=== PATIENT | male | born 1945 | race Caucasian/White ===

== ENCOUNTER 2018-02-14 14:52 | Inpatient (IN) | payer MEDICARE ==
[2018-02-14] MEDS ORDERED: ASPIRIN 81 MG PO STA (15:27)
--- NOTE | 2018-02-14 15:37 | ED ---
Chest Pain HPI - General Chief Complaint: Chest Pain Stated Complaint: Chest pain Time Seen by Provider: 02/14/18 14:57 Source: patient, family, RN notes reviewed Mode of arrival: wheelchair Limitations: no limitations - History of Present Illness Initial Comments: This is a 73-year-old male with no prior history of heart disease states he been having intermittent episodes over last week of pain going down both arms and elbows. He states it's somewhat dull in nature gets as severe as 8/10 currently is pain-free no fevers chills nausea vomiting sweats associated with it this time he states she's had more frequent and longer episodes however. He did take 81 mg aspirin today. No other complaints or modifying factors at this time MD Complaint: chest pain - Related Data Home Medications Medication Instructions Recorded Confirmed Aspirin [[place] Aspirin EC] 81 mg PO DAILY 02/14/18 02/14/18 Ferrous Sulfate [Iron] 325 mg PO DAILY 02/14/18 02/14/18 Lisinopril [Prinivil] 10 mg PO DAILY 02/14/18 02/14/18 Multivitamins, Thera [Multivitamin 1 tab PO DAILY 02/14/18 02/14/18 (formulary)] Allergies Allergy/AdvReac Type Severity Reaction Status Date / Time No Known Allergies Allergy Verified 02/14/18 15:20 Review of Systems ROS Statement: Those systems with pertinent positive or pertinent negative responses have been documented in the HPI. ROS Other: All systems not noted in ROS Statement are negative. EKG Findings - EKG Results: EKG: interpreted by ERMD, sinus rhythm (Sinus tachycardia with first-degree AV block NH interval to 12 QRS duration 80 daily since QTC 322/[address] configuration) Past Medical History Past Medical History: Hypertension History of Any Multi-Drug Resistant Organisms: None Reported Past Surgical History: No Surgical Hx Reported Additional Past Surgical History / Comment(s): ulcer Past Psychological History: No Psychological Hx Reported Smoking Status: Never smoker Past Alcohol Use History: None Reported Past Drug Use History: None Reported General Exam - General Exam Comments Initial Comments: Is a well-developed well-nourished awake alert oriented timess 3 male Limitations: no limitations General appearance: alert, in no apparent distress Head exam: Present: atraumatic, normocephalic, normal inspection Eye exam: Present: normal appearance, PERRL, EOMI. Absent: scleral icterus, conjunctival injection, periorbital swelling ENT exam: Present: normal exam, mucous membranes moist Neck exam: Present: normal inspection. Absent: tenderness, meningismus, lymphadenopathy Respiratory exam: Present: normal lung sounds bilaterally. Absent: respiratory distress, wheezes, rales, rhonchi, stridor Cardiovascular Exam: Present: normal rhythm, tachycardia, normal heart sounds. Absent: systolic murmur, diastolic murmur, rubs, gallop, clicks GI/Abdominal exam: Present: soft, normal bowel sounds. Absent: distended, tenderness, guarding, rebound, rigid Extremities exam: Present: normal inspection, full ROM, normal capillary refill. Absent: tenderness, pedal edema, joint swelling, calf tenderness Back exam: Present: normal inspection Neurological exam: Present: alert, oriented X3, CN II-XII intact Psychiatric exam: Present: normal affect, normal mood Skin exam: Present: warm, dry, intact, normal color. Absent: rash Course Vital Signs 02/14/18 02/14/18 02/14/18 14:56 15:12 15:30 Temperature 97.5 F L Pulse Rate 115 H 112 H 102 H Respiratory 18 27 H 14 Rate Blood Pressure 200/126 168/99 O2 Sat by Pulse 98 97 Oximetry Chest Pain MDM - MDM Review the imaging shows no acute findings. The lab work results are within normal limits I did discuss case the patient and his and with Dr. Pierce. Patient be admitted for evaluation by cardiology for chest pain. Disposition Clinical Impression: Chest pain Disposition: ADMITTED IP TO THIS HOSP Condition: Stable Referrals: Niall Rojo MD [Primary Care Provider] - 1-2 days
[2018-02-14 15:58] LABS: HCT 44.4 % (39.0-53.0); HGB 14.4 gm/dL (13.0-17.5); MCH 30.8 pg (25.0-35.0); MCHC 32.5 g/dL (31.0-37.0); MCV 94.7 fL (80.0-100.0); RBC 4.69 m/uL (4.30-5.90); RDW 13.1 % (11.5-15.5); WBC 4.7 k/uL (3.8-10.6)
--- NOTE | 2018-02-14 15:58 | XR ---
EXAMINATION TYPE: XR chest 2V DATE OF EXAM: 02/14/2018 COMPARISON: NONE HISTORY: Chest pain into shoulder and arm for one week. TECHNIQUE: Frontal and lateral views of the chest are obtained. FINDINGS: There is chronic parenchymal change without suspicious focal air space opacity, pleural ef fusion, or pneumothorax seen. The cardiac silhouette size is within normal limits. The osseous str uctures are intact. IMPRESSION: Chronic changes without acute pulmonary process.
[2018-02-14 16:07] LABS: Albumin 3.9 g/dL (3.5-5.0); Calcium 9.9 mg/dL (8.4-10.2); Magnesium 1.8 mg/dL (1.6-2.3); Potassium 4.4 mmol/L (3.5-5.1); Total Bilirubin 0.6 mg/dL (0.2-1.3); Total Protein 6.8 g/dL (6.3-8.2)
[2018-02-14 16:13] LABS: D-Dimer 0.43 mg/L FEU (<0.60); INR 0.9 (<1.2); Partial Thromboplastin Time 25.2 sec (22.0-30.0); Prothrombin Time 9.7 sec (9.0-12.0)
[2018-02-14 16:30] LABS: Creatine Kinase MB 5.9 ng/mL (0.0-2.4); Troponin I 0.02 ng/mL (0.000-0.034)
[2018-02-14 16:43] LABS: Band Neutrophils % 1 %; Eosinophils # (M) 0.14 k/uL (0-0.7); Lymphocytes # (M) 1.79 k/uL (1.0-4.8); Monocytes # (M) 0.05 k/uL (0-1.0); Neutrophils % (M) 57 %; Nucleated Red Blood Cells 0 /100 WBC (0-0); Total Cells Counted 100
[2018-02-14] MEDS ORDERED: NITROGLYCERIN SL TABS 0.4 MG TAB SUBLINGUAL PRN (17:16)
[2018-02-14] MEDS ORDERED: HEPARIN SODIUM,PORCINE 5,000 UNIT/ML 1 ML VIAL IV ONE (17:16)
[2018-02-14] MEDS ORDERED: HEPARIN SOD,PORK IN 0.45% NACL 25,000 UNIT in 0.45% NACL 1 250ML.BAG IV SCH (17:30)
[2018-02-14 21:21] LABS: Creatine Kinase MB 5.2 ng/mL (0.0-2.4)
[2018-02-14 21:31] LABS: Troponin I 0.076 ng/mL (0.000-0.034)
[2018-02-15 04:14] LABS: Cholesterol 194 mg/dL (<200); HDL Cholesterol 69 mg/dL (40-60); LDL Cholesterol,Calculated 112 mg/dL (0-99); Triglycerides 64 mg/dL (<150)
[2018-02-15 04:29] LABS: Creatine Kinase MB 4.4 ng/mL (0.0-2.4)
[2018-02-15 04:49] LABS: Troponin I 0.081 ng/mL (0.000-0.034)
[2018-02-15] MEDS: LISINOPRIL 10 MG TAB PO SCH ×2 (07:44→07:59)
[2018-02-15] MEDS ORDERED: ALPRAZolam 0.5 MG TAB PO PRN (08:38)
[2018-02-15] MEDS ORDERED: NITROGLYCERIN SL TABS 0.4 MG TAB SUBLINGUAL PRN ×2 (08:38→13:15)
[2018-02-15] MEDS ORDERED: ATORVASTATIN 80 MG TAB PO STA (08:38)
[2018-02-15] MEDS ORDERED: ALPRAZolam 0.25 MG TAB PO PRN (08:38)
[2018-02-15] MEDS ORDERED: SODIUM CHLORIDE 0.9% 1,000 ML in EMPTY BAG 1 BAG IV ONE (08:38)
[2018-02-15] MEDS ORDERED: ASPIRIN 325 MG TAB PO SCH (09:00)
[2018-02-15] MEDS: MULTIVITAMINS, THERA 1 EACH TAB PO SCH (09:22)
[2018-02-15] MEDS: NITROGLYCERIN OINT 1 INCH/GM PACKET TOPICAL SCH ×2 (09:23→12:54)
[2018-02-15] MEDS: METOPROLOL TARTRATE 25 MG TAB PO SCH ×2 (09:23→19:51)
[2018-02-15] MEDS: FERROUS SULFATE 325 MG TAB PO SCH (09:23)
[2018-02-15 09:39] LABS: Glucose,Whole Blood 108 mg/dL (75-99)
--- NOTE | 2018-02-15 10:40 | P.CRDCN ---
History of Present Illness History of present illness: This is a pleasant 73-year-old male past medical history significant only for hypertension. He denies history of coronary artery disease, dyslipidemia or diabetes mellitus. 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 We have been asked to see him in consultation for symptoms of chest pain. He states he has been feeling a burning sensation in the mid- sternal region with radiation down into both arms. He states he is a fairly active man on a regular basis. His symptoms are intermittent in nature and not always associated with exertion. Particularly yesterday he was up early in the morning and was at [employer] doing [place] activities all morning. Once he arrived home he again started feeling this burning sensation in his chest with radiation down his arms. The discomfort lasted approximately 1 minute and then went away on its own. He felt mildly short of breath as well. When he presented to the ED he was chest pain free. Initial EKG was unremarkable. This morning after getting up walking to the bathroom he again felt his discomfort in his chest. EKG was obtained during chest pain and it revealed ST depression in lateral leads. Nitro SL was given. EKG on arrival reveals sinus mechanism with first-degree AV block. Repeat EKG this morning shows evidence of ST depression noted in the lateral leads. Chest x-ray is negative for an acute cardiopulmonary process with chronic changes. Laboratory data reviewed, WBC 4.7, hemoglobin 14.4, d-dimer 0.43, sodium 141, potassium 4.4, magnesium 1.8, creatinine 1.33 with a GFR of 54, cardiac enzymes 0.020 CK 253, 0.076 CK 228 and 0.081 CK 186. LDL 112, HDL 69, total cholesterol 194. Current cardiac medications include aspirin 81 mg daily and lisinopril 10 mg daily. There is no old echo to review. At the time of my exam: CONSTITUTIONAL: Denies fever. Denies chills. EYES: Denies blurred vision. Denies vision changes. Denies eye pain. EARS, NOSE, MOUTH & THROAT: Denies headache. Denies sore throat. Denies ear pain. CARDIOVASCULAR: Complains of chest pain. Denies shortness of breath. Denies orthopnea. Denies PND. Denies palpitations. RESPIRATORY: Denies cough. GASTROINTESTINAL: Denies abdominal pain. Denies diarrhea. Denies constipation. Denies nausea. Denies vomiting. MUSCULOSKELETAL: Denies myalgias. INTEGUMENTARY: Denies pruitis. Denies rash. NEUROLOGIC: Denies numbness. Denies tingling. Denies weakness. PSYCHIATRIC: Denies anxiety. Denies depression. ENDOCRINE: Denies fatigue. Denies weight change. Denies polydipsia. Denies polyurina. GENITOURINARY: Denies burning, hematuria or urgency with micturation. HEMATOLOGIC: Denies history of anemia. Denies bleeding. Blood pressure 157/84 heart rate 86 afebrile maintaining oxygen saturation on nasal cannula. GENERAL: This is a 73-year-old male in no apparent distress at the time of my examination. HEENT: Head is atraumatic, normocephalic. Pupils are equal, round. Sclerae anicteric. Conjunctivae are clear. Mucous membranes of the mouth are moist. Neck is supple. There is no jugular venous distention. No carotid bruit is heard. LUNGS: Clear to auscultation no wheezes, rales or rhonchi. No chest wall tenderness is noted on palpation or with deep breathing. HEART: Regular rate and rhythm without murmurs, rubs or gallops. S1 and S2 heard. ABDOMEN: Soft, nontender. Bowel sounds are heard. No organomegaly noted. EXTREMITIES: No evidence of peripheral edema and no calf tenderness noted. VASCULAR: Radial and dorsalis pedis pulses palpated, no evidence of clubbing. NEUROLOGIC: Patient is awake, alert and oriented x3. ASSESSMENT Unstable angina with EKG changes [id number] myocardial infarction Hypertension Dyslipidemia PLAN Apply nitropaste 1 inch now. Obtain 2D echocardiogram and doppler study to assess cardiac structure and function. Initiate on lopressor 25 mg BID. We recommend he proceed with cardiac catheterization to further assess the coronary arteries. I have discussed the risks, benefits and alternative therapies for the above-mentioned procedure and for both sedation/analgesia as well as necessary blood product administration, if indicated, as they pertain to this patient. The patient has indicated understanding and acceptance of the risks and procedures discussed. Questions have been answered appropriately and he is agreeable to move forward with above stated procedure. This has been boarded with Dr. Del Angel for today. Further recommendations to follow based on clinical course. Thank you kindly for this consultation. Nurse Practitioner note has been reviewed, I agree with a documented findings and plan of care. Patient was seen and examined. Past Medical History Past Medical History: Hypertension History of Any Multi-Drug Resistant Organisms: None Reported Past Surgical History: No Surgical Hx Reported Additional Past Surgical History / Comment(s): ulcer, right hand surgery Past Anesthesia/Blood Transfusion Reactions: No Reported Reaction Past Psychological History: No Psychological Hx Reported Smoking Status: Never smoker Past Alcohol Use History: None Reported Past Drug Use History: None Reported Medications and Allergies Home Medications Medication Instructions Recorded Confirmed Type Aspirin [[place] Aspirin EC] 81 mg PO DAILY 02/14/18 02/14/18 History Ferrous Sulfate [Iron] 325 mg PO DAILY 02/14/18 02/14/18 History Lisinopril [Prinivil] 10 mg PO DAILY 02/14/18 02/14/18 History Multivitamins, Thera [Multivitamin 1 tab PO DAILY 02/14/18 02/14/18 History (formulary)] Allergies Allergy/AdvReac Type Severity Reaction Status Date / Time No Known Allergies Allergy Verified 02/14/18 15:20 Physical Exam Vitals: Vital Signs Temp Pulse Pulse Resp BP BP BP 02/15/18 08:06 162/102 02/15/18 08:00 200/112 02/15/18 07:35 192/110 02/15/18 07:30 211/123 02/15/18 07:21 97.4 F L 87 18 173/105 02/15/18 04:00 97.7 F 72 14 126/76 02/15/18 03:06 15 02/15/18 00:00 84 15 02/14/18 23:43 97.7 F 84 15 138/85 02/14/18 21:01 97.5 F L 81 20 145/87 02/14/18 20:15 141/86 02/14/18 20:00 97.7 F 81 15 164/104 02/14/18 19:00 79 18 154/95 02/14/18 18:00 80 18 137/89 02/14/18 17:30 79 19 131/93 02/14/18 17:00 89 20 128/81 02/14/18 16:30 89 21 133/91 02/14/18 15:30 102 H 14 168/99 02/14/18 15:12 112 H 27 H 02/14/18 14:56 97.5 F L 115 H 18 200/126 Pulse Ox 12/17/18 08:06 02/15/18 08:00 02/15/18 07:35 02/15/18 07:30 02/15/18 07:21 96 02/15/18 04:00 98 02/15/18 03:06 02/15/18 00:00 02/14/18 23:43 98 02/14/18 21:01 02/14/18 20:15 02/14/18 20:00 90 L 02/14/18 19:00 97 02/14/18 18:00 96 02/14/18 17:30 98 02/14/18 17:00 98 02/14/18 16:30 96 02/14/18 15:30 97 02/14/18 15:12 02/14/18 14:56 98 Intake and Output 02/14/18 02/15/18 02/15/18 22:59 06:59 14:59 Intake Total 150 64.667 Balance 150 64.667 Intake: Intake, IV Titration 64.667 Amount Heparin Sod,Pork in 0.45% 64.667 NaCl 25,000 unit In 0.45 % NaCl 1 250ml.bag @ 11. 48 UNITS/KG/HR 9.99 mls/ hr IV .Q24H [facility] Rx#: [id number] Oral 150 Other: # Voids 1 Weight 89 kg Results 02/14/18 15:13 02/14/18 15:13 Cardiac Enzymes 02/14/18 02/14/18 02/14/18 Range/Units 15:13 15:13 20:23 AST 44 (17-59) U/L CK-MB (CK-2) 5.9 H 5.2 H (0.0-2.4) ng/mL Troponin I 0.020 0.076 H* (0.000-0.034) ng/mL 02/15/18 Range/Units 03:20 AST (17-59) U/L CK-MB (CK-2) 4.4 H (0.0-2.4) ng/mL Troponin I 0.081 H* (0.000-0.034) ng/mL Coagulation 02/14/18 02/14/18 Range/Units 15:13 23:52 PT 9.7 (9.0-12.0) sec APTT 25.2 49.4 H (22.0-30.0) sec Lipids 02/15/18 Range/Units 03:20 Triglycerides 64 (<150) mg/dL Cholesterol 194 (<200) mg/dL HDL Cholesterol 69 H (40-60) mg/dL CBC 02/14/18 Range/Units 15:13 WBC 4.7 (3.8-10.6) k/uL RBC 4.69 (4.30-5.90) m/uL Hgb 14.4 (13.0-17.5) gm/dL Hct 44.4 (39.0-53.0) % Plt Count (150-450) k/uL Comprehensive Metabolic Panel 02/14/18 Range/Units 15:13 Sodium 141 (137-145) mmol/L Potassium 4.4 (3.5-5.1) mmol/L Chloride 109 H (98-107) mmol/L Carbon Dioxide 23 (22-30) mmol/L BUN 17 (9-20) mg/dL Creatinine 1.33 H (0.66-1.25) mg/dL Glucose 167 H (74-99) mg/dL Calcium 9.9 (8.4-10.2) mg/dL AST 44 (17-59) U/L ALT 38 (21-72) U/L Alkaline Phosphatase 68 (38-126) U/L Total Protein 6.8 (6.3-8.2) g/dL Albumin 3.9 (3.5-5.0) g/dL Current Medications Generic Name Dose Route Start Last Admin Trade Name Freq PRN Reason Stop Dose Admin Aspirin 325 mg 02/15/18 09:00 02/15/18 07:44 Aspirin PO Not Given DAILY [facility] Ferrous Sulfate 325 mg 02/15/18 12:00 Feosol PO 1200 [facility] Heparin Sodium/Sodium Chloride 250 mls @ 9.99 mls/hr 02/14/18 17:30 02/15/18 00:46 25,000 unit/ Sodium Chloride IV 11.48 units/kg/hr .Q24H [facility] 10 mls/hr Titration Protocol 11.48 UNITS/KG/HR Lisinopril 10 mg 02/15/18 09:00 02/15/18 07:59 Zestril PO 10 mg DAILY [facility] Administration Metoprolol Tartrate 25 mg 02/15/18 09:00 Lopressor PO BID [facility] Multivitamins 1 each 02/15/18 12:00 Theragran PO 1200 [facility]Y Nitroglycerin 1 inch 02/15/18 08:30 Nitro-Bid Oint TOPICAL Q6HR [facility] Intake and Output 02/14/18 02/15/18 02/15/18 22:59 06:59 14:59 Intake Total 150 64.667 Balance 150 64.667 Intake: Intake, IV Titration 64.667 Amount Heparin Sod,Pork in 0.45% 64.667 NaCl 25,000 unit In 0.45 % NaCl 1 250ml.bag @ 11. 48 UNITS/KG/HR 9.99 mls/ hr IV .Q24H [facility] Rx#: [id number] Oral 150 Other: # Voids 1 Weight 89 kg 02/14/18 15:13 02/14/18 15:13
[2018-02-15] MEDS ORDERED: fentaNYL (PF) 50 MCG/ML 2 ML AMP ONE (11:21)
[2018-02-15] MEDS ORDERED: LIDOCAINE 1% INJ 10MG/ML (20 ML MDV) ONE (11:21)
[2018-02-15] MEDS ORDERED: VERAPAMIL 2.5 MG/ML 2 ML AMP ONE (11:34)
[2018-02-15] MEDS ORDERED: IV FLUID CONTINUATION 1,000 ML IV ONE (11:42)
[2018-02-15] MEDS ORDERED: fentaNYL (PF) 50 MCG/ML 2 ML AMP IV ONE (11:45)
[2018-02-15] MEDS ORDERED: LIDOCAINE 1% INJ 10MG/ML (20 ML MDV) SQ ONE (11:50)
[2018-02-15] MEDS ORDERED: VERAPAMIL SYRINGE (5 MG/10 ML) INTRAARTER ONE (11:52)
[2018-02-15] MEDS ORDERED: BIVALIRUDIN BOLUS 250 MG/50 ML IV ONE (11:58)
[2018-02-15] MEDS ORDERED: BIVALIRUDIN 250 MG in SODIUM CHLORIDE 0.9% 50 ML IV ONE ×2 (11:59→12:57)
[2018-02-15] MEDS ORDERED: TICAGRELOR 90 MG TAB ONE (12:05)
[2018-02-15] MEDS ORDERED: TICAGRELOR 90 MG TAB PO ONE (12:08)
[2018-02-15] MEDS ORDERED: IOPAMIDOL-370 125ML BTL INJ ONE (12:20)
--- NOTE | 2018-02-15 12:29 | ECHOF ---
Referral Reason:cp MEASUREMENTS -------- HEIGHT: 185.4 cm WEIGHT: 88.9 kg BP: RVIDd: 2.7 cm (< 3.3) IVSd: 1.3 cm (0.6 - 1.1) LVIDd: 4.4 cm (3.9 - 5.3) LVPWd: 1.2 cm (0.6 - 1.1) IVSs: 1.7 cm LVIDs: 1.5 cm LVPWs: 1.7 cm Ao Diam: 3.4 cm (2.0 - 3.7) AV Cusp: 2.4 cm (1.5 - 2.6) LA Diam: 3.1 cm (2.7 - 3.8) MV EXCURSION: 14.230 mm (> 18.000) MV EF SLOPE: 18 mm/s (70 - 150) EPSS: 0.1 cm MV E Tulio: 0.54 m/s MV DecT: 163 ms MV A Tulio: 1.16 m/s MV E/A Ratio: 0.46 AR PHT: 412 ms RAP: 5.00 mmHg RVSP: 29.82 mmHg FINDINGS -------- Sinus rhythm. This was a technically good study. The left ventricular size is normal. There is mild concentric left ventricular hypertrophy. Overa ll left ventricular systolic function is mildly impaired with, an EF between 45 - 50 %. Basal infer ior LV wall motion is hypokinetic. Apical inferior LV wall motion is hypokinetic. The right ventricle is normal in size and function. The left atrium is normal in size. The right atrium is normal in size. Aortic valve is trileaflet and is mildly thickened. The mitral valve leaflets are mildly thickened. Mild mitral regurgitation is present. Mild tricuspid regurgitation present. The right ventricular systolic pressure, as measured by Doppl er, is 29.82mmHg. Pulmonic valve appears structurally normal. The aortic root size is normal. Normal inferior vena cava with normal inspiratory collapse consistent with estimated right atrial pre ssure of 5 mmHg. The pericardium is normal. CONCLUSIONS -------- 1. Sinus rhythm. 2. This was a technically good study. 3. The left ventricular size is normal. 4. There is mild concentric left ventricular hypertrophy. 5. Overall left ventricular systolic function is mildly impaired with, an EF between 45 - 50 %. 6. Basal inferior LV wall motion is hypokinetic. 7. Apical inferior LV wall motion is hypokinetic. 8. The right ventricle is normal in size and function. 9. The left atrium is normal in size. 10. The right atrium is normal in size. 11. Aortic valve is trileaflet and is mildly thickened. 12. The mitral valve leaflets are mildly thickened. 13. Mild mitral regurgitation is present. 14. Mild tricuspid regurgitation present. 15. The right ventricular systolic pressure, as measured by Doppler, is 29.82mmHg. 16. Pulmonic valve appears structurally normal. 17. The aortic root size is normal. 18. Normal inferior vena cava with normal inspiratory collapse consistent with estimated right atrial pressure of 5 mmHg. 19. The pericardium is normal. RADIOLOGY ORDERLY: Ellen Ochoa RDCS
[2018-02-15] MEDS ORDERED: IOPAMIDOL-370 100ML BTL INJ ONE (13:08)
[2018-02-15] MEDS ORDERED: ZOLPIDEM 5 MG TAB PO PRN (13:15)
[2018-02-15] MEDS ORDERED: RX INFO: IV CONTRAST WAS GIVEN 1 EACH MISC MISCELLANE PRN (13:15)
[2018-02-15] MEDS ORDERED: ATROPINE SULFATE 0.1 MG/ML 10ML SYRINGE IV PRN (13:15)
[2018-02-15] MEDS ORDERED: SODIUM CHLORIDE 0.9% 1,000 ML IV SCH (13:15)
[2018-02-15] MEDS ORDERED: MAG HYDROX/AL HYDROX/SIMETH 30 ML CUP PO PRN (13:15)
--- NOTE | 2018-02-15 17:48 | P.HPIM ---
History of Present Illness H&P Date: 02/15/18 Chief Complaint: Chest pain This is a 73-year-old gentleman patient of Dr. Spencer. He has underlying history of hypertension, hyperlipidemia,, CK D, BPH, with no known history of diabetes mellitus or CAD. Patient was seen in emergency room secondary to chest discomfort that was progressive in nature starting 1 week prior to admission substernal lasting 1 minute radiating to the right shoulder. This usually with exertion, patient has more significant pain that comes on a daily basis now, and lasting 5 minutes during his last episode at [facility] on the day of admission. Patient was subsequently seen in the emergency room with consultation to cardiology secondary to unstable angina. Ex Imaging studies in the ER include sinus rhythm with first-degree AV block, subsequent EKG shows severe depression lateral leads, d-dimer 0.43, troponin was 0.02 0.076 .081 .057 patient was subsequently seen by cardiology, Nitropaste was applied, Lopressor 25 mg twice a day aspirin, cardiac cath was performed today 02/15/2018 requiring 2 stents in the LAD. echocardiogram requested currently pending, other laboratories include creatinine 1.33, random blood sugar of 167 normal liver function test d-dimer normal 0.43 Review of Systems Constitutional: Reports as per HPI, Denies anorexia, Denies chills, Denies chronic headaches, Denies chronic pain, Denies daytime sleepiness, Denies fatigue, Denies fever, Denies lethargy, Denies malaise, Denies night sweats, Denies poor appetite, Denies sweats, Denies weakness, Denies weight gain, Denies weight loss Ears, nose, mouth and throat: Reports as per HPI, Denies ant. neck pain, Denies bleeding gums, Denies dental pain, Denies dysphagia, Denies epistaxis, Denies headache, Denies hoarseness, Denies mouth pain, Denies nasal congestion, Denies nasal discharge, Denies neck fullness/pressure, Denies neck lump, Denies nose pain, Denies odynophagia, Denies post-nasal drip, Denies sinus pain, Denies sinus pressure, Denies swelling in mouth, Denies swelling in throat, Denies sore throat, Denies vertigo, Denies voice changes Cardiovascular: Reports as per HPI, Reports chest pain, Denies claudication, Denies decreased exercise tolerance, Denies dyspnea on exertion, Denies edema, Denies high blood pressure, Denies irregular heart beat, Denies leg edema, Denies lightheadedness, Denies orthopnea, Denies palpitations, Denies paroxysmal nocturnal dyspnea, Denies phlebitis, Denies rapid heart beat, Denies shortness of breath, Denies syncope Respiratory: Reports as per HPI, Denies congestion, Denies cough, Denies cough with sputum, Denies dyspnea, Denies excessive sputum, Denies hemoptysis, Denies home oxygen, Denies pain, Denies pain on inspiration, Denies pleurisy, Denies respiratory infections, Denies sleep apnea, Denies snoring, Denies wheezing Gastrointestinal: Reports as per HPI, Denies abdominal pain, Denies belching, Denies bloating, Denies BRBPR, Denies change in bowel habits, Denies coffee ground emesis, Denies constipation, Denies diarrhea, Denies dyspepsia, Denies early satiety, Denies excessive gas, Denies heartburn, Denies hematemesis, Denies hematochezia, Denies indigestion, Denies jaundice, Denies lactose intolerance, Denies loss of appetite, Denies melena, Denies nausea, Denies vomiting Genitourinary: Reports as per HPI Musculoskeletal: Reports as per HPI, Denies arm numbness/tingling, Denies atrophy, Denies fractures, Denies frequent falls, Denies gait dysfunction, Denies hot joints, Denies leg numbness/tingling, Denies limitation of motion, Denies loss of height, Denies low back pain, Denies morning stiffness, Denies muscle cramps, Denies muscle weakness, Denies myalgias, Denies neck pain, Denies neck stiffness, Denies prior amputations, Denies redness of joints, Denies shooting arm pain, Denies shooting leg pain Integumentary: Reports as per HPI Neurological: Reports as per HPI, Denies aphasia, Denies ataxia, Denies balance difficulties, Denies burning pain, Denies change in mentation, Denies change in smell/taste, Denies change in speech, Denies confusion, Denies convulsions, Denies double vision, Denies gait dysfunction, Denies head injury, Denies headaches, Denies hearing difficulties, Denies lack of coordination, Denies loss of vision, Denies memory loss, Denies migraines, Denies motor disturbance, Denies numbness, Denies paralysis, Denies paresthesias, Denies seizures, Denies sensory deficit, Denies spasticity, Denies syncope, Denies tic, Denies tingling , Denies transient paralysis, Denies tremors, Denies vertigo, Denies weakness, Denies visual changes Psychiatric: Reports as per HPI Endocrine: Reports as per HPI Hematologic/Lymphatic: Reports as per HPI Allergic/Immunologic: Reports as per HPI Past Medical History Past Medical History: Hypertension History of Any Multi-Drug Resistant Organisms: None Reported Past Surgical History: No Surgical Hx Reported Additional Past Surgical History / Comment(s): ulcer, right hand surgery Past Anesthesia/Blood Transfusion Reactions: No Reported Reaction Past Psychological History: No Psychological Hx Reported Smoking Status: Never smoker Past Alcohol Use History: None Reported Past Drug Use History: None Reported - Past Family History Father History Unknown: Yes (Pancreatitis secondary to alcoholism) Mother History Unknown: Yes (COPD angina diabetes mellitus gallbladder disease carotid stenosis) Brother(s) Family Medical History: Unable to Obtain Sister(s) History Unknown: Yes (Aplastic anemia and diabetes mellitus COPD hypertension CAD hypothyroidism) Daughter(s) History Unknown: Yes (Hypertension breast cancer gallbladder disease) Son(s) History Unknown: Yes (Hypertension) Medications and Allergies Home Medications Medication Instructions Recorded Confirmed Type Aspirin [[place] Aspirin EC] 81 mg PO DAILY 02/14/18 02/14/18 History Ferrous Sulfate [Iron] 325 mg PO DAILY 02/14/18 02/14/18 History Lisinopril [Prinivil] 10 mg PO DAILY 02/14/18 02/14/18 History Multivitamins, Thera [Multivitamin 1 tab PO DAILY 02/14/18 02/14/18 History (formulary)] Allergies Allergy/AdvReac Type Severity Reaction Status Date / Time No Known Allergies Allergy Verified 02/14/18 15:20 Physical Exam Vitals: Vital Signs Temp Pulse Pulse Resp BP BP BP 02/15/18 17:00 69 18 130/92 02/15/18 16:00 73 18 138/83 02/15/18 15:17 74 18 02/15/18 15:00 97.3 F L 74 18 124/72 02/15/18 14:30 74 18 126/82 02/15/18 14:00 75 18 149/89 02/15/18 13:45 62 18 144/79 02/15/18 13:30 97.1 F L 61 18 146/87 18 08:39 97.3 F L 86 18 157/84 18 08:06 162/102 02/15/18 08:00 200/112 02/15/18 07:35 192/110 02/15/18 07:30 211/123 02/15/18 07:21 97.4 F L 87 18 173/105 02/15/18 04:00 97.7 F 72 14 126/76 02/15/18 03:06 15 02/15/18 00:00 84 15 02/14/18 23:43 97.7 F 84 15 138/85 02/14/18 21:01 97.5 F L 81 20 145/87 02/14/18 20:15 141/86 02/14/18 20:00 97.7 F 81 15 164/104 02/14/18 19:00 79 18 154/95 02/14/18 18:00 80 18 137/89 Pulse Ox 02/15/18 17:00 97 18 16:00 98 02/15/18 15:17 02/15/18 15:00 96 02/15/18 14:30 97 18 14:00 100 02/15/18 13:45 98 02/15/18 13:30 96 18 08:39 95 18 08:06 02/15/18 08:00 02/15/18 07:35 02/15/18 07:30 02/15/18 07:21 96 02/15/18 04:00 98 02/15/18 03:06 02/15/18 00:00 02/14/18 23:43 98 18 21:01 02/14/18 20:15 02/14/18 20:00 90 L 02/14/18 19:00 97 02/14/18 18:00 96 Intake and Output 02/15/18 02/15/18 02/15/18 06:59 14:59 22:59 Intake Total 64.667 570.14 Output Total 300 500 Balance 64.667 270.14 -500 Intake: IV 570.14 Intake, IV Titration 64.667 Amount Heparin Sod,Pork in 0.45% 64.667 NaCl 25,000 unit In 0.45 % NaCl 1 250ml.bag @ 11. 48 UNITS/KG/HR 9.99 mls/ hr IV .Q24H RAMY Rx#: [id number] Output: Urine 300 500 Other: # Voids 1 - Constitutional General appearance: cooperative, no acute distress - EENT Eyes: anicteric sclerae, EOMI, PERRLA, dentition normal, poor dentition, normal appearance ENT: NA/AT - Neck Neck: no lymphadenopathy, normal ROM, no other, no rigidity, no stridor, no thyromegaly - Respiratory Respiratory: bilateral: CTA, negative: diminished, dullness, rales, rhonchi - Cardiovascular Rhythm: regular Heart sounds: normal: S1, S2 - Gastrointestinal General gastrointestinal: normal bowel sounds, soft - Integumentary Integumentary: normal, normal turgor - Neurologic Neurologic: CNII-XII intact - Musculoskeletal Musculoskeletal: gait normal, generalized weakness - Psychiatric Psychiatric: A&O x's 3, appropriate affect, intact judgment & insight Results CBC & Chem 7: 02/14/18 15:13 02/14/18 15:13 Labs: Abnormal Lab Results - Last 24 Hours (Table) 02/14/18 02/14/18 02/15/18 Range/Units 20:23 23:52 03:20 APTT 49.4 H (22.0-30.0) sec POC Glucose (mg/dL) (75-99) mg/dL Total Creatine Kinase 228 H 186 H (55-170) U/L CK-MB (CK-2) 5.2 H 4.4 H (0.0-2.4) ng/mL Troponin I 0.076 H* 0.081 H* (0.000-0.034) ng/mL LDL Cholesterol, Calc (0-99) mg/dL HDL Cholesterol (40-60) mg/dL 02/15/18 02/15/18 02/15/18 Range/Units 03:20 09:37 09:57 APTT (22.0-30.0) sec POC Glucose (mg/dL) 108 H (75-99) mg/dL Total Creatine Kinase (55-170) U/L CK-MB (CK-2) (0.0-2.4) ng/mL Troponin I 0.057 H* (0.000-0.034) ng/mL LDL Cholesterol, Calc 112 H (0-99) mg/dL HDL Cholesterol 69 H (40-60) mg/dL Laboratory Results WBC 4.7 k/uL (3.8-10.6) 02/14/18 15:13 RBC 4.69 m/uL (4.30-5.90) 02/14/18 15:13 Hgb 14.4 gm/dL (13.0-17.5) 02/14/18 15:13 Hct 44.4 % (39.0-53.0) 02/14/18 15:13 MCV 94.7 fL (80.0-100.0) 02/14/18 15:13 MCH 30.8 pg (25.0-35.0) 02/14/18 15:13 MCHC 32.5 g/dL (31.0-37.0) 02/14/18 15:13 RDW 13.1 % (11.5-15.5) 02/14/18 15:13 Plt Count k/uL (150-450) 02/14/18 15:13 Neutrophils % (Manual) 57 % 02/14/18 15:13 Band Neutrophils % 1 % 02/14/18 15:13 Lymphocytes % (Manual) 38 % 02/14/18 15:13 Monocytes % (Manual) 1 % 02/14/18 15:13 Eosinophils % (Manual) 3 % 02/14/18 15:13 Neutrophils # (Manual) 2.70 k/uL (1.3-7.7) 02/14/18 15:13 Lymphocytes # (Manual) 1.79 k/uL (1.0-4.8) 02/14/18 15:13 Monocytes # (Manual) 0.05 k/uL (0-1.0) 02/14/18 15:13 Eosinophils # (Manual) 0.14 k/uL (0-0.7) 02/14/18 15:13 Nucleated RBCs 0 /100 WBC (0-0) 02/14/18 15:13 Manual Slide Review Performed 02/14/18 15:13 PT 9.7 sec (9.0-12.0) 02/14/18 15:13 INR 0.9 (<1.2) 02/14/18 15:13 APTT 49.4 sec (22.0-30.0) H 02/14/18 23:52 D-Dimer 0.43 mg/L FEU (<0.60) 02/14/18 15:13 Sodium 141 mmol/L (137-145) 02/14/18 15:13 Potassium 4.4 mmol/L (3.5-5.1) 02/14/18 15:13 Chloride 109 mmol/L (98-107) H 02/14/18 15:13 Carbon Dioxide 23 mmol/L (22-30) 02/14/18 15:13 Anion Gap 9 mmol/L 02/14/18 15:13 BUN 17 mg/dL (9-20) 02/14/18 15:13 Creatinine 1.33 mg/dL (0.66-1.25) H 02/14/18 15:13 Est GFR (CKD-EPI)AfAm 62 (>60 ml/min/1.73 sqM) 02/14/18 15:13 Est GFR (CKD-EPI)NonAf 54 (>60 ml/min/1.73 sqM) 02/14/18 15:13 Glucose 167 mg/dL (74-99) H 02/14/18 15:13 POC Glucose (mg/dL) 108 mg/dL (75-99) H 02/15/18 09:37 POC Glu Body Welder ID [place] Lau 02/15/18 09:37 Calcium 9.9 mg/dL (8.4-10.2) 02/14/18 15:13 Magnesium 1.8 mg/dL (1.6-2.3) 02/14/18 15:13 Total Bilirubin 0.6 mg/dL (0.2-1.3) 02/14/18 15:13 AST 44 U/L (17-59) 02/14/18 15:13 ALT 38 U/L (21-72) 02/14/18 15:13 Alkaline Phosphatase 68 U/L (38-126) 02/14/18 15:13 Total Creatine Kinase 186 U/L (55-170) H 02/15/18 03:20 CK-MB (CK-2) 4.4 ng/mL (0.0-2.4) H 02/15/18 03:20 CK-MB (CK-2) Rel Index 2.4 02/15/18 03:20 Troponin I 0.057 ng/mL (0.000-0.034) H* 02/15/18 09:57 NT-Pro-B Natriuret Pep 240 pg/mL 02/14/18 15:13 Total Protein 6.8 g/dL (6.3-8.2) 02/14/18 15:13 Albumin 3.9 g/dL (3.5-5.0) 02/14/18 15:13 Triglycerides 64 mg/dL (<150) 02/15/18 03:20 Cholesterol 194 mg/dL (<200) 02/15/18 03:20 LDL Cholesterol, Calc 112 mg/dL (0-99) H 02/15/18 03:20 HDL Cholesterol 69 mg/dL (40-60) H 02/15/18 03:20 Thrombosis Risk Factor Assmnt - DVT/VTE Prophylaxis DVT/VTE Prophylaxis: Low risk, early ambulation encouraged - Choose All That Apply Any of the Below Risk Factors Present?: No Other Risk Factors: Yes Each Risk Factor Represents 2 Points: Age 61-74 years Other congenital or acquired thrombophilia - If yes, enter type in comment: No Thrombosis Risk Factor Assessment Total Risk Factor Score: 2 Thrombosis Risk Factor Assessment Level: Low Risk Assessment and Plan Plan: 1. Acute non-STEMI with mildly elevated troponin, requiring 2 cardiac stents in the LAD, cardiac cath performed 02/15/[address] VC randolph echocardiogram performed showing concentric LVH mild, EF 45-50%, basal inferior apical inferior wall hypokinesia, aortic valve trileaflet mild taken mild MR and mild TR. Right ventricular systolic pressure 29 pericardium is normal. Patient's continue and was started on pill into aspirin beta blockers, statins patient would also be screened for other risk factors including sure diabetes 2. Impaired random blood sugars, Accu-Cheks to be done, hemoglobin A1c 3. Hypertension on Prinivil 10 mg, with cardiac prudent to medications metoprolol has been added at 25 mg twice a day, 4. Hyperlipidemia new start Lipitor 80 mg 5. BPH without lower urinary tract symptomatology 6. Acute renal is insufficiency, against underlying CK D stage II or 3, no baseline creatinine, current N3 of 1.33 GFR 54 GI prophylaxis Pepcid DVT prophylaxis
--- NOTE | 2018-02-15 18:13 | CC ---
CARDIAC CATHETERIZATION REPORT Mr. Childs is a 73-year-old male with a known history of hypertension who presented with symptoms of chest discomfort associated with mild elevation of troponin consistent with [id number]-elevation myocardial infarction. In view of that and after evaluation by Dr. Angella Saldivar, recommendation was made regarding cardiac catheterization. The procedure, its risks and complications were discussed with the patient, who was in full understanding and agreement. PROCEDURE: Patient was brought to the electroplating laborer in a fasting, semi-sedated state after receiving fentanyl and Benadryl and achieving a moderate conscious sedated state. Using Xylocaine anesthesia and Seldinger technique, a 6-Azeri sheath was introduced in the right radial artery. Selective right and left coronary angiography was performed using 5-Azeri 3-1/2 Bend left Gabi and 4 Bend right Gabi catheters. Multiple views of the coronary arteries, including hemiaxial views, were obtained. The right Gabi catheter was used to cross the aortic valve and pressures were calculated. Following that, catheters were removed and images were reviewed. FINDINGS: FLUOROSCOPY: There was severe calcification involving all the coronary arteries, but predominantly the LAD in the proximal and mid segment. LEFT MAIN: This is a short-sized vessel bifurcating into left circumflex and left anterior descending artery. The left main coronary artery has no evidence of high-grade stenosis. LEFT ANTERIOR DESCENDING ARTERY: This is a heavily calcified vessel reaching toward the apex with a wrap around the apex segment giving rise to a moderately sized diagonal branch in mid segment. The left anterior descending artery is tortuous proximally. It has a 30% to 40% plaque in the mid segment after the takeoff of the first septal media librarian it has a 99% stenosis. Following that and after the takeoff of the first diagonal branch, there is another 70% to 80% stenosis. The rest of the vessel has diffuse intimal disease without any evidence of high-grade stenosis. LEFT CIRCUMFLEX: This is a nondominant vessel giving rise to a large obtuse marginal branch, quite tortuous proximally. The second obtuse marginal branch is small in caliber. The proximal left circumflex has a 20% to 30% plaque. The first obtuse marginal branch has mild intimal disease. The second obtuse marginal branch is diffusely diseased with an area of stenosis up to 70%. The rest of the vessel has no high-grade stenosis. RIGHT CORONARY ARTERY: This is a large dominant vessel bifurcating into PDA and posterolateral segment and branches. The right coronary artery has a 20% to 30% proximal and mid segment. The distal vessel is calcified but has no evidence of high- grade stenosis. LEFT VENTRICULOGRAM: Left ventriculogram was not performed. HEMODYNAMICS: There was no gradient across the aortic valve. The left ventricular end- diastolic pressure was 8 mmHg. CONCLUSION: 1. Heavily calcified coronary arteries, predominantly the LAD. 2. Critical stenosis in the mid LAD in two segments. 3. Moderate significant disease in the second obtuse marginal branch that is small in caliber. 4. Mild disease in the right coronary artery. RECOMMENDATIONS: In view of findings and anatomy, I have recommended proceeding with angioplasty and stenting. The procedure, its risks and complication were discussed with the patient, who is in full understanding and agreement. MMODL / IJN: [id number] /
--- NOTE | 2018-02-15 18:34 | PTCA ---
PERCUTANEOUSTRANS CORORONARY ANGIOGRAPHY Mr. Childs is a 73-year-old male with no prior documented coronary artery disease who presented with [id number]-elevation myocardial infarction, underwent cardiac catheterization and was found to have critical stenosis involving the mid, heavily calcified LAD. Recommendations were made regarding angioplasty and stenting. The procedure, its risks and complications were discussed with the patient, who was in full understanding and agreement. PROCEDURE: A 6-Beninese EBU 3.75 guiding catheter was introduced into the system. That catheter was subsequently changed to a 6-Beninese FL3.5 guiding catheter. After cannulating the left main, a 0.014 balanced medium-weight J-wire was advanced across the lesions and stented. A 0.014 Whisper J-wire was advanced and positioned distally in the distal LAD. Subsequently a 2.5 x 12 mm Trek balloon was advanced, and 2 inflations at a maximum of 10 atmospheres were done. Following that, the balloon was removed and attempts to advance a 3.0 x 18 mm Xience Ade were unsuccessful. Subsequently the BMW J- wire was advanced and a guideline was advanced, and in spite of the guideline, there was inability to advance the stent. At that point, the guideline was removed and a 0.014 Whisper J-wire was advanced and positioned distally over a FineCross. Subsequently the wire was removed and it was exchanged to a Mailman 0.014. After positioning the Mailman distally, the FineCross catheter was removed and a 3.0 x 18 mm Xience Ade stent was advanced, deployed and post dilated at 16 atmospheres. Following that, the balloon was removed and the lesion was rewired using the Whisper J-wire and the FineCross, and subsequently that was exchanged to a Mailman, and using the geronimo wire fashion, the 3.0 x 15 mm Xience Ade stent was deployed distal to the first one and postdilated at 18 atmospheres. Following that, the balloon was removed and a 3.25 x 12 mm NC Trek balloon was advanced, and inflation in the overlap segment at 14 atmospheres was done. After the last inflation, after appropriate wait, the balloon and the guidewire were withdrawn back into the guiding catheter. Images were obtained and repeated. Those images revealed stable successful stenting. At that point, the guiding catheter , the balloon and the guidewire were removed. The sheath was removed. Hemostasis was obtained with deployment of a TR band. There was no immediate complication. Patient was returned to his room in stable condition. Of note, the patient received Angiomax per protocol as well as oral loading dose of Brilinta. He had no chest discomfort with the inflation. There were mild EKG changes that resolved. RESULTS: Successful stenting of the mid LAD in a very heavily calcified segment with reduction of stenosis from 99% to less than 15%. RECOMMENDATION: Patient will be continued on aspirin, Brilinta, beta ashlee and HUMA inhibitor. The importance of dual antiplatelet treatment was discussed with the patient, who was in full understanding and agreement. Duration of the procedure was 84 minutes. BRANDEN / CHARLIEN: [id number] / NIRMALA
[2018-02-15] MEDS: FAMOTIDINE 20 MG TAB PO SCH (19:50)
[2018-02-16 04:07] LABS: Hemoglobin A1C 6.2 % (4.0-6.0)
[2018-02-16 06:55] LABS: Anion Gap 5 mmol/L; Blood Urea Nitrogen 16 mg/dL (9-20); Calcium 9.2 mg/dL (8.4-10.2); Carbon Dioxide 23 mmol/L (22-30); Chloride 110 mmol/L (98-107); Glucose 97 mg/dL (74-99); Potassium 4.5 mmol/L (3.5-5.1); Sodium 138 mmol/L (137-145)
[2018-02-16] MEDS: METOPROLOL TARTRATE 25 MG TAB PO SCH ×2 (08:08→20:22)
[2018-02-16] MEDS: FERROUS SULFATE 325 MG TAB PO SCH (08:09)
[2018-02-16] MEDS: MULTIVITAMINS, THERA 1 EACH TAB PO SCH (08:09)
[2018-02-16] MEDS: ASPIRIN 81 MG PO SCH (08:09)
[2018-02-16] MEDS: TICAGRELOR 90 MG TAB PO SCH ×2 (08:09→20:22)
[2018-02-16] MEDS: FAMOTIDINE 20 MG TAB PO SCH ×2 (08:09→20:22)
[2018-02-16] MEDS: LISINOPRIL 10 MG TAB PO SCH (08:10)
[2018-02-16 10:00] VITALS: BMI 24.3
--- NOTE | 2018-02-16 11:38 | P.PN ---
Subjective Progress Note Date: 02/16/18 Principal diagnosis: Non-STEMI This is a pleasant 73-year-old gentleman with known history of hypertension who presented to the hospital with a non-Q-wave myocardial infarction. He was taken to the cardiac animal laboratory helper where he was found to have a heavily calcified LAD, other coronary arteries were also heavily calcified. Critical stenosis noted in the mid LAD for which patient underwent angioplasty and stent placement. Blood pressure this morning 132/80 with a heart rate in the 60s, 96% on room air. Sodium 138, potassium 4.5, BUN 16, creatinine 0.9. Patient feels well this morning denies any chest pain and breathing overall is stable. Echocardiogram with Doppler study revealed an ejection fraction of 45- 50%. Objective - Vital Signs Vital signs: Vital Signs Temp 98.2 F 02/16/18 08:00 Pulse 63 02/16/18 08:00 Resp 18 02/16/18 08:00 BP 132/86 02/16/18 08:00 Pulse Ox 96 02/16/18 08:00 Intake & Output 02/15/18 02/16/18 02/16/18 18:59 06:59 18:59 Intake Total 810.14 610 480 Output Total 800 Balance 10.14 610 480 Weight 88.5 kg 88.5 kg Intake: IV 570.14 610 Invasive Line 1 10 Sodium Chloride 0.9% 1, 600 000 ml @ 100 mls/hr IV . Q10H RAMY Rx#:[id number] Oral 240 480 Output: Urine 800 Other: # Voids 1 - Exam PHYSICAL EXAMINATION: GENERAL: 73-year-old gentleman in no acute distress at the time of my examination HEENT: Head is atraumatic, normocephalic. Pupils equal, round. Sclera anicteric. Conjunctiva are clear. Mucous membranes of the mouth are moist. Neck is supple. There is no elevated jugular venous pressure. No carotid bruit is heard. HEART EXAMINATION: Heart S1, S2 normal. No murmur or gallop heard. CHEST EXAMINATION: Lungs are clear to auscultation and precussion. No chest wall tenderness is noted on palpation or with deep breathing. ABDOMEN: Soft, nontender. Bowel sounds are heard. No organomegaly noted. EXTREMITIES: 2+ peripheral pulses with no evidence of peripheral edema and no calf tenderness noted. Right radial site clean and dry, good distal pulse. NEUROLOGIC patient is awake, alert and oriented X3. . - Labs CBC & Chem 7: 02/14/18 15:13 02/16/18 05:17 Labs: Abnormal Lab Results - Last 24 Hours (Table) 02/15/18 02/15/18 02/16/18 Range/Units 16:07 16:07 05:17 Chloride 110 H (98-107) mmol/L Hemoglobin A1c 6.2 H (4.0-6.0) % Troponin I 0.062 H* (0.000-0.034) ng/mL Assessment and Plan Plan: Assessment and plan #1 non-Q-wave NV status post angioplasty and stenting of the LAD. #2 hypertension #3 hyperlipidemia Plan We will continue the patient on his current medications. Plan for possible discharge home in 24 hours if stable. DNP note has been reviewed, I agree with a documented findings and plan of care. Patient was seen and examined.
--- NOTE | 2018-02-16 15:32 | P.PN ---
Subjective Progress Note Date: 02/16/18 This is a 73-year-old gentleman patient of Dr. Spencer. He has underlying history of hypertension, hyperlipidemia,, CK D, BPH, with no known history of diabetes mellitus or CAD. Patient was seen in emergency room secondary to chest discomfort that was progressive in nature starting 1 week prior to admission substernal lasting 1 minute radiating to the right shoulder. This usually with exertion, patient has more significant pain that comes on a daily basis now, and lasting 5 minutes during his last episode at [facility] on the day of admission. Patient was subsequently seen in the emergency room with consultation to cardiology secondary to unstable angina. Ex Imaging studies in the ER include sinus rhythm with first-degree AV block, subsequent EKG shows severe depression lateral leads, d-dimer 0.43, troponin was 0.02 0.076 .081 .057 patient was subsequently seen by cardiology, Nitropaste was applied, Lopressor 25 mg twice a day aspirin, cardiac cath was performed today 02/15/2018 requiring 2 stents in the LAD. echocardiogram requested currently pending, other laboratories include creatinine 1.33, random blood sugar of 167 normal liver function test d-dimer normal 0.43 02/16: Patient is currently chest pain-free. He states he has been 8 with no lightheadedness or dizziness. He is continued on Lipitor, Lopressor, Proventil. Anticipate he will be ready for discharge tomorrow. Review of Systems Constitutional: Reports as per HPI, Denies anorexia, Denies chills, Denies chronic headaches, Denies chronic pain, Denies daytime sleepiness, Denies fatigue, Denies fever, Denies lethargy, Denies malaise, Denies night sweats, Denies poor appetite, Denies sweats, Denies weakness, Denies weight gain, Denies weight loss Ears, nose, mouth and throat: Reports as per HPI, Denies ant. neck pain, Denies bleeding gums, Denies dental pain, Denies dysphagia, Denies epistaxis, Denies headache, Denies hoarseness, Denies mouth pain, Denies nasal congestion, Denies nasal discharge, Denies neck fullness/pressure, Denies neck lump, Denies nose pain, Denies odynophagia, Denies post-nasal drip, Denies sinus pain, Denies sinus pressure, Denies swelling in mouth, Denies swelling in throat, Denies sore throat, Denies vertigo, Denies voice changes Cardiovascular: Reports as per HPI, Reports chest pain, Denies claudication, Denies decreased exercise tolerance, Denies dyspnea on exertion, Denies edema, Denies high blood pressure, Denies irregular heart beat, Denies leg edema, Denies lightheadedness, Denies orthopnea, Denies palpitations, Denies paroxysmal nocturnal dyspnea, Denies phlebitis, Denies rapid heart beat, Denies shortness of breath, Denies syncope Respiratory: Reports as per HPI, Denies congestion, Denies cough, Denies cough with sputum, Denies dyspnea, Denies excessive sputum, Denies hemoptysis, Denies home oxygen, Denies pain, Denies pain on inspiration, Denies pleurisy, Denies respiratory infections, Denies sleep apnea, Denies snoring, Denies wheezing Gastrointestinal: Reports as per HPI, Denies abdominal pain, Denies belching, Denies bloating, Denies BRBPR, Denies change in bowel habits, Denies coffee ground emesis, Denies constipation, Denies diarrhea, Denies dyspepsia, Denies early satiety, Denies excessive gas, Denies heartburn, Denies hematemesis, Denies hematochezia, Denies indigestion, Denies jaundice, Denies lactose intolerance, Denies loss of appetite, Denies melena, Denies nausea, Denies vomiting Genitourinary: Reports as per HPI Musculoskeletal: Reports as per HPI, Denies arm numbness/tingling, Denies atrophy, Denies fractures, Denies frequent falls, Denies gait dysfunction, Denies hot joints, Denies leg numbness/tingling, Denies limitation of motion, Denies loss of height, Denies low back pain, Denies morning stiffness, Denies muscle cramps, Denies muscle weakness, Denies myalgias, Denies neck pain, Denies neck stiffness, Denies prior amputations, Denies redness of joints, Denies shooting arm pain, Denies shooting leg pain Integumentary: Reports as per HPI Neurological: Reports as per HPI, Denies aphasia, Denies ataxia, Denies balance difficulties, Denies burning pain, Denies change in mentation, Denies change in smell/taste, Denies change in speech, Denies confusion, Denies convulsions, Denies double vision, Denies gait dysfunction, Denies head injury, Denies headaches, Denies hearing difficulties, Denies lack of coordination, Denies loss of vision, Denies memory loss, Denies migraines, Denies motor disturbance, Denies numbness, Denies paralysis, Denies paresthesias, Denies seizures, Denies sensory deficit, Endocrine: Reports as per HPI Hematologic/Lymphatic: Reports as per HPI Allergic/Immunologic: Reports as per HPI Objective - Vital Signs Vital signs: Vital Signs Temp 97.2 F L 02/16/18 12:00 Pulse 57 L 02/16/18 12:00 Resp 18 02/16/18 12:00 BP 132/72 02/16/18 12:00 Pulse Ox 96 02/16/18 12:00 Intake & Output 02/15/18 02/16/18 02/16/18 18:59 06:59 18:59 Intake Total 810.14 610 720 Output Total 800 Balance 10.14 610 720 Weight 88.5 kg 88.5 kg Intake: IV 570.14 610 Invasive Line 1 10 Sodium Chloride 0.9% 1, 600 000 ml @ 100 mls/hr IV . Q10H RAMY Rx#:[id number] Oral 240 720 Output: Urine 800 Other: # Voids 1 - Exam General appearance: cooperative, no acute distress, patient resting in bed with multiple family members at bedside. - EENT Eyes: anicteric sclerae, EOMI, PERRLA, dentition normal, poor dentition, normal appearance ENT: NA/AT - Neck Neck: no lymphadenopathy, normal ROM, no other, no rigidity, no stridor, no thyromegaly - Respiratory Respiratory: bilateral: CTA, negative: diminished, dullness, rales, rhonchi - Cardiovascular Rhythm: regular Heart sounds: normal: S1, S2 - Gastrointestinal General gastrointestinal: normal bowel sounds, soft - Integumentary Integumentary: normal, normal turgor - Neurologic Neurologic: CNII-XII intact - Musculoskeletal Musculoskeletal: gait normal, generalized weakness - Psychiatric Psychiatric: A&O x's 3, appropriate affect, intact judgment & insight - Labs CBC & Chem 7: 02/14/18 15:13 02/16/18 05:17 Labs: Abnormal Lab Results - Last 24 Hours (Table) 02/15/18 02/15/18 02/16/18 Range/Units 16:07 16:07 05:17 Chloride 110 H (98-107) mmol/L Hemoglobin A1c 6.2 H (4.0-6.0) % Troponin I 0.062 H* (0.000-0.034) ng/mL Assessment and Plan Plan: 1. Acute non-STEMI with mildly elevated troponin, requiring 2 cardiac stents in the LAD, cardiac cath performed 02/15/[address] VC randolph echocardiogram performed showing concentric LVH mild, EF 45-50%, basal inferior apical inferior wall hypokinesia, aortic valve trileaflet mild taken mild MR and mild TR. Right ventricular systolic pressure 29 pericardium is normal. Continue aspirin 81 mg daily, Lipitor 80 mg at bedtime, lisinopril, Lopressor 25 mg twice daily and Brilinta. 2. Impaired random blood sugars, Accu-Cheks to be done, hemoglobin A1c 6.2 3. Hypertension on Prinivil 10 mg, metoprolol has been added at 25 mg twice a day, 4. Hyperlipidemia new start Lipitor 80 mg 5. BPH without lower urinary tract symptomatology 6. Acute renal is insufficiency, against underlying CK D stage II or 3 GI prophylaxis Pepcid DVT prophylaxis Discharge plan: Home tomorrow Impression and plan of care have been directed as dictated by the signing physician. Leonora Dominguez nurse practitioner acting as scribe for signing physician.
[2018-02-16] MEDS ORDERED: ATORVASTATIN 80 MG TAB PO SCH (21:00)
[2018-02-17] MEDS: METOPROLOL TARTRATE 25 MG TAB PO SCH (07:59)
[2018-02-17] MEDS: MULTIVITAMINS, THERA 1 EACH TAB PO SCH (07:59)
[2018-02-17] MEDS: LISINOPRIL 10 MG TAB PO SCH (08:00)
[2018-02-17] MEDS: FAMOTIDINE 20 MG TAB PO SCH (08:00)
[2018-02-17] MEDS: TICAGRELOR 90 MG TAB PO SCH (08:00)
[2018-02-17] MEDS: FERROUS SULFATE 325 MG TAB PO SCH (08:00)
[2018-02-17] MEDS: ASPIRIN 81 MG PO SCH (08:00)
[2018-02-17 09:51] VITALS: RESP 18
[2018-02-17 12:36] VITALS: BP 136/85; PULSE 59; TEMP 97.8
--- NOTE | 2018-02-17 14:11 | P.PN ---
Subjective Progress Note Date: 02/17/18 Principal diagnosis: Non-STEMI This is a pleasant 73-year-old gentleman with known history of hypertension who presented to the hospital with a non-Q-wave myocardial infarction. He was taken to the cardiac labor trainer where he was found to have a heavily calcified LAD, other coronary arteries were also heavily calcified. Critical stenosis noted in the mid LAD for which patient underwent angioplasty and stent placement. Blood pressure this morning 132/80 with a heart rate in the 60s, 96% on room air. Sodium 138, potassium 4.5, BUN 16, creatinine 0.9. Patient feels well this morning denies any chest pain and breathing overall is stable. Echocardiogram with Doppler study revealed an ejection fraction of 45- 50%. 02/17/2018 Patient was seen and examined this morning, up ambulating in the hallway without any difficulty. Denied any chest pain and breathing was overall stable. Hemodynamically he was stable. Objective - Vital Signs Vital signs: Vital Signs Temp 97.8 F 02/17/18 12:00 Pulse 59 L 02/17/18 12:00 Resp 18 02/17/18 12:00 BP 136/85 02/17/18 12:00 Pulse Ox 97 02/17/18 12:00 Intake & Output 02/16/18 02/17/18 02/17/18 18:59 06:59 18:59 Intake Total 720 240 Output Total 0 Balance 720 0 240 Weight 88.5 kg 87.5 kg Intake: Oral 720 240 Output: Urine 0 Other: # Voids 2 0 1 - Exam PHYSICAL EXAMINATION: GENERAL: 73-year-old gentleman in no acute distress at the time of my examination HEENT: Head is atraumatic, normocephalic. Pupils equal, round. Sclera anicteric. Conjunctiva are clear. Mucous membranes of the mouth are moist. Neck is supple. There is no elevated jugular venous pressure. No carotid bruit is heard. HEART EXAMINATION: Heart S1, S2 normal. No murmur or gallop heard. CHEST EXAMINATION: Lungs are clear to auscultation and precussion. No chest wall tenderness is noted on palpation or with deep breathing. ABDOMEN: Soft, nontender. Bowel sounds are heard. No organomegaly noted. EXTREMITIES: 2+ peripheral pulses with no evidence of peripheral edema and no calf tenderness noted. Right radial site clean and dry, good distal pulse. NEUROLOGIC patient is awake, alert and oriented X3. . - Labs CBC & Chem 7: 02/14/18 15:13 02/16/18 05:17 Assessment and Plan Plan: Assessment and plan #1 non-Q-wave MA status post angioplasty and stenting of the LAD. #2 hypertension #3 hyperlipidemia Plan We will continue the patient on his current medications. He may be able to be discharged home today from cardiology's perspective, follow-up appointment with Dr. Del Angel in the office post discharge. DNP note has been reviewed, I agree with a documented findings and plan of care. Patient was seen and examined.
--- NOTE | 2018-02-17 15:41 | P.DS ---
Providers Date of admission: 02/15/18 13:22 Expected date of discharge: 02/17/18 Attending physician: Poonam Pierce Consults: 02/14/18 17:17 Consult Physician Urgent Consulting Provider: Jaison Saldivar Consult Reason/Comments: Chest pain Do you want consulting provider notified?: Yes 02/15/18 13:15 Consult Physician Routine Consulting Provider: [facility] Consult Reason/Comments: Post Interventional patient Do you want consulting provider notified?: Already Contacted Primary care physician: Niall Darrel [facility] Course: This is a 73-year-old gentleman patient of Dr. Rojo. He has underlying history of hypertension, hyperlipidemia,, CK D, BPH, with no known history of diabetes mellitus or CAD. Patient was seen in emergency room secondary to chest discomfort that was progressive in nature starting 1 week prior to admission substernal lasting 1 minute radiating to the right shoulder. This usually with exertion, patient has more significant pain that comes on a daily basis now, and lasting 5 minutes during his last episode at [facility] on the day of admission. Patient was subsequently seen in the emergency room with consultation to cardiology secondary to unstable angina. Ex Imaging studies in the ER include sinus rhythm with first-degree AV block, subsequent EKG shows severe depression lateral leads, d-dimer 0.43, troponin was 0.02 0.076 .081 .057 patient was subsequently seen by cardiology, Nitropaste was applied, Lopressor 25 mg twice a day aspirin, cardiac cath was performed today 02/15/2018 requiring 2 stents in the LAD. echocardiogram requested currently pending, other laboratories include creatinine 1.33, random blood sugar of 167 normal liver function test d-dimer normal 0.43. Patient is status post 2 cardiac stents in the LAD, cardiac cath performed 02/15/[address] VC randolph echocardiogram performed showing concentric LVH mild, EF 45-50%, basal inferior apical inferior wall hypokinesia, aortic valve trileaflet mild taken mild MR and mild TR. Right ventricular systolic pressure 29 pericardium is normal. 02/16: Patient is currently chest pain-free. He states he has been ambulating with no lightheadedness or dizziness. He is continued on Lipitor, Lopressor, Brilinta, aspirin. Anticipate he will be ready for discharge tomorrow. 02/17: Patient has been hemodynamically stable, blood pressure is stable, afebrile, pulse ox 96% on room air. Cardiology has cleared the patient for discharge. Patient will be discharged home today in stable condition. Discharge diagnoses: 1. Acute non-STEMI 2. Impaired random blood sugars, hemoglobin A1c 6.2 3. Hypertension 4. Hyperlipidemia 5. BPH 6. Acute renal is insufficiency, against underlying CK D stage II or 3 Discharge plan: Home Impression and plan of care have been directed as dictated by the signing physician. Leonora Dominguez nurse practitioner acting as scribe for signing physician. Patient Condition at Discharge: Good Plan - Discharge Summary Discharge Rx Participant: No New Discharge Prescriptions: New Atorvastatin [Lipitor] 80 mg PO HS #30 tab Famotidine [Pepcid] 20 mg PO BID #60 tab Metoprolol Tartrate [Lopressor] 25 mg PO BID #60 tab Nitroglycerin Sl Tabs [Nitrostat] 0.4 mg SUBLINGUAL Q5M PRN #25 tab PRN Reason: Chest Pain Ticagrelor [Brilinta] 90 mg PO BID #60 tab Continue Multivitamins, Thera [Multivitamin (formulary)] 1 tab PO DAILY Lisinopril [Prinivil] 10 mg PO DAILY Ferrous Sulfate [Iron] 325 mg PO DAILY Aspirin [Jerauld Aspirin EC] 81 mg PO DAILY Discharge Medication List Aspirin [Jerauld Aspirin EC] 81 mg PO DAILY 02/14/18 [History] Ferrous Sulfate [Iron] 325 mg PO DAILY 02/14/18 [History] Lisinopril [Prinivil] 10 mg PO DAILY 02/14/18 [History] Multivitamins, Thera [Multivitamin (formulary)] 1 tab PO DAILY 02/14/18 [History ] Atorvastatin [Lipitor] 80 mg PO HS #30 tab 02/17/18 [Rx] Famotidine [Pepcid] 20 mg PO BID #60 tab 02/17/18 [Rx] Metoprolol Tartrate [Lopressor] 25 mg PO BID #60 tab 02/17/18 [Rx] Nitroglycerin Sl Tabs [Nitrostat] 0.4 mg SUBLINGUAL Q5M PRN #25 tab 02/17/18 [Rx ] Ticagrelor [Brilinta] 90 mg PO BID #60 tab 02/17/18 [Rx] Follow up Appointment(s)/Referral(s): Anayeli Del Angel MD [STAFF PHYSICIAN] - 03/08/18 2:30 pm Niall Rojo MD [Primary Care Provider] - 03/04/18 10:30 am Patient Instructions/Handouts: Heart Healthy Diet (DC), Coronary Intravascular Stent Placement (DC), After Radial Heart Catheterization (GEN) Discharge Disposition: HOME SELF-CARE
== END 2018-02-17 13:31 | disposition home or self-care (01) | DRG 247 ==
LOC: EC 14:52 → 1SOBS 17:17 → 3SCARD 02-15 08:25 → OBSVTOIN 02-15 13:22
PROVIDERS: ADMIT Family Medicine; ATTEND Family Medicine
PROC: 027035Z Dilation of Coronary Artery, One Artery with Two Drug-eluting Intraluminal Devices, Percutaneous Approach (ICD-10-PCS; principal; 2018-02-15 11:30)
PROC: B2111ZZ Fluoroscopy of Multiple Coronary Arteries using Low Osmolar Contrast (ICD-10-PCS; 2018-02-15 11:30)
DX: I21.4 Non-ST elevation (NSTEMI) myocardial infarction (principal); N18.3 Chronic kidney disease, stage 3 (moderate); E78.5 Hyperlipidemia, unspecified; I25.84 Coronary atherosclerosis due to calcified coronary lesion; I25.110 Atherosclerotic heart disease of native coronary artery with unstable angina pectoris; I12.9 Hypertensive chronic kidney disease with stage 1 through stage 4 chronic kidney disease, or unspecified chronic kidney disease; N40.0 Benign prostatic hyperplasia without lower urinary tract symptoms; I44.0 Atrioventricular block, first degree; Z79.82 Long term (current) use of aspirin; Z79.899 Other long term (current) drug therapy
CPT/HCPCS: 36415; 71046; 80048; 80053; 80061; 82550; 82553; 83036; 83735; 83880; 84484; 85025; 85347; 85379; 85610; 85730; 93005; 93306; 93458; 96365; 99285; C1874

== ENCOUNTER → 2018-09-29 | Outpatient (CLI) | payer MEDICARE ==
[2018-09-29 16:12] LABS: African American GFR (CKD) >90 (>60 ml/min/1.73 sqM); Anion Gap 7 mmol/L; Blood Urea Nitrogen 12 mg/dL (9-20); Carbon Dioxide 24 mmol/L (22-30); Chloride 107 mmol/L (98-107); Non-African American GFR(CKD) 83 (>60 ml/min/1.73 sqM); Potassium 4.3 mmol/L (3.5-5.1); Sodium 138 mmol/L (137-145)
[2018-09-29 16:25] LABS: HCT 43.6 % (39.0-53.0); HGB 14.1 gm/dL (13.0-17.5); MCH 31.2 pg (25.0-35.0); MCHC 32.4 g/dL (31.0-37.0); MCV 96.2 fL (80.0-100.0); Mean Platelet Volume 9.7; Platelet Count 102 k/uL (150-450); RBC 4.53 m/uL (4.30-5.90); RDW 14.4 % (11.5-15.5); WBC 5.6 k/uL (3.8-10.6)
== END | disposition home or self-care (01) ==
LOC: LABPAT 15:31
PROVIDERS: ATTEND Internal Medicine Interventional Cardiology
DX: Z01.812 Encounter for preprocedural laboratory examination (principal); I25.10 Atherosclerotic heart disease of native coronary artery without angina pectoris; I10 Essential (primary) hypertension
CPT/HCPCS: 36415; 80051; 82565; 84520; 85027

== ENCOUNTER 2018-10-04 06:19 | Day surgery (SDC) | payer MEDICARE ==
[2018-09-30 11:45] VITALS: BMI 23.1
[2018-10-04] MEDS ORDERED: ALPRAZolam 0.25 MG TAB PO PRN (06:32)
[2018-10-04] MEDS ORDERED: NITROGLYCERIN SL TABS 0.4 MG TAB SUBLINGUAL PRN ×2 (06:32→08:51)
[2018-10-04] MEDS ORDERED: ATORVASTATIN 80 MG TAB PO STA (06:32)
[2018-10-04] MEDS ORDERED: ASPIRIN 325 MG TAB PO STA (06:32)
[2018-10-04] MEDS ORDERED: ALPRAZolam 0.5 MG TAB PO PRN (06:32)
[2018-10-04] MEDS: SODIUM CHLORIDE 0.9% 1,000 ML in EMPTY BAG 1 BAG IV ONE ×2 (06:42→10:19)
[2018-10-04] MEDS ORDERED: fentaNYL (PF) 50 MCG/ML 2 ML AMP IV ONE (07:42)
[2018-10-04] MEDS ORDERED: LIDOCAINE 1% INJ 10MG/ML (20 ML MDV) SQ ONE (07:43)
[2018-10-04] MEDS ORDERED: VERAPAMIL SYRINGE (5 MG/10 ML) INTRAARTER ONE (07:46)
[2018-10-04] MEDS ORDERED: BIVALIRUDIN 250 MG in SODIUM CHLORIDE 0.9% 50 ML IV ONE (07:56)
[2018-10-04] MEDS ORDERED: BIVALIRUDIN BOLUS 250 MG/50 ML IV ONE (07:56)
[2018-10-04] MEDS ORDERED: IOPAMIDOL-370 125ML BTL INJ ONE (08:28)
[2018-10-04] MEDS ORDERED: IOPAMIDOL-370 100ML BTL INJ ONE (08:38)
[2018-10-04] MEDS ORDERED: RX INFO: IV CONTRAST WAS GIVEN 1 EACH MISC MISCELLANE PRN (08:51)
[2018-10-04] MEDS ORDERED: ATROPINE SULFATE 0.1 MG/ML 10ML SYRINGE IV PRN (08:51)
[2018-10-04] MEDS ORDERED: MAG HYDROX/AL HYDROX/SIMETH 30 ML CUP PO PRN (08:51)
[2018-10-04] MEDS ORDERED: ISOSORBIDE MONONITRATE ER 30 MG TAB.ER.24H PO SCH (09:00)
[2018-10-04] MEDS ORDERED: SODIUM CHLORIDE 0.9% 1,000 ML IV SCH (09:00)
[2018-10-04] MEDS ORDERED: MULTIVITAMINS, THERA 1 EACH TAB PO SCH ×2 (09:00→17:00)
[2018-10-04] MEDS ORDERED: FERROUS SULFATE 325 MG TAB PO SCH ×2 (09:00→17:00)
[2018-10-04] MEDS: FAMOTIDINE 20 MG TAB PO SCH ×2 (10:19→20:49)
[2018-10-04] MEDS: METOPROLOL TARTRATE 25 MG TAB PO SCH ×2 (10:19→20:49)
--- NOTE | 2018-10-04 11:33 | CC ---
CARDIAC CATHETERIZATION REPORT Mr. Childs is a 73-year-old male with known history of hypertension, hyperlipidemia, history of coronary artery disease, status post stenting of the LAD in January 2018, who presented with symptoms of chest discomfort with physical activity. In view of that, recommendation was made regarding cardiac catheterization. The procedure as well as the risks and the complication were discussed with the patient who is in full understanding and agreement. PROCEDURE: Patient was brought to labor relations teacher in the fasting semi-sedated state after receiving fentanyl and Benadryl and achieving moderate conscious sedated state. Using Xylocaine anesthesia in the Seldinger technique, a 6-[place] sheath was introduced in the right radial artery. Selective right and left coronary angiography was performed using 5- [place] 4 bend right Gabi and 3.5 bend left Gabi catheter. Multiple views of coronary artery including hemiaxial views obtained. Following that, angioplasty and stenting was performed. Following that, a 5-[place] tight pigtail catheter was re- introduced in the left ventricle and a 30-degree MARQUEZ view of the left ventricle was obtained. Following the catheter and sheaths were removed. Hemostasis was obtained with deployment of a TR band. There was no immediate complication. The patient was returned to his room in stable condition. Of note, the patient received intra-arterial verapamil. FINDINGS: FLUOROSCOPY: There is severe calcification involving the left anterior descending artery. LEFT MAIN: This is a short size vessel bifurcating into left circumflex, left anterior descending artery. Left main coronary artery has no evidence of high-grade stenosis. LEFT ANTERIOR DESCENDING ARTERY: This is a large-sized vessel reaching toward the apex with a wraparound apex segment, heavily calcified in the proximal mid segment proximally has a 30% to 40% plaque in the mid segment. After the takeoff of the diagonal branch, there is a 95% to 99% stenosis in the stented segment. The distal vessel has diffuse intimal disease of 60% in a heavily calcified in a heavily calcified segment. The rest of the vessel has no high-grade stenosis. LEFT CIRCUMFLEX: This is a nondominant vessel giving rise to 2 obtuse marginal branches. The first one is large in caliber. The second obtuse marginal branch is tortuous and has an area of stenosis of 60% to 70%. The rest of the vessel has no high- grade stenosis. RIGHT CORONARY ARTERY: This is a large dominant vessel bifurcating distally PDA and posterolateral segment and branches. The right coronary artery in mid segment has a 30% to 40% plaque. The rest of the vessel has no high-grade stenosis. LEFT VENTRICULOGRAM: Left ventriculogram is performed 30-degree MARQUEZ view and revealed normal left ventricular size and systolic function. Ejection fraction is 60%. There was no significant mitral regurgitation. HEMODYNAMICS: There was no gradient across the aortic valve. The left ventricular end- diastolic pressure was 14-16 mmHg. CONCLUSION: 1. In-stent restenosis of the mid left anterior descending artery. 2. Heavily calcified left anterior descending artery. 3. Moderate disease in the left circumflex second obtuse marginal branch and mild disease in the mid right coronary artery. 4. Normal left ventricular size and systolic function. RECOMMENDATION: In view of finding anatomy, I recommend proceeding with angioplasty and stenting of the left anterior descending artery. The procedure as well as the risks and complications were discussed with the patient who is in full understanding and agreement. MMODL / IJN: [id number] /
--- NOTE | 2018-10-04 11:48 | PTCA ---
PERCUTANEOUSTRANS CORORONARY ANGIOGRAPHY Mr. Childs is a 73-year-old male with a known history of coronary artery disease, status post stenting of the LAD in January 2018 who presented with symptoms of chest discomfort, underwent cardiac catheterization, was found to have critical stenosis involving the mid LAD. In view of that, recommendation was made regarding angioplasty and stenting. The procedure as well as the risks and the complications were discussed with the patient who is in full understanding and agreement. PROCEDURE: A 6-[place]ux[place]bourg[place] FL3.5 guiding catheter introduced in the system and attempt to advance a 0.014 balanced medium weight J-wire in the distal vessel were unsuccessful because of this tortuosity and calcification. At that point, the guiding catheter was removed and the wire was removed and a 6-[place] 4 bend left FL guiding catheter was introduced system and after cannulating the left main a 0.014 whisper J-wire was advanced and positioned distally and with the FineCross catheter that wire was exchanged to a Mailman that was positioned distally. Subsequently, the FineCross was removed and a 0.014 whisper J-wire was advanced next to the Mailman and positioned in a geronimo fashion. At that point, a 3.0 x 12 mm Trek balloon was advanced and one inflation in the lesion was done at 16 atmospheres. Following that the balloon was removed and a 3.25 x 12 mm Xience Ade stent was advanced, deployed and post dilated at 18 atmospheres. After the last inflation, after appropriate wait, the balloon and the guidewire were withdrawn back in the guiding catheter. Images were obtained, repeated. Those images reveal stable successful stenting. At that point, the guiding catheter, the balloon and the guidewire were removed and a left ventriculogram was performed. Following that, sheath was removed. Hemostasis was obtained with deployment of a TR band. There was no immediate complication. Patient was returned to his room in stable condition. Of note, the patient had no chest discomfort or significant EKG changes with the inflation. He received Angiomax per protocol. RESULTS: Successful stenting of the mid left anterior descending artery with reduction of stenosis from 95% to 0%. RECOMMENDATION: Patient will be continued on aspirin, Brilinta, and statin. The importance of dual antiplatelet treatment were discussed with the patient and his family and they are in full understanding and agreement. Duration of procedure is 57 minutes. MMODL / IJN: [id number] /
[2018-10-04 11:53] LABS: Glucose,Whole Blood 178 mg/dL (75-99)
[2018-10-04 17:19] LABS: Glucose,Whole Blood 115 mg/dL (75-99)
[2018-10-04 20:43] LABS: Glucose,Whole Blood 164 mg/dL (75-99)
[2018-10-04] MEDS ORDERED: ZOLPIDEM 5 MG TAB PO PRN (21:00)
[2018-10-04] MEDS ORDERED: TICAGRELOR 90 MG TAB PO SCH (21:00)
[2018-10-05 00:33] VITALS: RESP 16
[2018-10-05 04:20] VITALS: BP 144/87; PULSE 62; TEMP 97.8
[2018-10-05 06:05] LABS: Glucose,Whole Blood 110 mg/dL (75-99)
[2018-10-05 07:03] LABS: Calcium 9.4 mg/dL (8.4-10.2); Potassium 4.4 mmol/L (3.5-5.1)
--- NOTE | 2018-10-05 07:33 | PN ---
PROGRESS NOTE Mr. Childs is a 73-year-old male with known history of coronary artery disease who presented with symptoms of chest discomfort, underwent cardiac catheterization, was found to have in-stent restenosis in a mid calcified LAD and underwent stenting of that vessel. He is doing well this morning. He is ambulating without difficulty. Denying any chest pain. No dizziness. No palpitation. No nausea. He continues to be on aspirin once a day, Brilinta 90 mg twice a day, Lipitor 80 mg daily, Pepcid 20 mg daily, iron, isosorbide mononitrate 30 mg daily, metoprolol tartrate 25 mg twice a day. PHYSICAL EXAMINATION: Blood pressure running in the 120s to 140 with a heart rate in the 60s. LUNGS: Clear. HEART: Regular rate and rhythm, S1, S2. No S3 with a systolic murmur heard at the base, no diastolic murmur, no rub. ABDOMEN: Soft, nontender. Positive bowel sounds. EXTREMITIES: No edema, right radial pulse intact. LAB DATA: BUN and creatinine 15 and 1.05, potassium 4.4. EKG revealed no acute changes. IMPRESSION: 1. Status post stenting of the left anterior descending artery. 2. History of coronary artery disease. 3. Hypertension. 4. Hyperlipidemia. RECOMMENDATION: Patient will be discharged home today and followed as an outpatient in one week. Depending on his progress, further recommendation will be made. MMODL / IJN: [id number] /
[2018-10-05] MEDS ORDERED: ASPIRIN 81 MG PO SCH (09:00)
[2018-10-05] MEDS ORDERED: ATORVASTATIN 80 MG TAB PO SCH (21:00)
== END 2018-10-05 08:08 | disposition home or self-care (01) ==
LOC: CATHCVL 06:19 → 3SCARD 08:40 → CATHCVL 10-05 08:08
PROVIDERS: ATTEND Internal Medicine Interventional Cardiology
DX: I25.110 Atherosclerotic heart disease of native coronary artery with unstable angina pectoris (principal); T82.855A Stenosis of coronary artery stent, initial encounter; I25.84 Coronary atherosclerosis due to calcified coronary lesion; I77.1 Stricture of artery; I10 Essential (primary) hypertension; E78.2 Mixed hyperlipidemia; E78.00 Pure hypercholesterolemia, unspecified; Z82.49 Family history of ischemic heart disease and other diseases of the circulatory system; Z95.5 Presence of coronary angioplasty implant and graft; Z79.02 Long term (current) use of antithrombotics/antiplatelets; Z79.82 Long term (current) use of aspirin; Z79.899 Other long term (current) drug therapy
CPT/HCPCS: 93458; 80048; C1769 ×3; C1887 ×3; C1725; C1874; J2001; J3010; J0583; Q9967 ×2; C9600

== ENCOUNTER 2019-05-31 21:10 | Emergency (ER) | payer MEDICARE ==
--- NOTE | 2019-05-31 21:43 | ED ---
SOB HPI - General Chief Complaint: Shortness of Breath Stated Complaint: SOB,Vomiting Time Seen by Provider: 05/31/19 21:25 Source: patient, RN notes reviewed, old records reviewed Mode of arrival: wheelchair Limitations: no limitations - History of Present Illness Initial Comments: This is a 74-year-old male presents DF for evaluation patient Dese for evaluation regards to shortness of breath cough and he believes maybe fever more chills and fever no documented fever some history of heart disease and stents but no history of asthma COPD or smoking no diabetes history. No travel history or sick contacts patient is isolated is hospital 3 weeks known in or out known sick. No fevers no family members with similar illness MD Complaint: cough, anxiety -: hour(s) Severity: moderate Severity scale (1-10): 4 Quality: dull Consistency: now resolved Improves With: nothing Worsens With: nothing, exertion Known History Of: congestive heart failure Context: anxiety Associated Symptoms: chest pain Treatments Prior to Arrival: none - Related Data Home Medications Medication Instructions Recorded Confirmed Aspirin [[place] Aspirin EC] 81 mg PO DAILY 02/14/18 10/04/18 Ferrous Sulfate [Iron] 325 mg PO DAILY 02/14/18 09/30/18 Multivitamins, Thera [Multivitamin 1 tab PO DAILY 02/14/18 09/30/18 (formulary)] Isosorbide Mononitrate ER [Imdur] 30 mg PO DAILY 09/30/18 09/30/18 Previous Rx's Medication Instructions Recorded Atorvastatin [Lipitor] 80 mg PO HS #30 tab 02/17/18 Famotidine [Pepcid] 20 mg PO BID #60 tab 02/17/18 Metoprolol Tartrate [Lopressor] 25 mg PO BID #60 tab 02/17/18 Nitroglycerin Sl Tabs [Nitrostat] 0.4 mg SUBLINGUAL Q5M PRN #25 tab 02/17/18 Ticagrelor [Brilinta] 90 mg PO BID #60 tab 02/17/18 Allergies Allergy/AdvReac Type Severity Reaction Status Date / Time No Known Allergies Allergy Verified 05/31/19 21:21 Review of Systems ROS Statement: Those systems with pertinent positive or pertinent negative responses have been documented in the HPI. ROS Other: All systems not noted in ROS Statement are negative. Past Medical History Past Medical History: Hyperlipidemia, Hypertension, Myocardial Infarction ([place]) Additional Past Medical History / Comment(s): anemia Last Myocardial Infarction Date:: 2017 History of Any Multi-Drug Resistant Organisms: None Reported Past Surgical History: Heart Catheterization With Stent Additional Past Surgical History / Comment(s): ulcer, right hand surgery Past Anesthesia/Blood Transfusion Reactions: No Reported Reaction Date of Last Stent Placement:: 02/16 Past Psychological History: No Psychological Hx Reported Smoking Status: Never smoker Past Alcohol Use History: None Reported Past Drug Use History: None Reported - Past Family History Father History Unknown: Yes Mother History Unknown: Yes Brother(s) Family Medical History: Unable to Obtain Sister(s) History Unknown: Yes Daughter(s) History Unknown: Yes Son(s) History Unknown: Yes General Exam Limitations: no limitations General appearance: alert, in no apparent distress Head exam: Present: atraumatic, normocephalic, normal inspection Eye exam: Present: normal appearance, PERRL, EOMI. Absent: scleral icterus, conjunctival injection, periorbital swelling ENT exam: Present: normal exam, mucous membranes moist Neck exam: Present: normal inspection. Absent: tenderness, meningismus, lymphadenopathy Respiratory exam: Present: normal lung sounds bilaterally. Absent: respiratory distress, wheezes, rales, rhonchi, stridor Cardiovascular Exam: Present: regular rate, normal rhythm, normal heart sounds. Absent: systolic murmur, diastolic murmur, rubs, gallop, clicks GI/Abdominal exam: Present: soft, normal bowel sounds. Absent: distended, tenderness, guarding, rebound, rigid Extremities exam: Present: normal inspection, full ROM, normal capillary refill. Absent: tenderness, pedal edema, joint swelling, calf tenderness Back exam: Present: normal inspection Neurological exam: Present: alert, oriented X3, CN II-XII intact Psychiatric exam: Present: normal affect, normal mood Skin exam: Present: warm, dry, intact, normal color. Absent: rash Course Vital Signs 05/31/19 05/31/19 05/31/19 21:16 21:35 22:30 Temperature 98.3 F 98.8 F Pulse Rate 112 H 102 H 90 Respiratory 18 16 18 Rate Blood Pressure 104/68 107/74 102/66 O2 Sat by Pulse 97 92 L 96 Oximetry - Reevaluation(s) Reevaluation #1: 05/31/19 23:46 Medical records reviewed Reevaluation #2: 05/31/19 23:46 Spoke with patient, questions answered Medical Decision Making - Medical Decision Making 74 male DF for evaluation patient Dese for evaluation regards to some anxiety regarding possible virus exposure history of heart disease chest x-ray labwork is normal here in the ER patient feels well also is normal with no distress and with her pulse ox normal patient can be discharged home - Lab Data Result diagrams: 05/31/19 21:45 05/31/19 21:45 Lab Results 05/31/19 05/31/19 05/31/19 Range/Units 21:45 21:45 21:45 WBC 6.3 (3.8-10.6) k/uL RBC 4.47 (4.30-5.90) m/uL Hgb 13.9 (13.0-17.5) gm/dL Hct 41.8 (39.0-53.0) % MCV 93.5 (80.0-100.0) fL MCH 31.1 (25.0-35.0) pg MCHC 33.3 (31.0-37.0) g/dL RDW 12.6 (11.5-15.5) % Plt Count (150-450) k/uL Neutrophils % 84 % Lymphocytes % 11 % Monocytes % 2 % Eosinophils % 2 % Basophils % 0 % Neutrophils # 5.3 (1.3-7.7) k/uL Lymphocytes # 0.7 L (1.0-4.8) k/uL Monocytes # 0.1 (0-1.0) k/uL Eosinophils # 0.1 (0-0.7) k/uL Basophils # 0.0 (0-0.2) k/uL Manual Slide Review Performed PT 10.1 (9.0-12.0) sec INR 1.0 (<1.2) APTT 22.0 (22.0-30.0) sec Sodium 134 L (137-145) mmol/L Potassium 4.1 (3.5-5.1) mmol/L Chloride 104 (98-107) mmol/L Carbon Dioxide 20 L (22-30) mmol/L Anion Gap 10 mmol/L BUN 19 (9-20) mg/dL Creatinine 1.03 (0.66-1.25) mg/dL Est GFR (CKD-EPI)AfAm 84 (>60 ml/min/1.73 sqM) Est GFR (CKD-EPI)NonAf 73 (>60 ml/min/1.73 sqM) Glucose 138 H (74-99) mg/dL Calcium 9.8 (8.4-10.2) mg/dL Magnesium 1.5 L (1.6-2.3) mg/dL Total Bilirubin 1.1 (0.2-1.3) mg/dL AST 56 (17-59) U/L ALT 56 H (4-49) U/L Alkaline Phosphatase 102 (38-126) U/L Creatine Kinase 74 (55-170) U/L CK-MB (CK-2) (0.0-2.4) ng/mL Troponin I (0.000-0.034) ng/mL NT-Pro-B Natriuret Pep pg/mL Total Protein 6.7 (6.3-8.2) g/dL Albumin 3.9 (3.5-5.0) g/dL 05/31/19 05/31/19 Range/Units 21:45 21:45 WBC (3.8-10.6) k/uL RBC (4.30-5.90) m/uL Hgb (13.0-17.5) gm/dL Hct (39.0-53.0) % MCV (80.0-100.0) fL MCH (25.0-35.0) pg MCHC (31.0-37.0) g/dL RDW (11.5-15.5) % Plt Count (150-450) k/uL Neutrophils % % Lymphocytes % % Monocytes % % Eosinophils % % Basophils % % Neutrophils # (1.3-7.7) k/uL Lymphocytes # (1.0-4.8) k/uL Monocytes # (0-1.0) k/uL Eosinophils # (0-0.7) k/uL Basophils # (0-0.2) k/uL Manual Slide Review PT (9.0-12.0) sec INR (<1.2) APTT (22.0-30.0) sec Sodium (137-145) mmol/L Potassium (3.5-5.1) mmol/L Chloride (98-107) mmol/L Carbon Dioxide (22-30) mmol/L Anion Gap mmol/L BUN (9-20) mg/dL Creatinine (0.66-1.25) mg/dL Est GFR (CKD-EPI)AfAm (>60 ml/min/1.73 sqM) Est GFR (CKD-EPI)NonAf (>60 ml/min/1.73 sqM) Glucose (74-99) mg/dL Calcium (8.4-10.2) mg/dL Magnesium (1.6-2.3) mg/dL Total Bilirubin (0.2-1.3) mg/dL AST (17-59) U/L ALT (4-49) U/L Alkaline Phosphatase (38-126) U/L Creatine Kinase (55-170) U/L CK-MB (CK-2) 1.0 (0.0-2.4) ng/mL Troponin I <0.012 (0.000-0.034) ng/mL NT-Pro-B Natriuret Pep 299 pg/mL Total Protein (6.3-8.2) g/dL Albumin (3.5-5.0) g/dL - EKG Data -: EKG Interpreted by Me (EKG shows sinus rhythm rate of 100, pO2 40, QRS 80, QTC 417) - Radiology Data Radiology results: report reviewed (Chest x-ray is negative for significant acute disease), image reviewed Disposition Clinical Impression: Anxiety, Atelectasis, right Disposition: HOME SELF-CARE Condition: Good Instructions (If sedation given, give patient instructions): Atelectasis (ED) Is patient prescribed a controlled substance at d/c from ED?: No Referrals: Niall Rojo MD [Primary Care Provider] - 1-2 days
[2019-05-31] MEDS ORDERED: SODIUM CHLORIDE 0.9% 500 ML 500 ML IV STA (21:51)
[2019-05-31 22:11] LABS: Basophils % (A) 0 %; Eosinophils # (A) 0.1 k/uL (0-0.7); Eosinophils % (A) 2 %; HCT 41.8 % (39.0-53.0); HGB 13.9 gm/dL (13.0-17.5); Lymphocytes # (A) 0.7 k/uL (1.0-4.8); Lymphocytes % (A) 11 %; MCH 31.1 pg (25.0-35.0); MCHC 33.3 g/dL (31.0-37.0); MCV 93.5 fL (80.0-100.0); Mean Platelet Volume 11.2; Monocytes # (A) 0.1 k/uL (0-1.0); Monocytes % (A) 2 %; Neutrophils # (A) 5.3 k/uL (1.3-7.7); Neutrophils % (A) 84 %; RBC 4.47 m/uL (4.30-5.90); RDW 12.6 % (11.5-15.5); WBC 6.3 k/uL (3.8-10.6)
--- NOTE | 2019-05-31 22:13 | XR ---
EXAMINATION TYPE: XR chest 1V portable DATE OF EXAM: 05/31/2019 COMPARISON: 02/14/2018 HISTORY: Pain TECHNIQUE: Single view FINDINGS: There is small linear density at the lateral left lung base. The other lung armas are leonie r. Heart and mediastinum are within normal limits. There are no hilar masses. There are chest leads. Bony thorax is intact. IMPRESSION: Subsegmental atelectasis at the lateral left lung base is new compared to old exam. Roro l heart.
[2019-05-31 22:18] LABS: Albumin 3.9 g/dL (3.5-5.0); Calcium 9.8 mg/dL (8.4-10.2); Magnesium 1.5 mg/dL (1.6-2.3); Potassium 4.1 mmol/L (3.5-5.1); Total Bilirubin 1.1 mg/dL (0.2-1.3); Total Protein 6.7 g/dL (6.3-8.2)
[2019-05-31 22:30] LABS: Prothrombin Time 10.1 sec (9.0-12.0)
[2019-05-31 22:52] LABS: Troponin I <0.012 ng/mL (0.000-0.034)
[2019-05-31 22:56] VITALS: PULSE 90; RESP 18
[2019-06-01 00:23] VITALS: BP 109/58; TEMP 98.3
== END 2019-06-01 00:15 | disposition home or self-care (01) ==
LOC: EC 21:10
DX: J98.11 Atelectasis (principal); R50.9 Fever, unspecified; R06.02 Shortness of breath; F41.9 Anxiety disorder, unspecified; I25.2 Old myocardial infarction; Z79.899 Other long term (current) drug therapy; Z95.5 Presence of coronary angioplasty implant and graft
CPT/HCPCS: 36415; 71045; 80053; 82550; 82553; 83735; 83880; 84484; 85025; 85610; 85730; 93005; 96360; 99285

== ENCOUNTER → 2020-05-23 | Outpatient (CLI) | payer MEDICARE ==
[2020-05-24 05:06] LABS: African American GFR (CKD) 76.8 (60.0-200.0); Albumin 4.3 g/dL (3.80-4.90); Albumin/Globulin Ratio 2.15 (1.60-3.17); Anion Gap 12.1 mmol/L (4.00-12.00); BUN/Creat Ratio 13.64 Ratio (12.00-20.00); Calcium 9.7 mg/dL (8.7-10.3); Carbon Dioxide 21.9 mmol/L (21.6-31.8); Chol/HDL Ratio 2.36; LDL Cholesterol,Calculated 67.8 mg/dL (0.0-131.0); Non-African American GFR(CKD) 66.2 (60.0-200.0); Total Bilirubin 0.7 mg/dL (0.3-1.2); Total Protein 6.3 g/dL (6.2-8.2); VLDL Calculation 19.2 mg/dL (5.00-40.00)
== END | disposition home or self-care (01) ==
LOC: LABWHC1 10:39
PROVIDERS: ATTEND Nurse Practitioner Adult Health
DX: I10 Essential (primary) hypertension (principal); E78.2 Mixed hyperlipidemia
CPT/HCPCS: 36415; 80053; 80061

== ENCOUNTER → 2021-01-30 | Outpatient (CLI) | payer MEDICARE ==
[2021-01-30 15:57] LABS: ALT 32 U/L (10-49); AST 31 U/L (14-35); African American GFR (CKD) 85.6 (60.0-200.0); Albumin 3.9 g/dL (3.8-4.9); Albumin/Globulin Ratio 1.86 (1.60-3.17); Alkaline Phosphatase 85 U/L (41-126); Blood Urea Nitrogen 12.7 mg/dL (9.0-27.0); Calcium 9.3 mg/dL (8.7-10.3); Carbon Dioxide 24.2 mmol/L (20.0-27.5); Chloride 107 mmol/L (96-109); Globulin 2.1 g/dL (1.6-3.3); Glucose 125 mg/dL (70-110); Non-African American GFR(CKD) 73.8 (60.0-200.0); Potassium 4.9 mmol/L (3.5-5.5); Sodium 141 mmol/L (135-145)
== END | disposition home or self-care (01) ==
LOC: LABWHC1 08:12
PROVIDERS: ATTEND Internal Medicine Interventional Cardiology
DX: E78.2 Mixed hyperlipidemia (principal)
CPT/HCPCS: 36415; 80053; 80061

== ENCOUNTER 2021-08-29 11:51 | Inpatient (IN) | payer MEDICARE ==
[2021-08-29 12:15] LABS: Glucose,Whole Blood 82 mg/dL (70-110)
--- NOTE | 2021-08-29 12:27 | CT ---
EXAMINATION TYPE: CT brain wo con for TPA DATE OF EXAM: 08/29/2021 COMPARISON: None available HISTORY: cva CT DLP: 1147.2 mGycm Automated exposure control for dose reduction was used. TECHNIQUE: CT scan of the brain is performed without IV contrast administration. FINDINGS: Brain volume loss changes, likely age-related. Bilateral cerebral white matter hypodensities, likely representing chronic microvascular ischemic changes. Suspected tiny cerebellar and basal ganglia insurance healthcare representative anne infarcts. Scattered arterial atherosclerotic calcifications. No acute intracranial hemorrhage. No gross acute cortical infarct. No midline shift, herniation or ve ntriculomegaly. Unremarkable basal cisterns, sella and CP angles. No gross space-occupying lesion, vasogenic edema or mass effect. Unremarkable orbits. Mucosal thickening of the ethmoid air cells. Clear mastoid air cells. Unremarkab le calvarial bones. IMPRESSION: No acute intracranial hemorrhage or gross acute cortical infarct. A small acute or hyperacute infarct can't be excluded by this CT scan. Chronic changes as described above. Further MRI with DWI assessment can be considered if clinically required.
[2021-08-29 12:28] LABS: Basophils % (A) 1 %; Eosinophils # (A) 0.4 k/uL (0-0.7); Eosinophils % (A) 7 %; HCT 42.1 % (39.0-53.0); HGB 13.6 gm/dL (13.0-17.5); Lymphocytes # (A) 1.9 k/uL (1.0-4.8); Lymphocytes % (A) 31 %; MCH 30.6 pg (25.0-35.0); MCHC 32.2 g/dL (31.0-37.0); Mean Platelet Volume 10.5; Monocytes # (A) 0.4 k/uL (0-1.0); Monocytes % (A) 7 %; Neutrophils # (A) 3.1 k/uL (1.3-7.7); Neutrophils % (A) 51 %; Platelet Count 136 k/uL (150-450); RBC 4.43 m/uL (4.30-5.90); RDW 13.7 % (11.5-15.5); WBC 6.1 k/uL (3.8-10.6)
[2021-08-29 12:42] LABS: Calcium 9.6 mg/dL (8.4-10.2); Potassium 4.3 mmol/L (3.5-5.1); Total Bilirubin 0.7 mg/dL (0.2-1.3); Total Protein 6.8 g/dL (6.3-8.2)
[2021-08-29] MEDS ORDERED: Alteplase PER PHARMACY Stroke 1 EACH MISC MISCELLANE PRN (12:56)
[2021-08-29 12:59] LABS: INR 0.9 (<1.2); Partial Thromboplastin Time 24.1 sec (22.0-30.0); Prothrombin Time 10.4 sec (9.0-12.0)
[2021-08-29] MEDS ORDERED: ALTEPLASE BOLUS FOR STROKE 8 MG in EMPTY SYRINGE 1 SYR IV STA (13:00)
[2021-08-29] MEDS ORDERED: ALTEPLASE IV STA (13:00)
--- NOTE | 2021-08-29 13:01 | ED ---
Neuro HPI - General Chief Complaint: Neuro Symptoms/Deficit Stated Complaint: Stroke symptoms Time Seen by Provider: 08/29/21 12:03 Source: patient, family, RN notes reviewed Mode of arrival: EMS Limitations: no limitations - History of Present Illness Is the patient presenting with stroke symptoms?: Yes Last Known Well Date: 08/29/21 Last Known Well Time: 10:15 Initial Comments: 76-year-old male with no prior history of CVA or neurological problems who states he had the onset around 10:15 AM this morning of tingling to his right arm and possibly some slurred speech family did bring him in by private vehicle they believe there is some slight right facial asymmetry. Patient denies any loss of strength or movement to his right upper extremity or lower extremities. No headache no blurry vision. He questions the slurred speech consult. - Related Data Home Medications: Home Medications Medication Instructions Recorded Confirmed Aspirin [[place] Aspirin EC] 81 mg PO DAILY 02/14/18 08/29/21 Losartan [Cozaar] 50 mg PO DAILY 08/29/21 08/29/21 Previous Rx's Medication Instructions Recorded Atorvastatin [Lipitor] 80 mg PO HS #30 tab 02/17/18 Metoprolol Tartrate [Lopressor] 25 mg PO BID #60 tab 02/17/18 Nitroglycerin Sl Tabs [Nitrostat] 0.4 mg SUBLINGUAL Q5M PRN #25 tab 02/17/18 Allergies/Adverse Reactions: Allergies Allergy/AdvReac Type Severity Reaction Status Date / Time No Known Allergies Allergy Verified 08/29/21 12:56 Review of Systems ROS Statement: Those systems with pertinent positive or pertinent negative responses have been documented in the HPI. ROS Other: All systems not noted in ROS Statement are negative. General Exam - General Exam Comments Initial Comments: This is a well-developed well-nourished awake alert oriented 4 male Limitations: no limitations General appearance: alert, in no apparent distress Head exam: Present: atraumatic, normocephalic, normal inspection Eye exam: Present: normal appearance, PERRL, EOMI. Absent: scleral icterus, conjunctival injection, periorbital swelling ENT exam: Present: mucous membranes moist, other (Some slight flattening of the right nasolabial fold) Neck exam: Present: normal inspection, full ROM, other (No stridor JVD or bruits). Absent: tenderness, meningismus, lymphadenopathy Respiratory exam: Present: normal lung sounds bilaterally. Absent: respiratory distress, wheezes, rales, rhonchi, stridor Cardiovascular Exam: Present: regular rate, normal rhythm, normal heart sounds. Absent: systolic murmur, diastolic murmur, rubs, gallop, clicks GI/Abdominal exam: Present: soft, normal bowel sounds. Absent: distended, tenderness, guarding, rebound, rigid Extremities exam: Present: normal inspection, normal capillary refill, other (Patient does have good pushed cold and flexo operator strength on the upper extremities and lower extremities some evidence of ataxia the right upper extremity). Absent: tenderness, pedal edema, joint swelling, calf tenderness Back exam: Present: normal inspection Neurological exam: Present: alert, oriented X3, motor sensory deficit, other (As noted above) Psychiatric exam: Present: normal affect, normal mood Skin exam: Present: warm, dry, intact, normal color. Absent: rash Stroke MDM - Lab Data Result diagrams: 08/29/21 12:11 08/29/21 12:11 Lab Results 08/29/21 08/29/21 08/29/21 Range/Units 12:04 12:11 12:11 WBC 6.1 (3.8-10.6) k/uL RBC 4.43 (4.30-5.90) m/uL Hgb 13.6 (13.0-17.5) gm/dL Hct 42.1 (39.0-53.0) % MCV 95.0 (80.0-100.0) fL MCH 30.6 (25.0-35.0) pg MCHC 32.2 (31.0-37.0) g/dL RDW 13.7 (11.5-15.5) % Plt Count 136 L (150-450) k/uL MPV 10.5 Neutrophils % 51 % Lymphocytes % 31 % Monocytes % 7 % Eosinophils % 7 % Basophils % 1 % Neutrophils # 3.1 (1.3-7.7) k/uL Lymphocytes # 1.9 (1.0-4.8) k/uL Monocytes # 0.4 (0-1.0) k/uL Eosinophils # 0.4 (0-0.7) k/uL Basophils # 0.0 (0-0.2) k/uL PT 10.4 (9.0-12.0) sec INR 0.9 (<1.2) APTT 24.1 (22.0-30.0) sec Sodium (137-145) mmol/L Potassium (3.5-5.1) mmol/L Chloride (98-107) mmol/L Carbon Dioxide (22-30) mmol/L Anion Gap mmol/L BUN (9-20) mg/dL Creatinine (0.66-1.25) mg/dL Est GFR (CKD-EPI)AfAm (>60 ml/min/1.73 sqM) Est GFR (CKD-EPI)NonAf (>60 ml/min/1.73 sqM) Glucose (74-99) mg/dL POC Glucose (mg/dL) 82 (70-110) mg/dL POC Glu Photo Cartographer ID Flori Xiao Calcium (8.4-10.2) mg/dL Total Bilirubin (0.2-1.3) mg/dL AST (17-59) U/L ALT (4-49) U/L Alkaline Phosphatase (38-126) U/L Troponin I (0.000-0.034) ng/mL Total Protein (6.3-8.2) g/dL Albumin (3.5-5.0) g/dL 08/29/21 08/29/21 Range/Units 12:11 12:11 WBC (3.8-10.6) k/uL RBC (4.30-5.90) m/uL Hgb (13.0-17.5) gm/dL Hct (39.0-53.0) % MCV (80.0-100.0) fL MCH (25.0-35.0) pg MCHC (31.0-37.0) g/dL RDW (11.5-15.5) % Plt Count (150-450) k/uL MPV Neutrophils % % Lymphocytes % % Monocytes % % Eosinophils % % Basophils % % Neutrophils # (1.3-7.7) k/uL Lymphocytes # (1.0-4.8) k/uL Monocytes # (0-1.0) k/uL Eosinophils # (0-0.7) k/uL Basophils # (0-0.2) k/uL PT (9.0-12.0) sec INR (<1.2) APTT (22.0-30.0) sec Sodium 136 L (137-145) mmol/L Potassium 4.3 (3.5-5.1) mmol/L Chloride 107 (98-107) mmol/L Carbon Dioxide 22 (22-30) mmol/L Anion Gap 7 mmol/L BUN 17 (9-20) mg/dL Creatinine 1.02 (0.66-1.25) mg/dL Est GFR (CKD-EPI)AfAm 84 (>60 ml/min/1.73 sqM) Est GFR (CKD-EPI)NonAf 72 (>60 ml/min/1.73 sqM) Glucose 88 (74-99) mg/dL POC Glucose (mg/dL) (70-110) mg/dL POC Glu Photo Cartographer ID Calcium 9.6 (8.4-10.2) mg/dL Total Bilirubin 0.7 (0.2-1.3) mg/dL AST 42 (17-59) U/L ALT 31 (4-49) U/L Alkaline Phosphatase 94 (38-126) U/L Troponin I <0.012 (0.000-0.034) ng/mL Total Protein 6.8 (6.3-8.2) g/dL Albumin 4.0 (3.5-5.0) g/dL - NIH Stroke Scale 1a. Level of Consciousness: (0) alert 1b. LOC Questions: (0) answers correctly 1c. LOC Commands: (0) performs tasks correctly 2. Best Gaze: (0) normal 3. Visual: (0) no visual loss 4. Facial Palsy: (1) minor paralysis 5a. Motor Arm Left: (0) no drift 5b. Motor Arm Right: (0) no drift 6a. Motor Leg Left: (0) no drift 6b. Motor Leg Right: (0) no drift 7. Limb Ataxia: (1) present 1 limb 8. Sensory: (1) mild/moderate sensory loss 9. Best Language: (0) no aphasia 10. Dysarthria: (1) mild/moderate dysarthria 11. Extinction/Inattention: (0) no abnormality - Medical Decision Making Patient has presented with a stroke is seen no evidence that at 10:15 AM this morning. No prior history. No headache blurry vision no focal weakness but he did initially complain of numbness to the right arm there was some question of s ome speech impediment and upon arrival family thought he may have had some right facial droop the patient initially denied this. Later thought he may have some abnormality. Due to the question a code stroke was called not cold all complaints. CT with and without contrast showed no acute findings or is evidence of a partial occlusion of the carotid artery please see complete report. Patient was a candidate for TPA in this was ordered. There is some delay in giving it due to the patient having what appear to be a vasovagal episode with change in status. This did resolve relatively quickly and the patient did agree to go and with the TPA. I did discuss the case with Dr. Rojo and Dr. Krueger. Dr. Tommy Raines was in bowel with the neuro interventional group from [facility]. Patient is improving. On my last evaluation patient had resolution of the speech problem and apparent resolution of his facial asymmetry. - EKG Data -: EKG Interpreted by Me EKG shows normal: sinus rhythm (Sinus rhythm a 60. Interval 238 QRS duration 93 daily since QTC 384/385 evidence of first-degree AV block) Past Medical History Past Medical History: Hyperlipidemia, Hypertension, Myocardial Infarction ([place]) Additional Past Medical History / Comment(s): anemia Last Myocardial Infarction Date:: 2017 History of Any Multi-Drug Resistant Organisms: None Reported Past Surgical History: Heart Catheterization With Stent Additional Past Surgical History / Comment(s): ulcer, right hand surgery Past Anesthesia/Blood Transfusion Reactions: No Reported Reaction Date of Last Stent Placement:: 02/16 Past Psychological History: No Psychological Hx Reported Smoking Status: Never smoker Past Alcohol Use History: None Reported Past Drug Use History: None Reported - Past Family History Father History Unknown: Yes Mother History Unknown: Yes Brother(s) Family Medical History: Unable to Obtain Sister(s) History Unknown: Yes Daughter(s) History Unknown: Yes Son(s) History Unknown: Yes Course Vital Signs 08/29/21 08/29/21 08/29/21 12:20 13:23 13:32 Temperature 97.7 F Pulse Rate 60 59 L 59 L Respiratory 15 19 14 Rate Blood Pressure 152/107 100/75 107/68 O2 Sat by Pulse 98 94 L 95 Oximetry 08/29/21 08/29/21 13:47 14:01 Temperature Pulse Rate 56 L 60 Respiratory 19 18 Rate Blood Pressure 131/86 146/93 O2 Sat by Pulse 100 96 Oximetry - Reevaluation(s) Reevaluation #1: 08/29/21 13:01 Patient did score out an NIH of 4 he does have some ataxia to right upper extremity he is right-hand dominant. Reevaluation #2: 08/29/21 13:01 I did discuss the findings with patient and family members the initial plain brain CT negative for acute processes I did discuss the concept of alteplase with the patient family he would like to proceed with this. Reevaluation #3: 08/29/21 13:51 Patient was a TPA candidate after some delay secondary to question of slurred speech and also the patient did suffer what appear to be a vasovagal episode with hypotensive episode and some exacerbation of his symptoms. This did resolve after a short period time. I did reevaluate the patient patient actually now states he has some improvement in his speech and family members do agree with this. Reevaluation #4: 08/29/21 14:17 Evaluation the patient feels much improved his speech has cleared up he is flat nasolabial fold appears with improved per family members and the patient. Critical Care Time Critical Care Time: Yes Total Critical Care Time: 44 Critical Care Time: Critical care time includes initial presentation with history physical labs x- rays multiple re-evaluations the patient multiple discussions with patient family discussion with multiple physicians admission orders and documentation of the above Disposition Clinical Impression: Cerebrovascular accident (CVA) Disposition: ADMITTED IP TO THIS [facility] Condition: Stable Referrals: Niall Rojo MD [Primary Care Provider] - 1-2 days Decision Date: 08/29/21 Decision Time: 14:28
--- NOTE | 2021-08-29 13:29 | CT ---
EXAMINATION TYPE: CT angio head neck DATE OF EXAM: 08/29/2021 HISTORY: cva COMPARISON: Unenhanced brain CT performed earlier same day CT DLP: 523 mGycm. Automated Exposure Control for Dose Reduction was Utilized. TECHNIQUE: CTA scan of the head and neck is performed with IV Contrast, patient injected with 65cc m L of Isovue 370, axial images are obtained, coronal and sagittal reformatted images are reviewed. 3D reconstructed images are created on an independent workstation and reviewed. FINDINGS: Carotid/Vascular Structures: Mild stenosis of the origin of the right vertebral artery. Scattered art erial atherosclerotic calcifications and tortuosity. Atherosclerotic calcification of the bifurcation of the right common carotid artery with severe stenosis of the origin of the right external carotid artery. Mild stenosis of the origin of the right internal carotid artery. At least 50% stenosis of th e proximal portion of the left internal carotid artery by a partially calcified atheromatous plaque. No other significant arterial stenosis, occlusion, dissection or aneurysm. Patent major intracranial venous sinuses. Other: No intracranial abnormal enhancement. Mucosal thickening of the maxillary sinuses. Degenerativ e changes of the cervical spine. IMPRESSION: About 50% stenosis of the proximal portion of the left internal carotid artery. Other arterial athero sclerotic changes as described above. No arterial occlusion, dissection or aneurysm in the major neck or the intracranial arteries. Other findings as described above.
[2021-08-29] MEDS ORDERED: SODIUM CHLORIDE 0.9% 50 ML MINI-BAG IV ONE ×3 (13:56→15:31)
--- NOTE | 2021-08-29 14:29 | XR ---
EXAMINATION TYPE: XR chest 2V DATE OF EXAM: 08/29/2021 COMPARISON: 05/31/2019 HISTORY: Shortness of breath TECHNIQUE: Frontal and lateral views of the chest are obtained. FINDINGS: Scattered senescent parenchymal changes noted. Hyperinflation compatible with COPD. No evidence for infiltrate. No evidence for atelectasis. Heart size is stable. Mediastinal structures are stable and grossly unremarkable. No evidence for hilar prominence. Degenerative changes dorsal spine. IMPRESSION: 1. No evidence for acute pulmonary disease.
[2021-08-29] MEDS ORDERED: NITROGLYCERIN SL TABS 0.4 MG TAB SUBLINGUAL PRN (17:58)
[2021-08-29 18:04] LABS: Glucose,Whole Blood 117 mg/dL (70-110)
[2021-08-29] MEDS ORDERED: amLODIPine 5 MG TAB PO PRN (18:32)
[2021-08-29] MEDS: SODIUM CHLORIDE 0.9% 1,000 ML IV SCH (19:47)
[2021-08-29] MEDS: FAMOTIDINE 20 MG/2 ML VIAL IV SCH (20:00)
[2021-08-29] MEDS: METOPROLOL TARTRATE 25 MG TAB PO SCH (20:00)
[2021-08-29] MEDS: ATORVASTATIN 80 MG TAB PO SCH (20:00)
--- NOTE | 2021-08-29 21:40 | P.HPIM ---
History of Present Illness H&P Date: 08/29/21 HISTORY OF PRESENT ILLNESS 76-year-old male one of my office patient with known for long time with multiple medical problem known to have history of anemia with iron deficiency, history of hypertension, history of CAD post angioplasty and stent placement 3 years ago, history of hyper and severe gastroesophageal Flex syndrome with peptic ulcer disease post stomach surgery in the past the patient presented to the emergency department at [facility] today around 10:15 AM with tingling sensation his right arm with slurred speech and slight weakness in the right side along with asymmetry droopy face. Patient denies any loss of strength completely in the extremity denies any severe headache or blurred vision. He ended up coming to emergency department at [facility] where was seen and evaluated initial assessment with laboratory value came back to be negative, CT of the brain shows no acute intracranial hemorrhage or gross acute cortical infarct small acute or hyper acu te infarct cannot be excluded by the CAT scan. Patient was watch clinically demurs department shortly after decided to do TPA which was supported by a stroke team. Patient ended up being transferred to the intensive care unit hemodynamically was stable at the time continued to have tingling sensation and slight weakness with slurred speech and droopy face. Symptoms started improving some shortly after arriving to the intensive care unit but still have slight weakness in the right compared to the left. Vitals with a blood pressure initially was mildly elevated patient apparently has not use any of his blood pressure medication early otherwise not having any significant other abnormality. REVIEW OF SYSTEMS Constitutional: No fever, no chills, no night sweats. No weight change. No weakness, fatigue or lethargy. No daytime sleepiness. EENT: No headache. No blurred vision or double vision, no loss of vision. No loss of Hearing, no ringing in the ears, no dizziness. No nasal drainage or congestion. No epistaxis. No sore throat.positive droopy face. Lungs: No shortness of breath, cough, no sputum production. No wheezing. Cardiovascular: No chest pain, no lower extremity edema. No palpitations. No paroxysmal nocturnal dyspnea. No orthopnea. No lightheadedness or dizziness. No syncopal episodes. Abdominal: No abdominal pain. No nausea, vomiting. No diarrhea. No constipation. No bloody or tarry stools.. No loss of appetite. Genitourinary: No dysuria, increased frequency, urgency. No urinary retention. Musculoskeletal: No myalgias. No muscle weakness, no gait dysfunction, no frequent falls. No back pain. No neck pain. Integumentary: No wounds, no lesions. No rash or pruritus. No unusual bruising. No change in hair or nails. Neurologic: positive stroke with tingling sensation the right side weakness droopy face and slurred speech with typical sinus symptoms for left mid cerebral artery stroke. Psychiatric: No depression. No anxiety. No mood swings. Endocrine: No abnormal blood sugars. No weight change. No excessive sweating or thirst. No cold intolerance. 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 FAMILY HISTORY his mother dying 90 from CHF, his father in his 80s from pancreatitis. Patient had one sister who from aplastic anemia. Patient has 2 children daughter with breast cancer and son with hypertension. PHYSICAL EXAMINATION Gen: This is well-developed laying in bed no acute respiratory distress. HEENT: Head is atraumatic, normocephalic. Pupils equal, round. Sclerae is anicteric. positive asymmetry face with slight droopy face and the right side. NECK: Supple. No JVD. No lymphadenopathy. No thyromegaly. LUNGS: Clear to auscultation. No wheezes or rhonchi. No intercostal retractions. HEART: Regular rate and rhythm. No murmur. ABDOMEN: Soft. Bowel sounds are present. No masses. No tenderness. EXTREMITIES: No pedal edema. No calf tenderness. NEUROLOGICAL: Patient is awake, alert and oriented x3. Cranial nerves 2 through 12 show slight effect and cranial nerve VII on the right side, also patient had slight weakness in the right compared to the left with no flaccid sided this point, slight tingling sensation and numbness in the right side as well. 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 Patient be watch for any complication related TPA further testing and study including echo, might require transesophageal echocardiogram, heart monitor watch for any A. fib. Anticoagulation Plavix will be started probably by tomorrow along with baby aspirin. - Urgent hypertension: Patient was on losartan grams a day and be titrated up to 100 if needed and still on metoprolol tartrate 25 mg twice a day resume both medication at this point we will add amlodipine 5 mg for systolic blood pressure above 150 or diastolic above 88. - Atherosclerotic heart disease: Post angioplasty and stent placement from January 2018 for the mid LAD, still seeing cardiology regular basis has been on secondary prevention apparently was and see cardiology recently. - Chronic history of iron deficiency anemia with history of gastrectomy: Patient hemoglobin was 13.6 today with normal hematocrit but had mild thrombocytopenia with platelets of 1 56,000 should be bit careful with any type of heparin product. - Hyperlipidemia: Resume atorvastatin as before. - BPH: Watch patient for any urinary retention if need Flomax can be used. - Thrombocytopenia: With no sign and symptom of any pancytopenia this point continue conservative management only. - GI prophylaxis: Patient be on Pepcid. - DVT prophylaxis: Knee-high GLORIA hose and Venodyne boots will be used. CODE STATUS: Full code Patient will be admitted to the hospital for a minimum of 2 night stay. Past Medical History Past Medical History: Hyperlipidemia, Hypertension, Myocardial Infarction ([place]) Additional Past Medical History / Comment(s): anemia Last Myocardial Infarction Date:: 2017 History of Any Multi-Drug Resistant Organisms: None Reported Past Surgical History: Heart Catheterization With Stent Additional Past Surgical History / Comment(s): ulcer, right hand surgery Past Anesthesia/Blood Transfusion Reactions: No Reported Reaction Date of Last Stent Placement:: 02/16 Past Psychological History: No Psychological Hx Reported Smoking Status: Never smoker Past Alcohol Use History: None Reported Past Drug Use History: None Reported - Past Family History Father History Unknown: Yes Mother History Unknown: Yes Brother(s) Family Medical History: Unable to Obtain Sister(s) History Unknown: Yes Daughter(s) History Unknown: Yes Son(s) History Unknown: Yes Medications and Allergies Home Medications Medication Instructions Recorded Confirmed Type Aspirin [Woods Aspirin EC] 81 mg PO DAILY 02/14/18 08/29/21 History Atorvastatin [Lipitor] 80 mg PO HS #30 tab 02/17/18 08/29/21 Rx Metoprolol Tartrate [Lopressor] 25 mg PO BID #60 tab 02/17/18 08/29/21 Rx Nitroglycerin Sl Tabs [Nitrostat] 0.4 mg SUBLINGUAL Q5M PRN #25 tab 02/17/18 08/29/21 Rx Losartan [Cozaar] 50 mg PO DAILY 08/29/21 08/29/21 History Allergies Allergy/AdvReac Type Severity Reaction Status Date / Time No Known Allergies Allergy Verified 08/29/21 12:56 Physical Exam Vitals: Vital Signs Temp Pulse Resp BP Pulse Ox 08/29/21 17:17 55 L 14 157/92 97 08/29/21 15:48 58 L 16 149/91 97 08/29/21 15:00 64 15 128/97 98 08/29/21 14:45 61 17 141/91 97 08/29/21 14:30 56 L 13 160/95 98 08/29/21 14:15 60 14 140/91 97 08/29/21 14:01 60 18 146/93 96 08/29/21 13:47 56 L 19 131/86 100 08/29/21 13:32 59 L 14 107/68 95 08/29/21 13:23 59 L 19 100/75 94 L 08/29/21 12:20 97.7 F 60 15 152/107 98 Intake and Output 08/29/21 08/29/21 08/29/21 06:59 14:59 22:59 Other: Weight 87.543 kg Results CBC & Chem 7: 08/29/21 12:11 08/29/21 12:11 Labs: Abnormal Lab Results - Last 24 Hours (Table) 08/29/21 08/29/21 Range/Units 12:11 12:11 Plt Count 136 L (150-450) k/uL Sodium 136 L (137-145) mmol/L
[2021-08-30] MEDS: SODIUM CHLORIDE 0.9% 1,000 ML IV SCH ×2 (03:30→18:48)
[2021-08-30] MEDS ORDERED: NALOXONE 0.4 MG/ML 1 ML VIAL IV PRN (05:26)
[2021-08-30 06:27] LABS: African American GFR (CKD) >90 (>60 ml/min/1.73 sqM); Anion Gap 5 mmol/L; Blood Urea Nitrogen 14 mg/dL (9-20); Carbon Dioxide 23 mmol/L (22-30); Chloride 111 mmol/L (98-107); Glucose 109 mg/dL (74-99); Magnesium 1.8 mg/dL (1.6-2.3); Non-African American GFR(CKD) 86 (>60 ml/min/1.73 sqM); Sodium 139 mmol/L (137-145)
[2021-08-30 06:31] LABS: Basophils % (A) 1 %; Eosinophils # (A) 0.3 k/uL (0-0.7); Eosinophils % (A) 8 %; HCT 39.9 % (39.0-53.0); HGB 13.1 gm/dL (13.0-17.5); Lymphocytes # (A) 1.3 k/uL (1.0-4.8); Lymphocytes % (A) 33 %; MCH 30.9 pg (25.0-35.0); MCHC 32.8 g/dL (31.0-37.0); Monocytes # (A) 0.3 k/uL (0-1.0); Monocytes % (A) 7 %; Neutrophils % (A) 49 %; RBC 4.24 m/uL (4.30-5.90); WBC 4.1 k/uL (3.8-10.6)
[2021-08-30] MEDS ORDERED: Magnesium Replacement Protocol 1 EACH MISC MISCELLANE PRN (07:41)
--- NOTE | 2021-08-30 08:33 | P.CNPUL ---
History of Present Illness Consult date: 08/30/21 Chief complaint: acute CVA History of present illness: 76-year-old male patient, presented with acute strokelike symptoms. The patient presented to the emergency department having weakness on the right side of the body in addition to slurred speech and tingling in the right arm. He also had some right facial droop. No altered mentation. No headaches. CT of the brain was done in the emergency room that showed no acute CVA. CT angiogram showed a 50% carotid stenosis internal on the right. The patient was found to be a good candidate for TPA and this was administered with subsequent improvement in his symptoms and the patient got transferred to the intensive care unit for further monitoring. He is known to have coronary artery disease with previous coronary stenting, and he is also known to have hypertension and previous history of peptic ulcer disease. No previous history of CVA. No previous history of atrial fibrillation. He has chronic upper lipidemia and iron deficiency as comorbid conditions. Overnight, the patient did well. No specific complaints. Review of Systems All systems: negative Eyes: denies as per HPI, denies blurred vision, denies bulging eye, denies decreased vision, denies diplopia, denies discharge, denies dry eye, denies irritation, denies itching, denies pain, denies photophobia, denies loss of peripheral vision, denies loss of vision, denies tunnel vision/blind spots Ears: deny: decreased hearing, ear discharge, earache, tinnitus Ears, nose, mouth and throat: Reports as per HPI Breasts: absent: as per HPI, gynecomastia Cardiovascular: Reports as per HPI Respiratory: Reports as per HPI Gastrointestinal: Reports as per HPI Genitourinary: Reports as per HPI Musculoskeletal: Reports as per HPI Musculoskeletal: absent: ankle pain, ankle stiffness, ankle swelling, as per HPI, elbow pain, elbow stiffness, elbow swelling, foot pain, foot stiffness, foot swelling, hand pain, hand stiffness, hand swelling, hip pain, hip stiffness, hip swelling, knee pain, knee stiffness, knee swelling, shoulder emiliana n, shoulder stiffness, shoulder swelling, wrist pain, wrist stiffness, wrist swelling Integumentary: Reports as per HPI Neurological: Reports motor disturbance, Reports numbness, Reports weakness Psychiatric: Reports as per HPI Endocrine: Reports as per HPI Hematologic/Lymphatic: Reports as per HPI Allergic/Immunologic: Reports as per HPI Past Medical History Past Medical History: Coronary Artery Disease (CAD), Hyperlipidemia, Hypertension, Myocardial Infarction ([place]) Additional Past Medical History / Comment(s): anemia Last Myocardial Infarction Date:: 2017 History of Any Multi-Drug Resistant Organisms: None Reported Past Surgical History: Heart Catheterization With Stent Additional Past Surgical History / Comment(s): ulcer, right hand surgery Past Anesthesia/Blood Transfusion Reactions: No Reported Reaction Date of Last Stent Placement:: 02/16 Past Psychological History: No Psychological Hx Reported Smoking Status: Never smoker Past Alcohol Use History: None Reported Past Drug Use History: None Reported - Past Family History Father History Unknown: Yes Mother History Unknown: Yes Brother(s) Family Medical History: Unable to Obtain Sister(s) History Unknown: Yes Daughter(s) History Unknown: Yes Son(s) History Unknown: Yes Medications and Allergies Home Medications Medication Instructions Recorded Confirmed Type Aspirin [[place] Aspirin EC] 81 mg PO DAILY 02/14/18 08/29/21 History Atorvastatin [Lipitor] 80 mg PO HS #30 tab 02/17/18 08/29/21 Rx Metoprolol Tartrate [Lopressor] 25 mg PO BID #60 tab 02/17/18 08/29/21 Rx Nitroglycerin Sl Tabs [Nitrostat] 0.4 mg SUBLINGUAL Q5M PRN #25 tab 02/17/18 08/29/21 Rx Losartan [Cozaar] 50 mg PO DAILY 08/29/21 08/29/21 History Allergies Allergy/AdvReac Type Severity Reaction Status Date / Time No Known Allergies Allergy Verified 08/29/21 12:56 Physical Exam Vitals: Vital Signs Temp Pulse Resp BP Pulse Ox 08/30/21 07:00 68 11 L 131/82 93 L 08/30/21 06:00 51 L 16 99/76 93 L 08/30/21 05:00 52 L 17 124/81 93 L 08/30/21 04:00 97.7 F 56 L 8 L 130/84 93 L 08/30/21 03:00 54 L 17 131/82 95 08/30/21 02:00 58 L 12 121/80 94 L 08/30/21 01:00 54 L 9 L 139/91 94 L 08/30/21 00:00 98.0 F 62 26 H 156/86 93 L 08/29/21 23:03 56 L 15 138/81 95 08/29/21 23:00 55 L 19 138/81 97 08/29/21 22:00 64 29 H 166/116 93 L 08/29/21 21:00 68 71 H 162/97 93 L 08/29/21 20:00 97.7 F 75 11 L 153/100 94 L 08/29/21 19:41 97.7 F 64 16 162/97 94 L 08/29/21 19:00 97.7 F 57 L 12 173/134 96 08/29/21 18:35 97 08/29/21 17:17 55 L 14 157/92 97 08/29/21 15:48 58 L 16 149/91 97 08/29/21 15:00 64 15 128/97 98 08/29/21 14:45 61 17 141/91 97 08/29/21 14:30 56 L 13 160/95 98 08/29/21 14:15 60 14 140/91 97 08/29/21 14:01 60 18 146/93 96 08/29/21 13:47 56 L 19 131/86 100 08/29/21 13:32 59 L 14 107/68 95 08/29/21 13:23 59 L 19 100/75 94 L 08/29/21 12:20 97.7 F 60 15 152/107 98 Intake and Output 08/29/21 08/30/21 08/30/21 22:59 06:59 14:59 Intake Total 300 100 Output Total 0 0 Balance 0 300 100 Intake: IV 300 100 Sodium Chloride 0.9% 1, 300 100 000 ml @ 100 mls/hr IV . Q10H [facility] Rx#:[id number] Output: Urine 0 0 Other: Voiding Method Toilet # Voids 1 1 1 Weight 87.543 kg 90.2 kg Gen. appearance, the patient is calm and comfortable likely distress currently on room air oxygen The patient appeared well nourished and normally developed. Vital signs as documented. Head exam is unremarkable. No scleral icterus or corneal arcus noted. Neck is without jugular venous distension, thyromegaly, or carotid bruits. Carotid upstrokes are brisk bilaterally. Lungs are clear to auscultation and percussion. Cardiac exam reveals the PMI to be normally sized and situated. Rhythm is regular. First and second heart sounds normal. No murmurs, rubs or gallops. Abdominal exam reveals normal bowel sounds, no masses, no organomegaly and no aortic enlargement. Extremities are nonedematous and both femoral and pedal pulses are normal.Examination of the skin revealed no evidence of significant rashes, suspicious appearing nevi or other concerning lesions.Neurologically, the patient is awake and alert and the patient does not have any focal neurological deficit. Cranial nerves are essentially intact. Results - Laboratory Findings CBC and BMP: 08/30/21 05:36 08/30/21 05:36 PT/INR, D-dimer PT 10.4 sec (9.0-12.0) 08/29/21 12:11 INR 0.9 (<1.2) 08/29/21 12:11 Abnormal lab findings: Abnormal Labs 08/29/21 08/29/21 08/29/21 12:11 12:11 12:11 RBC Plt Count 136 L Sodium 136 L Chloride Glucose POC Glucose (mg/dL) Hemoglobin A1c 7.4 H 08/29/21 08/30/21 08/30/21 18:03 05:36 05:36 RBC 4.24 L Plt Count Sodium Chloride 111 H Glucose 109 H POC Glucose (mg/dL) 117 H Hemoglobin A1c Assessment and Plan Plan: Acute CVA with right facial droop, right arm weakness/numbness, acute onset, post TPA administration with subsequent clinical improvement. This morning, the patient is hemodynamically stable. No issues with hypertension and the cardiac rhythm is sinus. Motor function is improved considerably and the patient seems to be quite asymptomatic. Right carotid artery stenosis, 50% and a card artery based on assist angiogram Coronary artery disease with previous coronary stenting Hypertension Hyperlipidemia History of iron deficiency anemia History of peptic ulcer disease Plan Monitor neurologic function is post thrombolytic administration Repeat CAT scan of the brain 24 hours post TPA administration MRI of the brain Echocardiogram Lipid profile Lipitor 80 mg by mouth daily Degenerative metoprolol and losartan for now, outpatient medications IV fluids to KVO Bedside swallow evaluation and provide diet Neurologic consultation We'll continue to follow his follow-up
[2021-08-30 08:49] LABS: Chol/HDL Ratio 2.25 Ratio; LDL Cholesterol,Calculated 66.3 mg/dL (0.0-131.0); VLDL Calculation 13.64 mg/dL (5.00-40.00)
[2021-08-30] MEDS: METOPROLOL TARTRATE 25 MG TAB PO SCH ×2 (08:55→20:17)
[2021-08-30] MEDS: ASPIRIN 81 MG PO SCH (08:55)
[2021-08-30] MEDS: LOSARTAN 50 MG TAB PO SCH (08:55)
[2021-08-30] MEDS: MAGNESIUM SULFATE-D5W PMX 1 GM in DEXTROSE/WATER 1 100ML.BAG IVPB SCH ×2 (08:55→11:23)
[2021-08-30] MEDS: FAMOTIDINE 20 MG/2 ML VIAL IV SCH (08:56)
--- NOTE | 2021-08-30 09:56 | P.PN ---
Subjective Progress Note Date: 08/30/21 HISTORY OF PRESENT ILLNESS 76-year-old male one of my office patient with known for long time with multiple medical problem known to have history of anemia with iron deficiency, history of hypertension, history of CAD post angioplasty and stent placement 3 years ago, history of hyper and severe gastroesophageal Flex syndrome with peptic ulcer disease post stomach surgery in the past the patient presented to the emergency department at [facility] today around 10:15 AM with tingling sensation his right arm with slurred speech and slight weakness in the right side along with asy mmetry droopy face. Patient denies any loss of strength completely in the extremity denies any severe headache or blurred vision. He ended up coming to emergency department at [facility] where was seen and evaluated initial assessment with laboratory value came back to be negative, CT of the brain shows no acute intracranial hemorrhage or gross acute cortical infarct small acute or hyper acute infarct cannot be excluded by the CAT scan. Patient was watch clinically demurs department shortly after decided to do TPA which was supported by a stroke team. Patient ended up being transferred to the intensive care unit hemodynamically was stable at the time continued to have tingling sensation and slight weakness with slurred speech and droopy face. Symptoms started improving some shortly after arriving to the intensive care unit but still have slight weakness in the right compared to the left. Vitals with a blood pressure initially was mildly elevated patient apparently has not use any of his blood pressure medication early otherwise not having any significant other abnormality. 08/30: Patient is seen today in the ICU. He has been seen by intesivist and neurology. MRI of the brain is ordered for today. Patient states that the numbness in the right arm is gone but he still has some stiffness. There is only a very slight weakness on the right arm and minimal facial drooping. Spee ch is back to baseline. Lower extremities equal and strong. Patient will be seen by PT, OT ST today. Patient has been afebrile, heart rate 60, blood pressure 131/82, pulse ox 93% on room air. Tragus rate 68, cholesterol 144, LDL 66, HDL 64. CBC was unremarkable. Creatinine 0.86. REVIEW OF SYSTEMS Constitutional: No fever, no chills, no night sweats. No weight change. No weakness, fatigue or lethargy. No daytime sleepiness. EENT: No headache. No blurred vision or double vision, no loss of vision. No loss of Hearing, no ringing in the ears, no dizziness. No nasal drainage or congestion. No epistaxis. No sore throat.positive droopy face. Lungs: No shortness of breath, cough, no sputum production. No wheezing. Cardiovascular: No chest pain, no lower extremity edema. No palpitations. No paroxysmal nocturnal dyspnea. No orthopnea. No lightheadedness or dizziness. No syncopal episodes. Abdominal: No abdominal pain. No nausea, vomiting. No diarrhea. No constipation. No bloody or tarry stools.. No loss of appetite. Genitourinary: No dysuria, increased frequency, urgency. No urinary retention. Musculoskeletal: No myalgias. No muscle weakness, no gait dysfunction, no frequent falls. No back pain. No neck pain. Integumentary: No wounds, no lesions. No rash or pruritus. No unusual bruising. No change in hair or nails. Neurologic: Tingling right upper extremity resolved, slight facial droop, lower extremity strong and equal. Psychiatric: No depression. No anxiety. No mood swings. Endocrine: No abnormal blood sugars. No weight change. No excessive sweating or thirst. No cold intolerance. PHYSICAL EXAMINATION Gen: This is well-developed laying in bed no acute respiratory distress. HEENT: Head is atraumatic, normocephalic. Pupils equal, round. Sclerae is anicteric. positive asymmetry face with slight droopy face and the right side. NECK: Supple. No JVD. No lymphadenopathy. No thyromegaly. LUNGS: Clear to auscultation. No wheezes or rhonchi. No intercostal retractions. HEART: Regular rate and rhythm. No murmur. ABDOMEN: Soft. Bowel sounds are present. No masses. No tenderness. EXTREMITIES: No pedal edema. No calf tenderness. NEUROLOGICAL: Patient is awake, alert and oriented x3. 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 Patient be watch for any complication related TPA further testing and study including echo, might require transesophageal echocardiogram, heart monitor watch for any A. fib. Patient continued on aspirin 81 mg daily, Lipitor 80 mg daily. - Urgent hypertension: Patient continued on losartan 50 mg daily, Lopressor 25 mg twice daily, amlodipine added at 5 mg twice daily as needed with parameters, for systolic blood pressure above 150 or diastolic above 88. - Atherosclerotic heart disease: Post angioplasty and stent placement from January 2018 for the mid LAD, still seeing cardiology regular basis has been on secondary prevention apparently was and see cardiology recently. - Chronic history of iron deficiency anemia with history of gastrectomy: Patient hemoglobin was 13.6 today with normal hematocrit but had mild thrombocytopenia with platelets of 1 56,000 should be bit careful with any type of heparin product. - Hyperlipidemia: Resume atorvastatin as before. - BPH: Watch patient for any urinary retention if need Flomax can be used. - Thrombocytopenia: With no sign and symptom of any pancytopenia this point continue conservative management only. - GI prophylaxis: Patient be on Pepcid. - DVT prophylaxis: Knee-high GLORIA hose and Venodyne boots will be used. CODE STATUS: Full code DISCHARGE PLAN Most likely home on Thursday. PT, OT, speech therapies on consult Impression and plan of care have been directed as dictated by the signing physician. Leonora Dominguez nurse practitioner acting as scribe for signing physician. Objective - Vital Signs Vital signs: Vital Signs Temp 97.7 F 08/30/21 04:00 Pulse 51 L 08/30/21 06:00 Resp 16 08/30/21 06:00 BP 99/76 08/30/21 06:00 Pulse Ox 93 L 08/30/21 06:00 FiO2 Intake & Output 08/29/21 08/30/21 08/30/21 18:59 06:59 18:59 Intake Total 300 Output Total 0 Balance 300 Weight 87.543 kg 90.2 kg Intake: IV 300 Sodium Chloride 0.9% 1, 300 000 ml @ 100 mls/hr IV . Q10H [facility] Rx#:[id number] Output: Urine 0 Other: Voiding Method Toilet # Voids 1 1 - Labs CBC & Chem 7: 08/30/21 05:36 08/30/21 05:36 Labs: Abnormal Lab Results - Last 24 Hours (Table) 08/29/21 08/29/21 08/29/21 Range/Units 12:11 12:11 12:11 RBC (4.30-5.90) m/uL Plt Count 136 L (150-450) k/uL Sodium 136 L (137-145) mmol/L Chloride (98-107) mmol/L Glucose (74-99) mg/dL POC Glucose (mg/dL) (70-110) mg/dL Hemoglobin A1c 7.4 H (0.0-6.0) % 08/29/21 08/30/21 08/30/21 Range/Units 18:03 05:36 05:36 RBC 4.24 L (4.30-5.90) m/uL Plt Count (150-450) k/uL Sodium (137-145) mmol/L Chloride 111 H (98-107) mmol/L Glucose 109 H (74-99) mg/dL POC Glucose (mg/dL) 117 H (70-110) mg/dL Hemoglobin A1c (0.0-6.0) %
--- NOTE | 2021-08-30 10:01 | CA ---
Transthoracic Echo Report Name: Александр Childs Age: 76 Gender: M : 1945 Exam Date: 08/30/2021 07:51 Exam Location: [facility] Ht (in): 73 Wt (lb): 198 Ordering Physician: Jeni Krueger MD Attending/Referring Phys: Anayeli Del Angel MD ([id number]) Professor Of Art History Ellen Friedman RDCS Procedure CPT: Indications: acute CVA Cardiac Hx: Technical Quality: Good Contrast 1: Agitated Saline Total Dose (mL): 2 Contrast 2: Total Dose (mL): MEASUREMENTS (Male / Female) Normal Values 2D ECHO LV Diastolic Diameter PLAX 3.6 cm 4.2 - 5.9 / 3.9 - 5.3 cm LV Systolic Diameter PLAX 1.6 cm IVS Diastolic Thickness 1.1 cm 0.6 - 1.0 / 0.6 - 0.9 cm LVPW Diastolic Thickness 1.2 cm 0.6 - 1.0 / 0.6 - 0.9 cm LV Relative Wall Thickness 0.6 RV Internal Dim ED PLAX 2.6 cm M-MODE Aortic Root Diameter MM 3.8 cm LA Systolic Diameter MM 1.7 cm LA Ao Ratio MM 0.4 MV E Point Septal Separation 0.5 cm AV Cusp Separation MM 2.5 cm DOPPLER AV Peak Velocity 137.0 cm/s AV Peak Gradient 7.5 mmHg MV Area PHT 3.4 cm??? MR Peak Velocity 110.3 cm/s MR Peak Gradient 4.9 mmHg Mitral E Point Velocity 75.9 cm/s Mitral A Point Velocity 79.2 cm/s Mitral E to A Ratio 1.0 MV Deceleration Time 224.5 ms TR Peak Velocity 117.2 cm/s TR Peak Gradient 5.5 mmHg Right Ventricular Systolic Press 10.3 mmHg FINDINGS Left Ventricle Normal Left ventricular size, wall thickness, systolic function with no obvious regional wall motion abnormalities. Normal Left ventricular diastolic filling pattern. Left ventricular ejection fraction is estimated at 55-60 %. Right Ventricle The right ventricle is normal in size and function. Right Atrium The right atrium is normal in size. Bubble study to rule out shunt, but unable to determine based on image quality whether or not there is some crossing. Left Atrium The left atrium is normal in size. Mitral Valve Structurally normal mitral valve without significant stenosis or prolapse. There is trace mitral regurgitation. Aortic Valve Structurally normal aortic valve without significant sclerosis or stenosis. There is no aortic regurgitation. Tricuspid Valve Structurally normal tricuspid valve without significant stenosis. Pulmonary artery systolic pressure is normal. Trace tricuspid regurgitation. Pulmonic Valve Structurally normal pulmonic valve without significant stenosis. There is no pulmonic regurgitation. Pericardium Normal pericardium without effusion. Aorta Normal aortic root dimension. CONCLUSIONS Normal LV size and systolic function Technically difficult study, poor acoustic windows, unable to assess for an intra-atrial communication with a bubble study Previewed by: Dr. Elmer Butcher MD (Electronically Signed) Final Date: 30 August 2021 10:00
--- NOTE | 2021-08-30 13:06 | P.CNNES ---
History of Present Illness Consult date: 08/29/21 Requesting physician: Nav Clay Reason for Consult: CVA History of Present Illness: Patient is a 76-year-old right-handed male with history of CAD, hypertension, hyperlipidemia and arthritis, came to the hospital today at 11:51 AM for possible acute stroke. Patient states that he was in the car, on the way to work when at around 10:15 AM, when he turned the corner, and he noticed his right arm started tingling, and the right arm was not working right. He just turned around, went home and his brought him to the hospital. He did have right facial droop, speech was slurred slightly. He denied any headache, any leg issues problem with balance, visual symptoms or dizziness. Vital signs on arrival blood pressure 152/107, pulse is 60, temperature 97.7. Blood test shows normal CBC, PT/PTT, sodium 136 potassium 4.3, normal renal and hepatic panel, troponin negative. CT head revealed no acute intracranial hemorrhage across acute cortical infarct. Chronic changes. EKG shows sinus rhythm with first-degree AV block. Chest x-ray showed no evidence for acute pulmonary disease. Patient was evaluated by ED staff, and case discussed with neuro intervention Dr. Pelaez. Patient was considered a candidate for TPA and patient received TPA bolus dose 8 mg at 1:01 PM. At present patient states that he feels well now. His hip hurts but does not do. Still notices weakness and numbness of the right arm. Patient's home medications include aspirin 81 mg, Lipitor 80 mg, metoprolol 25 mg twice a day, nitroglycerin and losartan 50 mg. Patient states he has never smoked, does not drink alcohol, does not smoke any marijuana. He does take aspirin every day. Denies any history of strokes or TIA. His father was alcoholic, and mom of CAD and in her 90s. Review of Systems All 14 points of review systems reviewed, were unremarkable except as mentioned above in detail. Past Medical History Past Medical History: Hyperlipidemia, Hypertension, Myocardial Infarction (IA) Additional Past Medical History / Comment(s): anemia Last Myocardial Infarction Date:: 2017 History of Any Multi-Drug Resistant Organisms: None Reported Past Surgical History: Heart Catheterization With Stent Additional Past Surgical History / Comment(s): ulcer, right hand surgery Past Anesthesia/Blood Transfusion Reactions: No Reported Reaction Date of Last Stent Placement:: 02/16 Past Psychological History: No Psychological Hx Reported Smoking Status: Never smoker Past Alcohol Use History: None Reported Past Drug Use History: None Reported - Past Family History Father History Unknown: Yes Mother History Unknown: Yes Brother(s) Family Medical History: Unable to Obtain Sister(s) History Unknown: Yes Daughter(s) History Unknown: Yes Son(s) History Unknown: Yes Medications and Allergies Home Medications Medication Instructions Recorded Confirmed Type Aspirin [Braxton Aspirin EC] 81 mg PO DAILY 02/14/18 08/29/21 History Atorvastatin [Lipitor] 80 mg PO HS #30 tab 02/17/18 08/29/21 Rx Metoprolol Tartrate [Lopressor] 25 mg PO BID #60 tab 02/17/18 08/29/21 Rx Nitroglycerin Sl Tabs [Nitrostat] 0.4 mg SUBLINGUAL Q5M PRN #25 tab 02/17/18 08/29/21 Rx Losartan [Cozaar] 50 mg PO DAILY 08/29/21 08/29/21 History Allergies Allergy/AdvReac Type Severity Reaction Status Date / Time No Known Allergies Allergy Verified 08/29/21 12:56 Physical Examination - Vital Signs Vital Signs: Vital Signs Temp Pulse Resp BP Pulse Ox 08/29/21 15:48 58 L 16 149/91 97 08/29/21 15:00 64 15 128/97 98 08/29/21 14:45 61 17 141/91 97 08/29/21 14:30 56 L 13 160/95 98 08/29/21 14:15 60 14 140/91 97 08/29/21 14:01 60 18 146/93 96 08/29/21 13:47 56 L 19 131/86 100 08/29/21 13:32 59 L 14 107/68 95 08/29/21 13:23 59 L 19 100/75 94 L 08/29/21 12:20 97.7 F 60 15 152/107 98 Intake and Output 08/29/21 08/29/21 08/29/21 06:59 14:59 22:59 Other: Weight 87.543 kg Patient is a very pleasant, elderly male, in no acute distress. Patient is sitting comfortably in the recliner. Multiple family members are present. Patient is alert awake oriented to time place and person. Speech is mildly dysarthric and language functions are normal. Patient can name and repeat very well. Attention, concentration and fund of knowledge is adequate. On cranial examination, pupils are round and reacting to light, visual armas are full on confrontation with no neglect on double simultaneous stimulation, extraocular muscles are intact with no nystagmus. Patient has right facial weakness, central type. His tongue protrudes to the midline. Palatal elevation and sensation normal, hearing and shoulder shrug normal, facial sensation normal. Shoulder shrug normal. On muscle strength testing, there is right pronator drift, and groups down to 60. Muscle strength is normal in arms and legs distally and proximally, except research programmer and deltoids, which are both 5-on the right, normal on left. Bilateral lower extremities are normal. Deep tendon reflexes are symmetric and plantars are downgoing bilaterally. Sensory to touch produces tingling in the right arm (not the left arm), but sensations is equal in the legs and the face bilaterally. Cerebellar function showed moderate ataxia for [id number] testing on the right. Tone and bulk of muscles normal. Gait normal. On general examination, there is no carotid bruit or murmur, S1-S2 audible. Abdomen is soft nontender. No organomegaly, bowel sounds present. Chest is clear. Peripheral pulses are present. No edema. Results - Laboratory Findings CBC and BMP: 08/30/21 05:36 08/30/21 05:36 Abnormal Lab Findings: Abnormal Labs 08/29/21 08/29/21 12:11 12:11 Plt Count 136 L Sodium 136 L Assessment and Plan Assessment: * Acute ischemic stroke, with mild right facial brachial paresis and dysarthria. Patient's NIH stroke scale is 4. Patient is status post TPA. * Hypertension * Hyperlipidemia * CAD * Arthritis * BPH Plan: * Patient's symptoms are stable. Slightly improved. Still has right-sided deficits. NIH stroke scale remains at 4 at this time. * Post-TPA order set to follow. * Keep blood pressure <180/100. * MRI of the brain evaluate for an acute stroke. * No antiplatelets or anticoagulants for 24 hours post-TPA. * 2-D echo with bubble study rule out PFO. * CTA of head and neck revealed about 50% stenosis of the proximal portion of the left ICA. No arterial occlusion, dissection or aneurysm. * Fasting a.m. lipid panel, hemoglobin A1c * PT OT, speech therapy * DVT prophylaxis: SCDs. * Continue close neuro checks. * Neurology will follow. Thank you for the consult. Time with Patient: Greater than 30
--- NOTE | 2021-08-30 16:31 | MR ---
EXAMINATION TYPE: MR brain wo con DATE OF EXAM: 08/30/2021 COMPARISON: CT brain 08/29/2021 HISTORY: Acute CVA CONTRAST: Performed utilizing 0 mL intravenous Gadavist gadolinium contrast. TECHNIQUE: Multiplanar, multiecho imaging on a 3.0 Tasha magnet is performed through the brain. Fas t Protocol was utilized for claustrophobia. Study is performed within 24 hours of arrival to the [facility]. The craniovertebral junction is normal. The pituitary is normal. Diffusion-weighted imaging is performed. There is increased signal on diffusion-weighted imaging michel ng the cortex of the posterior parietal lobe. This extends into the subcortical region medially. Some additional cortical uptake is present within the left parietal lobe slightly more anterior. A small focus of cortical uptake is in the lower inferior left parietal lobe. Findings are compatible with ac farzad ischemic changes. Correlate with the patient's clinical symptoms. There is mild scattered uptake within the periventricular white matter which has a more chronic appea ismael. Ventricles and sulci are prominent for the patient age. IMPRESSIONS: 1. Focal increased uptake within the cortex of the left parietal lobe compatible with acute cortical infarcts. Correlate with the patient's symptoms. 2. Some underlying chronic periventricular white matter ischemic type changes are present with some a ge related atrophy.
[2021-08-30] MEDS: FAMOTIDINE 20 MG TAB PO SCH (20:17)
[2021-08-30] MEDS: ATORVASTATIN 80 MG TAB PO SCH (20:18)
[2021-08-30] MEDS: TICAGRELOR 90 MG TAB PO SCH (20:18)
--- NOTE | 2021-08-31 03:32 | P.PN ---
Subjective Progress Note Date: 08/30/21 Patient was seen for a follow-up patient's family members were present. Patient says that his right forearm has weird feeling like a tightness. Right arm is still weak not back to normal yet. Patient admits to having borderline diabetes for last 1 year. He used to take metformin, but 3 days ago he stopped taking metformin because of significant leg swelling. Denies any double vision, loss of vision. Objective - Vital Signs Vital signs: Vital Signs Temp 98.1 F 08/31/21 00:00 Pulse 56 L 08/31/21 03:00 Resp 18 08/31/21 03:00 BP 103/64 08/31/21 03:00 Pulse Ox 93 L 08/31/21 03:00 FiO2 Intake & Output 08/30/21 08/30/21 08/31/21 06:59 18:59 06:59 Intake Total 300 990 500 Output Total 0 0 Balance 300 990 500 Weight 90.2 kg Intake: IV 300 140 Sodium Chloride 0.9% 1, 300 140 000 ml @ 20 mls/hr IV . Q24H RAMY Rx#:[id number] Intake, IV Titration 200 Amount Magnesium Sulfate-D5w Pmx 200 1 gm In Dextrose/Water 1 100ml.bag @ 100 mls/hr IVPB Q1H RAMY Rx#: [id number] Oral 650 500 Output: Urine 0 0 Other: Voiding Method Toilet Toilet # Voids 1 1 0 - Exam Patient is alert and awake. Speech is very mildly dysarthric. No aphasia. Attention, concentration, fund of knowledge is adequate. Cranial nerves significant for mild right facial weakness, central type. Tongue protrudes the midline. Visual ramas are full. Extraocular muscles intact. Muscle strength, patient has right pronation, no drift. The strength is normal except right deltoid and right housing and residence life director which are both 5-rest of the strength is normal. Sensory to light touch produces tingling in the right forearm. Patient has ataxia for [id number]-[id number] testing on the right. No ataxia in the right lower extremity. - Labs CBC & Chem 7: 08/30/21 05:36 08/30/21 05:36 Labs: Abnormal Lab Results - Last 24 Hours (Table) 08/30/21 08/30/21 Range/Units 05:36 05:36 RBC 4.24 L (4.30-5.90) m/uL Chloride 111 H (98-107) mmol/L Glucose 109 H (74-99) mg/dL HDL Cholesterol 64.10 H (40.00-60.00) mg/dL Assessment and Plan Assessment: * Acute ischemic stroke, with mild right facial brachial paresis and dysarthria. Patient's NIH stroke scale is 4. Patient is status post TPA. * Hypertension * Hyperlipidemia * CAD * Arthritis * BPH Plan: * Patient's symptoms are stable. Slightly improved. Still has right-sided deficits. NIH stroke scale remains at 4 at this time. * MRI of the brain revealed increased signal on diffusion-weighted images along the cortex of the posterior parietal lobe, compatible with acute cortical infarcts. Some underlying chronic periventricular white matter ischemic change. I personally reviewed MRI agree with the findings. The stroke is clearly embolic. No significant carotid vascular disease noted. Therefore a cardiac source needs to be ruled out. * 2-D echo revealed normal left ventricular size and systolic function with EF 55-60%. Technically difficult study, poor acoustic window, unable to assess for an intra-atrial communication with a bubble study. Patient's stroke is clearly embolic in nature. We will consult cardiology for MAXINE. * Keep blood pressure <180/100. * Patient was taking aspirin 81 mg daily at home. Patient needs to be added for DAP. Patient says that he used to take Brilinta in the past and tolerated it well. We will resume Brilinta 90 mg twice a day, along with aspirin 81 mg daily. May consider switching to Plavix after one month. * CTA of head and neck revealed about 50% stenosis of the proximal portion of the left ICA. No arterial occlusion, dissection or aneurysm. * Fasting a.m. lipid panel with cholesterol 144, LDL 66, HDL 64 and trigl ycerides 68. Continue Lipitor 80 mg daily. * Hemoglobin A1c 7.4. Suggest optimize control of diabetes to target A1c <7.0 * PT OT, speech therapy * DVT prophylaxis: SCDs. * Continue close neuro checks. * Dr. Justus Lui Will resume neurology service in the morning.
[2021-08-31 07:16] LABS: Basophils % (A) 0 %; Eosinophils # (A) 0.4 k/uL (0-0.7); Eosinophils % (A) 8 %; HCT 40.4 % (39.0-53.0); HGB 13.1 gm/dL (13.0-17.5); Lymphocytes # (A) 1.3 k/uL (1.0-4.8); Lymphocytes % (A) 24 %; MCH 31.1 pg (25.0-35.0); MCHC 32.5 g/dL (31.0-37.0); MCV 95.6 fL (80.0-100.0); Mean Platelet Volume 9.5; Monocytes # (A) 0.3 k/uL (0-1.0); Monocytes % (A) 6 %; Neutrophils % (A) 58 %; Platelet Count 144 k/uL (150-450); RBC 4.23 m/uL (4.30-5.90); RDW 14.1 % (11.5-15.5); WBC 5.2 k/uL (3.8-10.6)
[2021-08-31 07:28] LABS: African American GFR (CKD) >90 (>60 ml/min/1.73 sqM); Anion Gap 5 mmol/L; Blood Urea Nitrogen 14 mg/dL (9-20); Carbon Dioxide 23 mmol/L (22-30); Chloride 111 mmol/L (98-107); Glucose 128 mg/dL (74-99); Magnesium 1.8 mg/dL (1.6-2.3); Non-African American GFR(CKD) 84 (>60 ml/min/1.73 sqM); Potassium 4.2 mmol/L (3.5-5.1); Sodium 139 mmol/L (137-145)
--- NOTE | 2021-08-31 07:53 | P.PN ---
Subjective Progress Note Date: 08/31/21 76-year-old male patient, presented with acute strokelike symptoms. The patient presented to the emergency department having weakness on the right side of the body in addition to slurred speech and tingling in the right arm. He also had some right facial droop. No altered mentation. No headaches. CT of the brain was done in the emergency room that showed no acute CVA. CT angiogram showed a 50% carotid stenosis internal on the right. The patient was found to be a good candidate for TPA and this was administered with subsequent improvement in his symptoms and the patient got transferred to the intensive care unit for further monitoring. He is known to have coronary artery disease with previous coronary stenting, and he is also known to have hypertension and previous history of peptic ulcer disease. No previous history of CVA. No previous history of atrial fibrillation. He has chronic upper lipidemia and iron deficiency as comorbid conditions. Overnight, the patient did well. No specific complaints. On 08/31/2021, I'm seeing this patient in a follow-up in the intensive care unit. He remains in intensive care unit for further monitoring. The patient underwent an MRI of the brain yesterday that showed increased uptake within the cortex of the left parietal lobe compatible with acute cortical infarct. There is also some chronic periventricular white matter disease. Otherwise, the patient is hemodynamically stable. Cardiac rhythm remains sinus. There is some residual weakness on the right upper extremity. Speech is normal. Comprehension is normal. No evidence of an expressive aphasia. White cell count is at 5.2 and hemoglobin of 13. Electrodes are all within normal limits. The patient's LDL cholesterol is at 66. For now, the patient is on aspirin 81 mg by mouth daily and is also some purulent 90 mg by mouth twice a day. Objective - Vital Signs Vital signs: Vital Signs Temp 98 F 08/31/21 04:00 Pulse 66 08/31/21 07:00 Resp 25 H 08/31/21 07:00 BP 166/94 08/31/21 07:00 Pulse Ox 94 L 08/31/21 07:00 FiO2 Intake & Output 08/30/21 08/31/21 08/31/21 18:59 06:59 18:59 Intake Total 990 500 Output Total 0 Balance 990 500 Weight 90.2 kg Intake: IV 140 Sodium Chloride 0.9% 1, 140 000 ml @ 20 mls/hr IV . Q24H RAMY Rx#:[id number] Intake, IV Titration 200 Amount Magnesium Sulfate-D5w Pmx 200 1 gm In Dextrose/Water 1 100ml.bag @ 100 mls/hr IVPB Q1H RAMY Rx#: [id number] Oral 650 500 Output: Urine 0 Other: Voiding Method Toilet Toilet # Voids 1 0 0 - Exam Gen. appearance, the patient is calm and comfortable likely distress currently on room air oxygen The patient appeared well nourished and normally developed. Vital signs as documented. Head exam is unremarkable. No scleral icterus or corneal arcus noted. Neck is without jugular venous distension, thyromegaly, or carotid bruits. Carotid upstrokes are brisk bilaterally. Lungs are clear to auscultation and percussion. Cardiac exam reveals the PMI to be normally sized and situated. Rhythm is regular. First and second heart sounds normal. No murmurs, rubs or gallops. Abdominal exam reveals normal bowel sounds, no masses, no organomegaly and no aortic enlargement. Extremities are nonedematous and both femoral and pedal pulses are normal.Examination of the skin revealed no evidence of significant rashes, suspicious appearing nevi or other concerning lesions.Neurologically, the patient is awake and alert and the patient does not have any focal neurological deficit. Cranial nerves are essentially intact. - Labs CBC & Chem 7: 08/31/21 06:42 08/31/21 06:42 Labs: Abnormal Lab Results - Last 24 Hours (Table) 08/30/21 08/31/21 08/31/21 Range/Units 05:36 06:42 06:42 RBC 4.23 L (4.30-5.90) m/uL Plt Count 144 L (150-450) k/uL Chloride 111 H (98-107) mmol/L Glucose 128 H (74-99) mg/dL HDL Cholesterol 64.10 H (40.00-60.00) mg/dL Assessment and Plan Plan: Acute CVA with right facial droop, right arm weakness/numbness, acute onset, post TPA administration with subsequent clinical improvement. This morning, the patient is hemodynamically stable. No issues with hypertension and the cardiac rhythm is sinus. Motor function is improved considerably and the patient seems to be quite asymptomatic. The patient has some minimal residual weakness on the right upper extremity. MRI of the brain showed some left parietal cortical infarcts. Right carotid artery stenosis, 50% and a internal carotid artery stenosis based on the CTA of the brain Coronary artery disease with previous coronary stenting Hypertension Hyperlipidemia History of iron deficiency anemia History of peptic ulcer disease Plan Monitor neurologic function MRI of the brain noted Echocardiogram was noted MAXINE ordered ma neurology Lipitor 80 mg by mouth daily Degenerative metoprolol and losartan for now, outpatient medications IV fluids to KVO We'll continue to follow his follow-up
[2021-08-31] MEDS ORDERED: MIDAZOLAM 1 MG/ML 5 ML VIAL IV STA (10:09)
[2021-08-31] MEDS ORDERED: fentaNYL (PF) 50 MCG/ML 2 ML AMP IVP PRN (10:09)
--- NOTE | 2021-08-31 10:45 | P.CRDCN ---
History of Present Illness Consult date: 08/31/21 History of present illness: History of Present Illness: The patient is a 76-year-old male with history of hypertension, hyperlipidemia and CAD who presented with evidence of CVA, received TPA with improvement in his symptoms. He has no prior similar symptoms. He is usually active physically without any difficulties. He underwent stenting of his LAD most recently in September 2018, he has a known history of calcified coronary arteries with moderate disease in the second OM and mild disease in the RCA with preserved systolic function. He has no history of arrhythmia or atrial fibrillation in the past. He is usually active physically without difficulties. He denies any dizziness or palpitations in the past. No syncope, no PND or orthopnea. He has no significant valvular disease. Since admission he has maintained sinus mechanism. His echocardiogram showed a preserved left ventricle size and systolic function with no significant valvular disease. His brain MRI showed focal increased uptake in the left parietal lobe compatible with acute cortical infarct. His CT angiogram showed 50% stenosis of the left internal carotid artery with no high-grade stenosis. He was started on dual antiplatelet treatment. Medications: Metoprolol 25 mg twice a day, losartan 50 mg daily, Lipitor 80 mg daily, aspirin 81 mg daily Review of Systems: Respiratory: No history of asthma, bronchitis or recent cough. GI: No nausea or vomiting . No history of peptic ulcer disease. No recent GI bleed. : No hematuria or dysuria. Nervous System: He has no history of seizure in the past and presented with the neurological symptoms on this admission. Physical Examination: 76-year-old male, alert and oriented no apparent distress ,Blood pressure 157/90, Heart rate 60 Head: Normocephalic. Eyes: Sclerae nonicteric. Neck: Good carotid upstroke, no bruit, no jugular venous distention. Lungs: Clear to auscultation. Heart: Regular rate and rhythm, S1-S2, no S3, no rub. Systolic ejection murmur. Abdomen: Soft nontender, positive bowel sounds no organomegaly. Extremities: No edema, intact distal pulses. Labs: BUN 14, creatinine 0.9, potassium 4.2, hemoglobin 13.1. Cholesterol 144, LDL 66. Echocardiogram normal systolic function with no significant valvular diseas e EKG: Sinus mechanism with no acute ST segment changes Impression: 1. Status post CVA and TPA treatment, resolved 2. History of CAD, stable 3. History of hypertension 4. History of hyperlipidemia Plan: 1. Patient has been started on dual antiplatelets treatment 2. We will proceed with MAXINE to rule out intracardiac thrombus or shunting 3. Increase losartan 4. Follow blood pressure 5. Depending on his progress further recommendations will be made. Thank you for this consult we will follow with you. Past Medical History Past Medical History: Hyperlipidemia, Hypertension, Myocardial Infarction (MA) Additional Past Medical History / Comment(s): anemia Last Myocardial Infarction Date:: 2017 History of Any Multi-Drug Resistant Organisms: None Reported Past Surgical History: Heart Catheterization With Stent Additional Past Surgical History / Comment(s): ulcer, right hand surgery Past Anesthesia/Blood Transfusion Reactions: No Reported Reaction Date of Last Stent Placement:: 02/16 Past Psychological History: No Psychological Hx Reported Smoking Status: Never smoker Past Alcohol Use History: None Reported Past Drug Use History: None Reported - Past Family History Father History Unknown: Yes Mother History Unknown: Yes Brother(s) Family Medical History: Unable to Obtain Sister(s) History Unknown: Yes Daughter(s) History Unknown: Yes Son(s) History Unknown: Yes Medications and Allergies Home Medications Medication Instructions Recorded Confirmed Type Aspirin [Badger Aspirin EC] 81 mg PO DAILY 02/14/18 08/29/21 History Atorvastatin [Lipitor] 80 mg PO HS #30 tab 02/17/18 08/29/21 Rx Metoprolol Tartrate [Lopressor] 25 mg PO BID #60 tab 02/17/18 08/29/21 Rx Nitroglycerin Sl Tabs [Nitrostat] 0.4 mg SUBLINGUAL Q5M PRN #25 tab 02/17/18 08/29/21 Rx Losartan [Cozaar] 50 mg PO DAILY 08/29/21 08/29/21 History Allergies Allergy/AdvReac Type Severity Reaction Status Date / Time No Known Allergies Allergy Verified 08/29/21 12:56 Physical Exam Vitals: Vital Signs Temp Pulse Resp BP Pulse Ox 08/31/21 10:00 66 20 157/90 95 08/31/21 09:45 67 62 H 164/104 95 08/31/21 09:00 98.4 F 68 75 H 151/87 95 08/31/21 08:00 67 21 166/94 94 L 08/31/21 07:00 66 25 H 166/94 94 L 08/31/21 06:00 56 L 18 111/69 95 08/31/21 05:00 56 L 16 124/71 95 08/31/21 04:00 98 F 17 94/61 94 L 08/31/21 03:00 56 L 18 103/64 93 L 08/31/21 02:00 64 24 144/91 96 08/31/21 01:00 54 L 15 122/68 96 08/31/21 00:00 98.1 F 57 L 18 118/85 95 08/30/21 23:00 58 L 19 137/76 94 L 08/30/21 22:00 62 19 150/86 94 L 08/30/21 21:00 77 22 152/105 93 L 08/30/21 20:00 98.2 F 60 15 134/87 96 08/30/21 19:00 60 21 141/96 94 L 08/30/21 18:00 68 26 H 152/88 96 08/30/21 17:00 66 23 152/88 93 L 08/30/21 16:00 97.6 F 58 L 14 167/100 94 L 08/30/21 15:00 58 L 22 130/94 95 08/30/21 14:30 63 16 130/94 95 08/30/21 14:00 59 L 16 130/94 93 L 08/30/21 13:30 65 26 H 94 L 08/30/21 12:30 130/94 08/30/21 12:00 98 F 67 12 164/98 08/30/21 11:30 55 L 16 164/98 97 08/30/21 11:00 24 141/89 95 Intake and Output 08/30/21 08/31/21 08/31/21 22:59 06:59 14:59 Intake Total 450 250 Output Total 0 0 Balance 450 250 0 Intake: Oral 450 250 Output: Urine 0 0 Other: Voiding Method Toilet Toilet Toilet # Voids 0 0 1 Weight 90.2 kg Results 08/31/21 06:42 08/31/21 06:42 CBC 08/31/21 Range/Units 06:42 WBC 5.2 (3.8-10.6) k/uL RBC 4.23 L (4.30-5.90) m/uL Hgb 13.1 (13.0-17.5) gm/dL Hct 40.4 (39.0-53.0) % Plt Count 144 L (150-450) k/uL Comprehensive Metabolic Panel 08/31/21 Range/Units 06:42 Sodium 139 (137-145) mmol/L Potassium 4.2 (3.5-5.1) mmol/L Chloride 111 H (98-107) mmol/L Carbon Dioxide 23 (22-30) mmol/L BUN 14 (9-20) mg/dL Creatinine 0.90 (0.66-1.25) mg/dL Glucose 128 H (74-99) mg/dL Calcium 9.0 (8.4-10.2) mg/dL Current Medications Generic Name Dose Route Start Last Admin Trade Name Freq PRN Reason Stop Dose Admin Amlodipine Besylate 5 mg 08/29/21 18:32 08/30/21 12:24 Amlodipine 5 Mg Tab PO 5 mg BID PRN Administration SBP >150, DBP >88 Aspirin 81 mg 08/30/21 09:00 08/30/21 08:55 Aspirin 81 Mg PO 81 mg DAILY RAMY Administration Atorvastatin Calcium 80 mg 08/29/21 21:00 08/30/21 20:18 Atorvastatin 80 Mg Tab PO 80 mg HS RAMY Administration Famotidine 20 mg 08/30/21 21:00 08/30/21 20:17 Famotidine 20 Mg Tab PO 20 mg BID RAMY Administration Fentanyl Citrate 50 mcg 08/31/21 10:09 08/31/21 10:20 Fentanyl (Pf) 50 Mcg/Ml 2 Ml Amp IVP 50 mcg Q4HR PRN Administration Severe Pain Heparin Sodium (Porcine) 5,000 unit 08/31/21 10:00 Heparin Sodium,Porcine/Pf 5,000 Unit/0.5 Ml Syringe SQ Q12HR RAMY Losartan Potassium 50 mg 08/30/21 09:00 08/30/21 08:55 Losartan 50 Mg Tab PO 50 mg DAILY RAMY Administration Metoprolol Tartrate 25 mg 08/29/21 21:00 08/30/21 20:17 Metoprolol Tartrate 25 Mg Tab PO 25 mg BID RAMY Administration Miscellaneous Information 1 each 08/30/21 07:41 Magnesium Replacement Protocol 1 Each Misc MISCELLANE DAILY PRN Per Protocol Protocol Naloxone HCl 0.2 mg 08/30/21 05:26 Naloxone 0.4 Mg/Ml 1 Ml Vial IV Q2M PRN Opioid Reversal Nitroglycerin 0.4 mg 08/29/21 17:58 Nitroglycerin Sl Tabs 0.4 Mg Tab SUBLINGUAL Q5M PRN Chest Pain Ticagrelor 90 mg 08/30/21 21:00 08/30/21 20:18 Ticagrelor 90 Mg Tab PO 90 mg BID RAMY Administration Intake and Output 08/30/21 08/31/21 08/31/21 22:59 06:59 14:59 Intake Total 450 250 Output Total 0 0 Balance 450 250 0 Intake: Oral 450 250 Output: Urine 0 0 Other: Voiding Method Toilet Toilet Toilet # Voids 0 0 1 Weight 90.2 kg 08/31/21 06:42 08/31/21 06:42
--- NOTE | 2021-08-31 10:47 | P.PCN ---
Date of Procedure: 08/31/21 Description of Procedure: Indication: Evaluation of intracardiac thrombus Procedure Description: After explaining the procedure to the patient, it's risk and complications, blood pressure, heart rate and O2 saturation were monitored. The throat was sprayed with Cetacaine. Patient received 2 mg intravenous Versed, 50 mcg intravenous fentanyl. The probe was introduced into the esophagus without difficulty. Images were obtained. Following that, the probe was removed. There was no immediate complication. Findings: Left atrial size is normal, left atrial appendage is normal. Left ventricular size and systolic function are normal. No pericardial effusion was noted. Aortic valve reveals mild fibrocalcific changes with preserved opening. Mitral valve appears to be normal, tricuspid valve is normal. Descending thoracic aorta appears to be normal. Contrast bubble study revealed shunting across the intra-atrial septum with Valsalva maneuver consistent with patent foramen ovale Doppler: Pulse wave and color Doppler were obtained, mild mitral and tricuspid regurgitation, no shunting by color Doppler study Conclusion: 1. Normal left ventricle size and systolic function 2. And mild mitral and tricuspid regurgitation 3. Patent foramen ovale with [id number] shunting with contrast bubble study 4. Normal appearance of the descending thoracic aorta 5. No pericardial effusion Duration of sedation 12 minutes.
[2021-08-31] MEDS ORDERED: BENZOCAINE SPRAY 1 CAN TOPICAL ONE (11:00)
--- NOTE | 2021-08-31 11:05 | P.PN ---
Subjective Progress Note Date: 08/31/21 I am seeing the patient for the first time during this admission. Please refer to Dr. Krueger's notes for further details. It seems the patient has acute CVA over left parietal region and received IV tpa for his stroke. He stated he is making improvement compared to his initial presentation but not back to baseline. It seems he has mild right facial droop and right hand weakness. Per nurse he is walking without any difficulty. Cardiology was consulted for MAXINE. Objective - Vital Signs Vital signs: Vital Signs Temp 98.4 F 08/31/21 09:00 Pulse 68 08/31/21 09:00 Resp 75 H 08/31/21 09:00 BP 151/87 08/31/21 09:00 Pulse Ox 95 08/31/21 09:00 FiO2 Intake & Output 08/30/21 08/31/21 08/31/21 18:59 06:59 18:59 Intake Total 990 500 Output Total 0 Balance 990 500 Weight 90.2 kg Intake: IV 140 Sodium Chloride 0.9% 1, 140 000 ml @ 20 mls/hr IV . Q24H RAMY Rx#:[id number] Intake, IV Titration 200 Amount Magnesium Sulfate-D5w Pmx 200 1 gm In Dextrose/Water 1 100ml.bag @ 100 mls/hr IVPB Q1H RAMY Rx#: [id number] Oral 650 500 Output: Urine 0 Other: Voiding Method Toilet Toilet # Voids 1 0 1 - Exam GENERAL: The patient is lying in bed and is not in acute distress. NEUROLOGICAL: Higher mental function: The patient is awake, alert, oriented to self, place and time. Patient is following commands. No aphasia and no neglect. Cranial nerves: The pupils are round, equal and reactive to light . Visual armas are full to confrontation throughout. Extraocular movement is intact no nystagmus is noted. Facial sensation is normal to touch throughout. The facial strength is right nasolabial flattening. No dysarthria is noted. Motor: The strength is right hand corporate paralegal is 4 to 4+, right distal forearm is 4+ to 5-. No drift noted. Otherwise 5 over 5 throughout. Normal tone and bulk. Sensation: Mild decrease over the right distal upper extremity. Otherwise normal throughout. - Labs CBC & Chem 7: 08/31/21 06:42 08/31/21 06:42 Labs: Abnormal Lab Results - Last 24 Hours (Table) 08/31/21 08/31/21 Range/Units 06:42 06:42 RBC 4.23 L (4.30-5.90) m/uL Plt Count 144 L (150-450) k/uL Chloride 111 H (98-107) mmol/L Glucose 128 H (74-99) mg/dL Assessment and Plan Assessment: * Acute ischemic stroke (left parietal region. Symptoms of mild right facial b rachial paresis, mild right hand weakness and numbness) Patient's NIH stroke scale is 4. Patient is status post TPA. Etiology of stroke is cryptogenic but seems embolic (unsure if artery to artery since has left ICA stenosis of 50% and unsure if prior to stroke was larger and broke off vs cardiembolic). * Left ICA carotid stenosis 50% per CTA. * DM (Current HbA1c is 7.4) * Hypertension * Hyperlipidemia * CAD * Arthritis * BPH Plan: * MRI of the brain revealed increased signal on diffusion-weighted images along the cortex of the posterior parietal lobe, compatible with acute cortical infarcts. Some underlying chronic periventricular white matter ischemic change. I personally reviewed MRI agree with the findings. The stroke is clearly embolic. No significant carotid vascular disease noted. Therefore a cardiac source needs to be ruled out. * 2-D echo revealed normal left ventricular size and systolic function with EF 55-60%. Technically difficult study, poor acoustic window, unable to assess for an intra-atrial communication with a bubble study. Patient's stroke is clearly embolic in nature. Cardiology is consulted by Dr. Krueger for AMXINE. * Recommend an event monitor for 30 days to monitor for any A-fib/flutter. * I ordered carotid duplex. * Patient was taking aspirin 81 mg daily at home. Patient says that he used to take Brilinta in the past and tolerated it well. We will resume Brilinta 90 mg twice a day, along with aspirin 81 mg daily. May consider switching to Plavix after one month. * CTA of head and neck revealed about 50% stenosis of the proximal portion of the left ICA. No arterial occlusion, dissection or aneurysm. * Fasting a.m. lipid panel with cholesterol 144, LDL 66, HDL 64 and triglycerides 68. Continue Lipitor 80 mg daily. * Hemoglobin A1c 7.4. Suggest optimize control of diabetes to target A1c <7.0 * PT OT, speech therapy are consulted * Continue close neuro checks. * Continue cardiac monitoring. * DVT prophylaxis: I started subq heparin 5000U every 12 hours.SCDs. * Will defer the rest of medical management to the primary team. * Upon discharge, recommend the patient to follow-up with a neurologist within 1-2 weeks. The plan is discussed with patient and his nurse. Justus Lui M.D. Neuro-Hospitalist. Time with Patient: Less than 30
[2021-08-31] MEDS: TICAGRELOR 90 MG TAB PO SCH ×2 (11:34→20:14)
[2021-08-31] MEDS: ASPIRIN 81 MG PO SCH (11:34)
[2021-08-31] MEDS: FAMOTIDINE 20 MG TAB PO SCH ×2 (11:35→20:14)
[2021-08-31] MEDS: LOSARTAN 50 MG TAB PO SCH (11:35)
[2021-08-31] MEDS: METOPROLOL TARTRATE 25 MG TAB PO SCH ×2 (11:35→20:14)
[2021-08-31] MEDS: HEPARIN SODIUM,PORCINE/PF 5,000 UNIT/0.5 ML SYRINGE SQ SCH ×2 (11:36→20:14)
[2021-08-31] MEDS: MAGNESIUM SULFATE-D5W PMX 1 GM in DEXTROSE/WATER 1 100ML.BAG IVPB SCH ×2 (11:37→12:38)
[2021-08-31 11:43] LABS: Chol/HDL Ratio 2.46 Ratio; LDL Cholesterol,Calculated 72.7 mg/dL (0.0-131.0); VLDL Calculation 17.54 mg/dL (5.00-40.00)
--- NOTE | 2021-08-31 12:49 | US ---
EXAMINATION TYPE: US carotid duplex BILAT DATE OF EXAM: 08/31/2021 COMPARISON: CTA 08/29/21 CLINICAL HISTORY: post CVA. CVA 08/29/21 EXAM MEASUREMENTS: RIGHT: Peak Systolic Velocity (PSV) cm/sec ----- Right CCA: 44.4 ----- Right ICA: 94.3 ----- Right ECA: 149.6 ICA/CCA ratio: 2.1 RIGHT: End Diastole cm/sec ----- Right CCA: 11.3 ----- Right ICA: 27.0 ----- Right ECA: 13.6 LEFT: Peak Systolic Velocity (PSV) cm/sec ----- Left CCA: 52.3 ----- Left ICA: 95.6 ----- Left ECA: 146.1 ICA/CCA ratio: 1.8 LEFT: End Diastole cm/sec ----- Left CCA: 13.9 ----- Left ICA: 34.8 ----- Left ECA: 9.1 VERTEBRALS (direction of flow): Right Vertebral: Antegrade Left Vertebral: Antegrade Rhythm: Normal Moderate amount of plaque seen in bilateral bulbs. IMPRESSION: 1. 50-69% stenosis of the right carotid bifurcation by ICA/CCA ratio. 2. Less than 50% stenosis of the left common bifurcation. Criteria for Assigning % of Stenosis / Diameter reduction (Estimation based on the indirect measurements of the internal carotid artery velocities (ICA PSV). 1. Normal (no stenosis)=ICA PSV < 125 cm/s: ratio < 2.0: ICA EDV<40 cm/s. 2. Less than 50% stenosis=ICA PSV < 125 cm/s: ratio < 2.0: ICA EDV<40 cm/s. 3. 50 to 69% stenosis=ICA PSV of 125 to 230 cm/s: ration 2.0 ? 4.0: ICA EDV 40-100 cm/s. 4. Greater than 70% stenosis to near occlusion= ICA PSV > 230 cm/s: ratio > 4.0: ICA EDV > 100 cm/s. 5. Near occlusion= ICA PSV velocities may be low or undetectable: variable ratio and ICA EDV. 6. Total occlusion=unable to detect flow.
--- NOTE | 2021-08-31 15:10 | P.PN ---
Subjective Progress Note Date: 08/31/21 HISTORY OF PRESENT ILLNESS 76-year-old male one of my office patient with known for long time with multiple medical problem known to have history of anemia with iron deficiency, history of hypertension, history of CAD post angioplasty and stent placement 3 years ago, history of hyper and severe gastroesophageal Flex syndrome with peptic ulcer disease post stomach surgery in the past the patient presented to the emergency department at [facility] today around 10:15 AM with tingling sensation his right arm with slurred speech and slight weakness in the right side along with as ymmetry droopy face. Patient denies any loss of strength completely in the extremity denies any severe headache or blurred vision. He ended up coming to emergency department at [facility] where was seen and evaluated initial assessment with laboratory value came back to be negative, CT of the brain shows no acute intracranial hemorrhage or gross acute cortical infarct small acute or hyper acute infarct cannot be excluded by the CAT scan. Patient was watch clinically demurs department shortly after decided to do TPA which was supported by a stroke team. Patient ended up being transferred to the intensive care unit hemodynamically was stable at the time continued to have tingling sensation and slight weakness with slurred speech and droopy face. Symptoms started improving some shortly after arriving to the intensive care unit but still have slight weakness in the right compared to the left. Vitals with a blood pressure initially was mildly elevated patient apparently has not use any of his blood pressure medication early otherwise not having any significant other abnormality. 08/30: Patient is seen today in the ICU. He has been seen by intesivist and neurology. MRI of the brain is ordered for today. Patient states that the numbness in the right arm is gone but he still has some stiffness. There is only a very slight weakness on the right arm and minimal facial drooping. Spe ech is back to baseline. Lower extremities equal and strong. Patient will be seen by PT, OT ST today. Patient has been afebrile, heart rate 60, blood pressure 131/82, pulse ox 93% on room air. Tragus rate 68, cholesterol 144, LDL 66, HDL 64. CBC was unremarkable. Creatinine 0.86. 08/31 patient is in ICU for overflow, MAXINE performed, showing small PFO, with right to left shunt, performed by Dr. Del Angel, , carotid Dopplers 50-69% stenosis right carotid bifurcation by the ICA /CCA ratio , less than 50% stenosis left common bifurcation, vertebral arteries are antegrade, neurology thinks this could be an embolic CVA presentation, with improvement on right upper extremity weakness, and right facial droop. Patient does not have any new or pre-existing right lower extremity or left upper and left lower extremity weakness. Patient's walking, without any difficulties, no aspiration noted dysphagia,. MRI of the brain, shows focal increased uptake within the cortex left parietal lobe, compat ible with acute cortical infarcts, in view of these findings, we are going to obtain on consult with vascular Dr. Carson, regarding right minimally occlusive, carotid occlusive disease. Further recommendations to follow from cardiology regarding the PFO with [id number] shunt. Neurology thinks, that he might do well with home therapies, patient's receiving PT OT, blood pressures vital signs are stable, laboratories are stable, with blood sugars 128, creatinine 0.9, platelets triglycerides 152, patient is on aspirin and probably into metoprolol and Lipitor 80 REVIEW OF SYSTEMS Constitutional: No fever, no chills, no night sweats. No weight change. No weakness, fatigue or lethargy. No daytime sleepiness. EENT: No headache. No blurred vision or double vision, no loss of vision. No loss of Hearing, no ringing in the ears, no dizziness. No nasal drainage or congestion. No epistaxis. No sore throat.positive droopy face. Lungs: No shortness of breath, cough, no sputum production. No wheezing. Cardiovascular: No chest pain, no lower extremity edema. No palpitations. No paroxysmal nocturnal dyspnea. No orthopnea. No lightheadedness or dizziness. No syncopal episodes. Abdominal: No abdominal pain. No nausea, vomiting. No diarrhea. No const ipation. No bloody or tarry stools.. No loss of appetite. Genitourinary: No dysuria, increased frequency, urgency. No urinary retention. Musculoskeletal: No myalgias. No muscle weakness, no gait dysfunction, no frequent falls. No back pain. No neck pain. Integumentary: No wounds, no lesions. No rash or pruritus. No unusual bruising. No change in hair or nails. Neurologic: Tingling right upper extremity resolved, slight facial droop, lower extremity strong and equal. Psychiatric: No depression. No anxiety. No mood swings. Endocrine: No abnormal blood sugars. No weight change. No excessive sweating or thirst. No cold intolerance. PHYSICAL EXAMINATION Gen: This is well-developed laying in bed no acute respiratory distress. HEENT: Head is atraumatic, normocephalic. Pupils equal, round. Sclerae is anicteric. positive asymmetry face with slight droopy face and the right side. NECK: Supple. No JVD. No lymphadenopathy. No thyromegaly. LUNGS: Clear to auscultation. No wheezes or rhonchi. No intercostal retractions. HEART: Regular rate and rhythm. No murmur. ABDOMEN: Soft. Bowel sounds are present. No masses. No tenderness. EXTREMITIES: No pedal edema. No calf tenderness. NEUROLOGICAL: Patient is awake, alert and oriented x3. 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 Patient be watch for any complication related TPA further testing and study including echo, might require transesophageal echocardiogram, heart monitor watch for any A. fib. Patient continued on aspirin 81 mg daily, Lipitor 80 mg daily. Right PFO with [id number] shunt, Dr. Del Angel performed MAXINE, 08/31/2021 management per cardiology, Minimal occlusive disease, right carotid artery, with 50-69%, with CVA affecting the left mid cerebral artery consult with Dr. Carson - Urgent hypertension: Patient continued on losartan 50 mg daily, Lopressor 25 mg twice daily, amlodipine newly added added at 5 mg twice daily as needed with parameters, for systolic blood pressure above 150 or diastolic above 88. - Atherosclerotic heart disease: Post angioplasty and stent placement from January 2018 for the mid LAD, still seeing cardiology regular basis has been on secondary prevention apparently was and see cardiology recently. - Chronic history of iron deficiency anemia with history of gastrectomy: Patient hemoglobin was 13.6 today with normal hematocrit but had mild thrombocytopenia with platelets of 1 56,000 should be bit careful with any type of heparin product. - Hyperlipidemia: Resume atorvastatin as before. - BPH: Watch patient for any urinary retention if need Flomax can be used. - Thrombocytopenia: With no sign and symptom of any pancytopenia this point continue conservative management only. - GI prophylaxis: Patient be on Pepcid. - DVT prophylaxis: Knee-high GLORIA hose and Venodyne boots will be used. CODE STATUS: Full code DISCHARGE PLAN Most likely home on Thursday. PT, OT, speech therapies on consult Impression and plan of care have been directed as dictated by the signing physician. Leonora Dominguez nurse practitioner acting as scribe for signing physician. Objective Laboratory Tests Range/Units 08/29/21 08/29/21 08/29/21 12:04 12:11 12:11 WBC (3.8-10.6) k/uL 6.1 RBC (4.30-5.90) m/uL 4.43 Hgb (13.0-17.5) gm/dL 13.6 Hct (39.0-53.0) % 42.1 MCV (80.0-100.0) fL 95.0 MCH (25.0-35.0) pg 30.6 MCHC (31.0-37.0) g/dL 32.2 RDW (11.5-15.5) % 13.7 Plt Count (150-450) k/uL 136 L MPV 10.5 Neutrophils % % 51 Lymphocytes % % 31 Monocytes % % 7 Eosinophils % % 7 Basophils % % 1 Neutrophils # (1.3-7.7) k/uL 3.1 Lymphocytes # (1.0-4.8) k/uL 1.9 Monocytes # (0-1.0) k/uL 0.4 Eosinophils # (0-0.7) k/uL 0.4 Basophils # (0-0.2) k/uL 0.0 Manual Slide Review PT (9.0-12.0) sec 10.4 INR (<1.2) 0.9 APTT (22.0-30.0) sec 24.1 Sodium (137-145) mmol/L Potassium (3.5-5.1) mmol/L Chloride (98-107) mmol/L Carbon Dioxide (22-30) mmol/L Anion Gap mmol/L BUN (9-20) mg/dL Creatinine (0.66-1.25) mg/dL Est GFR (CKD-EPI)AfAm (>60 ml/min/1.73 sqM) Est GFR (CKD-EPI)NonAf (>60 ml/min/1.73 sqM) Glucose (74-99) mg/dL POC Glucose (mg/dL) (70-110) mg/dL 82 POC Glu Chainstitch Hemmer [address] Glu mg/dL Hemoglobin A1c (0.0-6.0) % Calcium (8.4-10.2) mg/dL Magnesium (1.6-2.3) mg/dL Total Bilirubin (0.2-1.3) mg/dL AST (17-59) U/L ALT (4-49) U/L Alkaline Phosphatase (38-126) U/L Troponin I (0.000-0.034) ng/mL Total Protein (6.3-8.2) g/dL Albumin (3.5-5.0) g/dL Triglycerides (0.00-149.00) mg/dL Cholesterol (0.00-200.00) mg/dL LDL Cholesterol, Calc (0.0-131.0) mg/dL VLDL Cholesterol, Calc (5.00-40.00) mg/dL HDL Cholesterol (40.00-60.00) mg/dL Cholesterol/HDL Ratio Ratio Range/Units 08/29/21 08/29/21 08/29/21 12:11 12:11 12:11 WBC (3.8-10.6) k/uL RBC (4.30-5.90) m/uL Hgb (13.0-17.5) gm/dL Hct (39.0-53.0) % MCV (80.0-100.0) fL MCH (25.0-35.0) pg MCHC (31.0-37.0) g/dL RDW (11.5-15.5) % Plt Count (150-450) k/uL MPV Neutrophils % % Lymphocytes % % Monocytes % % Eosinophils % % Basophils % % Neutrophils # (1.3-7.7) k/uL Lymphocytes # (1.0-4.8) k/uL Monocytes # (0-1.0) k/uL Eosinophils # (0-0.7) k/uL Basophils # (0-0.2) k/uL Manual Slide Review PT (9.0-12.0) sec INR (<1.2) APTT (22.0-30.0) sec Sodium (137-145) mmol/L 136 L Potassium (3.5-5.1) mmol/L 4.3 Chloride (98-107) mmol/L 107 Carbon Dioxide (22-30) mmol/L 22 Anion Gap mmol/L 7 BUN (9-20) mg/dL 17 Creatinine (0.66-1.25) mg/dL 1.02 Est GFR (CKD-EPI)AfAm (>60 ml/min/1.73 sqM) 84 Est GFR (CKD-EPI)NonAf (>60 ml/min/1.73 sqM) 72 Glucose (74-99) mg/dL 88 POC Glucose (mg/dL) (70-110) mg/dL POC Glu Chainstitch Hemmer ID [address]imated [address] Glu mg/dL 166 Hemoglobin A1c (0.0-6.0) % 7.4 H Calcium (8.4-10.2) mg/dL 9.6 Magnesium (1.6-2.3) mg/dL Total Bilirubin (0.2-1.3) mg/dL 0.7 AST (17-59) U/L 42 ALT (4-49) U/L 31 Alkaline Phosphatase (38-126) U/L 94 Troponin I (0.000-0.034) ng/mL <0.012 Total Protein (6.3-8.2) g/dL 6.8 Albumin (3.5-5.0) g/dL 4.0 Triglycerides (0.00-149.00) mg/dL Cholesterol (0.00-200.00) mg/dL LDL Cholesterol, Calc (0.0-131.0) mg/dL VLDL Cholesterol, Calc (5.00-40.00) mg/dL HDL Cholesterol (40.00-60.00) mg/dL Cholesterol/HDL Ratio Ratio Range/Units 08/29/21 08/30/21 08/30/21 18:03 05:36 05:36 WBC (3.8-10.6) k/uL 4.1 RBC (4.30-5.90) m/uL 4.24 L Hgb (13.0-17.5) gm/dL 13.1 Hct (39.0-53.0) % 39.9 MCV (80.0-100.0) fL 94.0 MCH (25.0-35.0) pg 30.9 MCHC (31.0-37.0) g/dL 32.8 RDW (11.5-15.5) % 14.0 Plt Count (150-450) k/uL Not Reportable MPV 13.9 Neutrophils % % 49 Lymphocytes % % 33 Monocytes % % 7 Eosinophils % % 8 Basophils % % 1 Neutrophils # (1.3-7.7) k/uL 2.0 Lymphocytes # (1.0-4.8) k/uL 1.3 Monocytes # (0-1.0) k/uL 0.3 Eosinophils # (0-0.7) k/uL 0.3 Basophils # (0-0.2) k/uL 0.0 Manual Slide Review Performed PT (9.0-12.0) sec INR (<1.2) APTT (22.0-30.0) sec Sodium (137-145) mmol/L 139 Potassium (3.5-5.1) mmol/L 4.0 Chloride (98-107) mmol/L 111 H Carbon Dioxide (22-30) mmol/L 23 Anion Gap mmol/L 5 BUN (9-20) mg/dL 14 Creatinine (0.66-1.25) mg/dL 0.86 Est GFR (CKD-EPI)AfAm (>60 ml/min/1.73 sqM) >90 Est GFR (CKD-EPI)NonAf (>60 ml/min/1.73 sqM) 86 Glucose (74-99) mg/dL 109 H POC Glucose (mg/dL) (70-110) mg/dL 117 H POC Glu Chainstitch Hemmer ID Hero [address] Glu mg/dL Hemoglobin A1c (0.0-6.0) % Calcium (8.4-10.2) mg/dL 9.0 Magnesium (1.6-2.3) mg/dL 1.8 Total Bilirubin (0.2-1.3) mg/dL AST (17-59) U/L ALT (4-49) U/L Alkaline Phosphatase (38-126) U/L Troponin I (0.000-0.034) ng/mL Total Protein (6.3-8.2) g/dL Albumin (3.5-5.0) g/dL Triglycerides (0.00-149.00) mg/dL 68.20 Cholesterol (0.00-200.00) mg/dL 144.00 LDL Cholesterol, Calc (0.0-131.0) mg/dL 66.3 VLDL Cholesterol, Calc (5.00-40.00) mg/dL 13.64 HDL Cholesterol (40.00-60.00) mg/dL 64.10 H Cholesterol/HDL Ratio Ratio 2.25 Range/Units 08/31/21 08/31/21 06:42 06:42 WBC (3.8-10.6) k/uL 5.2 RBC (4.30-5.90) m/uL 4.23 L Hgb (13.0-17.5) gm/dL 13.1 Hct (39.0-53.0) % 40.4 MCV (80.0-100.0) fL 95.6 MCH (25.0-35.0) pg 31.1 MCHC (31.0-37.0) g/dL 32.5 RDW (11.5-15.5) % 14.1 Plt Count (150-450) k/uL 144 L MPV 9.5 Neutrophils % % 58 Lymphocytes % % 24 Monocytes % % 6 Eosinophils % % 8 Basophils % % 0 Neutrophils # (1.3-7.7) k/uL 3.0 Lymphocytes # (1.0-4.8) k/uL 1.3 Monocytes # (0-1.0) k/uL 0.3 Eosinophils # (0-0.7) k/uL 0.4 Basophils # (0-0.2) k/uL 0.0 Manual Slide Review PT (9.0-12.0) sec INR (<1.2) APTT (22.0-30.0) sec Sodium (137-145) mmol/L 139 Potassium (3.5-5.1) mmol/L 4.2 Chloride (98-107) mmol/L 111 H Carbon Dioxide (22-30) mmol/L 23 Anion Gap mmol/L 5 BUN (9-20) mg/dL 14 Creatinine (0.66-1.25) mg/dL 0.90 Est GFR (CKD-EPI)AfAm (>60 ml/min/1.73 sqM) >90 Est GFR (CKD-EPI)NonAf (>60 ml/min/1.73 sqM) 84 Glucose (74-99) mg/dL 128 H POC Glucose (mg/dL) (70-110) mg/dL POC Glu Chainstitch Hemmer ID Estimated Ave Glu mg/dL Hemoglobin A1c (0.0-6.0) % Calcium (8.4-10.2) mg/dL 9.0 Magnesium (1.6-2.3) mg/dL 1.8 Total Bilirubin (0.2-1.3) mg/dL AST (17-59) U/L ALT (4-49) U/L Alkaline Phosphatase (38-126) U/L Troponin I (0.000-0.034) ng/mL Total Protein (6.3-8.2) g/dL Albumin (3.5-5.0) g/dL Triglycerides (0.00-149.00) mg/dL 87.70 Cholesterol (0.00-200.00) mg/dL 152.00 LDL Cholesterol, Calc (0.0-131.0) mg/dL 72.7 VLDL Cholesterol, Calc (5.00-40.00) mg/dL 17.54 HDL Cholesterol (40.00-60.00) mg/dL 61.80 H Cholesterol/HDL Ratio Ratio 2.46 Active Medications Amlodipine Besylate (Amlodipine 5 Mg Tab) 5 mg PO BID PRN PRN Reason: SBP >150, DBP >88 Last Admin: 08/30/21 12:24 Dose: 5 mg Aspirin (Aspirin 81 Mg) 81 mg PO DAILY [facility] Last Admin: 08/31/21 11:34 Dose: 81 mg Atorvastatin Calcium (Atorvastatin 80 Mg Tab) 80 mg PO HS [facility] Last Admin: 08/30/21 20:18 Dose: 80 mg Famotidine (Famotidine 20 Mg Tab) 20 mg PO BID [facility] Last Admin: 08/31/21 11:35 Dose: 20 mg Fentanyl Citrate (Fentanyl (Pf) 50 Mcg/Ml 2 Ml Amp) 50 mcg IVP Q4HR PRN PRN Reason: Severe Pain Last Admin: 08/31/21 10:20 Dose: 50 mcg Heparin Sodium (Porcine) (Heparin Sodium,Porcine/Pf 5,000 Unit/0.5 Ml Syringe) 5,000 unit SQ Q12HR [facility] Last Admin: 08/31/21 11:36 Dose: 5,000 unit Losartan Potassium (Losartan 50 Mg Tab) 50 mg PO DAILY [facility] Last Admin: 08/31/21 11:35 Dose: 50 mg Metoprolol Tartrate (Metoprolol Tartrate 25 Mg Tab) 25 mg PO BID [facility] Last Admin: 08/31/21 11:35 Dose: 25 mg Miscellaneous Information (Magnesium Replacement Protocol 1 Each Misc) 1 each MISCELLANE DAILY PRN; Protocol PRN Reason: Per Protocol Naloxone HCl (Naloxone 0.4 Mg/Ml 1 Ml Vial) 0.2 mg IV Q2M PRN PRN Reason: Opioid Reversal Nitroglycerin (Nitroglycerin Sl Tabs 0.4 Mg Tab) 0.4 mg SUBLINGUAL Q5M PRN PRN Reason: Chest Pain Ticagrelor (Ticagrelor 90 Mg Tab) 90 mg PO BID [facility] Last Admin: 08/31/21 11:34 Dose: 90 mg Objective - Vital Signs Vital signs: Vital Signs Temp 98.4 F 08/31/21 09:00 Pulse 62 08/31/21 14:00 Resp 26 H 08/31/21 12:30 BP 145/97 08/31/21 12:30 Pulse Ox 94 L 08/31/21 12:30 FiO2 Intake & Output 08/30/21 08/31/21 08/31/21 18:59 06:59 18:59 Intake Total 990 500 200 Output Total 0 0 Balance 990 500 200 Weight 90.2 kg Intake: IV 140 Sodium Chloride 0.9% 1, 140 000 ml @ 20 mls/hr IV . Q24H [facility] Rx#:[id number] Intake, IV Titration 200 200 Amount Magnesium Sulfate-D5w Pmx 200 1 gm In Dextrose/Water 1 100ml.bag @ 100 mls/hr IVPB Q1H [facility] Rx#: [id number] Magnesium Sulfate-D5w Pmx 200 1 gm In Dextrose/Water 1 100ml.bag @ 100 mls/hr IVPB Q1H [facility] Rx#: [id number] Oral 650 500 Output: Urine 0 0 Other: Voiding Method Toilet Toilet Toilet # Voids 1 0 1 - Labs CBC & Chem 7: 08/31/21 06:42 08/31/21 06:42 Labs: Abnormal Lab Results - Last 24 Hours (Table) 08/31/21 08/31/21 Range/Units 06:42 06:42 RBC 4.23 L (4.30-5.90) m/uL Plt Count 144 L (150-450) k/uL Chloride 111 H (98-107) mmol/L Glucose 128 H (74-99) mg/dL HDL Cholesterol 61.80 H (40.00-60.00) mg/dL
[2021-08-31] MEDS: ATORVASTATIN 80 MG TAB PO SCH (20:14)
[2021-09-01 07:14] LABS: Basophils % (A) 0 %; Eosinophils # (A) 0.4 k/uL (0-0.7); Eosinophils % (A) 9 %; HGB 13.1 gm/dL (13.0-17.5); Lymphocytes # (A) 1.4 k/uL (1.0-4.8); Lymphocytes % (A) 29 %; MCH 31.5 pg (25.0-35.0); MCHC 33.6 g/dL (31.0-37.0); MCV 93.6 fL (80.0-100.0); Mean Platelet Volume 9.5; Monocytes # (A) 0.4 k/uL (0-1.0); Monocytes % (A) 8 %; Neutrophils # (A) 2.4 k/uL (1.3-7.7); Neutrophils % (A) 52 %; RBC 4.17 m/uL (4.30-5.90); RDW 13.8 % (11.5-15.5); WBC 4.7 k/uL (3.8-10.6)
[2021-09-01 07:23] LABS: African American GFR (CKD) >90 (>60 ml/min/1.73 sqM); Anion Gap 6 mmol/L; Blood Urea Nitrogen 16 mg/dL (9-20); Carbon Dioxide 22 mmol/L (22-30); Chloride 109 mmol/L (98-107); Glucose 111 mg/dL (74-99); Non-African American GFR(CKD) 80 (>60 ml/min/1.73 sqM); Potassium 4.4 mmol/L (3.5-5.1); Sodium 137 mmol/L (137-145)
[2021-09-01] MEDS: ASPIRIN 81 MG PO SCH (08:48)
[2021-09-01] MEDS: FAMOTIDINE 20 MG TAB PO SCH (08:48)
[2021-09-01] MEDS: LOSARTAN 50 MG TAB PO SCH (08:49)
[2021-09-01] MEDS: TICAGRELOR 90 MG TAB PO SCH (08:49)
[2021-09-01] MEDS: METOPROLOL TARTRATE 25 MG TAB PO SCH (08:49)
[2021-09-01] MEDS: HEPARIN SODIUM,PORCINE/PF 5,000 UNIT/0.5 ML SYRINGE SQ SCH (08:50)
[2021-09-01 09:08] LABS: Anisocytosis (M) Present; Poikilocytosis (M) Present
[2021-09-01 09:16] LABS: Mean Platelet Volume 13.9
--- NOTE | 2021-09-01 09:39 | P.PN ---
Subjective Progress Note Date: 09/01/21 76-year-old male patient, presented with acute strokelike symptoms. The patient presented to the emergency department having weakness on the right side of the body in addition to slurred speech and tingling in the right arm. He also had some right facial droop. No altered mentation. No headaches. CT of the brain was done in the emergency room that showed no acute CVA. CT angiogram showed a 50% carotid stenosis internal on the right. The patient was found to be a good candidate for TPA and this was administered with subsequent improvement in his symptoms and the patient got transferred to the intensive care unit for further monitoring. He is known to have coronary artery disease with previous coronary stenting, and he is also known to have hypertension and previous history of peptic ulcer disease. No previous history of CVA. No previous history of atrial fibrillation. He has chronic upper lipidemia and iron deficiency as comorbid conditions. Overnight, the patient did well. No specific complaints. On 08/31/2021, I'm seeing this patient in a follow-up in the intensive care unit. He remains in intensive care unit for further monitoring. The patient underwent an MRI of the brain yesterday that showed increased uptake within the cortex of the left parietal lobe compatible with acute cortical infarct. There is also some chronic periventricular white matter disease. Otherwise, the patient is hemodynamically stable. Cardiac rhythm remains sinus. There is some residual weakness on the right upper extremity. Speech is normal. Comprehension is normal. No evidence of an expressive aphasia. White cell count is at 5.2 and hemoglobin of 13. Electrodes are all within normal limits. The patient's LDL cholesterol is at 66. For now, the patient is on aspirin 81 mg by mouth daily and is also some purulent 90 mg by mouth twice a day. 09/01/2021, the patient is stable, the patient is ambulating. No new onset focal neurological deficits. He does have some weakness in his right upper extremity along with some lacking coordination. No issues with speech. No issues with gait. Motor function and lower extremity is adequate. He was com pleted and the patient was found to have a normal LV, there was mild mitral and tricuspid regurgitation. There was a patent foramen ovale with [id number] shunting with contrast bubble study. Normal descending thoracic aorta. Cardiac rhythm remains sinus and the patient remains on the same medication which includes aspirin, Brilinta, high-dose statins and he is also on metoprolol. BP is under good control for now. No other significant events otherwise. Objective - Vital Signs Vital signs: Vital Signs Temp 97.9 F 09/01/21 04:00 Pulse 69 09/01/21 08:00 Resp 22 09/01/21 08:00 BP 154/97 09/01/21 08:00 Pulse Ox 95 09/01/21 08:00 FiO2 Intake & Output 08/31/21 09/01/21 09/01/21 18:59 06:59 18:59 Intake Total 600 500 Output Total 0 Balance 600 500 Weight 90.1 kg Intake: Intake, IV Titration 200 Amount Magnesium Sulfate-D5w Pmx 200 1 gm In Dextrose/Water 1 100ml.bag @ 100 mls/hr IVPB Q1H [facility] Rx#: [id number] Oral 400 500 Output: Urine 0 Other: Voiding Method Toilet Toilet Toilet # Voids 1 1 - Exam Gen. appearance, the patient is calm and comfortable likely distress currently on room air oxygen The patient appeared well nourished and normally developed. Vital signs as documented. Head exam is unremarkable. No scleral icterus or corneal arcus noted. Neck is without jugular venous distension, thyromegaly, or carotid bruits. Carotid upstrokes are brisk bilaterally. Lungs are clear to auscultation and percussion. Cardiac exam reveals the PMI to be normally sized and situated. Rhythm is regular. First and second heart sounds normal. No murmurs, rubs or gallops. Abdominal exam reveals normal bowel sounds, no masses, no organomegaly and no aortic enlargement. Extremities are nonedematous and both femoral and pedal pulses are normal.Examination of the skin revealed no evidence of significant rashes, suspicious appearing nevi or other concerning lesions.Neurologically, the patient is awake and alert and the patient does not have any focal neurological deficit. Cranial nerves are essentially intact. - Labs CBC & Chem 7: 09/01/21 06:30 09/01/21 06:30 Labs: Abnormal Lab Results - Last 24 Hours (Table) 08/31/21 09/01/21 09/01/21 Range/Units 06:42 06:30 06:30 RBC 4.17 L (4.30-5.90) m/uL Chloride 109 H (98-107) mmol/L Glucose 111 H (74-99) mg/dL HDL Cholesterol 61.80 H (40.00-60.00) mg/dL Assessment and Plan Plan: Acute CVA with right facial droop, right arm weakness/numbness, acute onset, post TPA administration with subsequent clinical improvement. This morning, the patient is hemodynamically stable. No issues with hypertension and the cardiac rhythm is sinus. Motor function is improved considerably and the patient seems to be quite asymptomatic. The patient has some minimal residual weakness on the right upper extremity. MRI of the brain showed some left parietal cortical infarcts. On today's evaluation, the patient is ambulating. Clinically unchanged and he does have some minimal residual weakness in the right upper extremities and lack of coordination. PFO with [id number] shunt as identified on the MAXINE Right carotid artery stenosis, 50% and a internal carotid artery stenosis based on the CTA of the brain Coronary artery disease with previous coronary stenting Hypertension Hyperlipidemia History of iron deficiency anemia History of peptic ulcer disease Plan We'll discuss the need to above PFO closure with interventional cardiology Monitor neurologic function MRI of the brain noted Continue aspirin and Brilinta Lipitor 80 mg by mouth daily Degenerative metoprolol and losartan for now, outpatient medications IV fluids to KVO We'll continue to follow his follow-up
--- NOTE | 2021-09-01 10:24 | P.PN ---
Subjective Progress Note Date: 09/01/21 PROGRESS NOTE The patient is a 76-year-old male with a known history of CAD who presented with evidence of CVA and received TPA. He has almost total resolution of his symptoms. He underwent a MAXINE yesterday that showed a preserved systolic function with a small PFO with jwige-za-vunj shunting with Valsalva maneuver. He is ambulating without difficulty. Denies any chest pain, dizziness or palpitation. He denies any PND, orthopnea or peripheral edema. He continues to be on aspirin once a day, Lipitor 80 mg daily, losartan 50 mg daily, metoprolol 25 mg twice a day, Brilinta 90 mg twice a day and amlodipine on a when necessary basis. PHYSICAL EXAMINATION: Blood pressure 154/97 heart rate 69 LUNGS: Clear to auscultation HEART: Regular rate and rhythm, S1, S2. No S3. systolic ejection murmur at the base ABDOMEN: Soft, nontender, no organomegaly EXTREMETIES: No edema LAB: BUN 16, creatinine 0.94, potassium 4.4, hemoglobin 13.1 IMPRESSION: 1. Status post CVA and TPA treatment with significant improvement in the symptoms 2. History of CAD stable 3. Small PFO with ijwyb-fv-pfzn shunting 4. Hypertension PLAN: 1. Change amlodipine to 5 mg daily 2. Increase physical activity 3. Probable discharge home soon 4. Follow-up as an outpatient for further evaluation of his PFO 5. Obtain a duplex scan of the lower extremities to rule out DVT as a source of his embolism Objective - Vital Signs Vital signs: Vital Signs Temp 97.9 F 09/01/21 04:00 Pulse 69 09/01/21 08:00 Resp 22 09/01/21 08:00 BP 154/97 09/01/21 08:00 Pulse Ox 95 09/01/21 08:00 FiO2 Intake & Output 08/31/21 09/01/21 09/01/21 18:59 06:59 18:59 Intake Total 600 500 Output Total 0 Balance 600 500 Weight 90.1 kg Intake: Intake, IV Titration 200 Amount Magnesium Sulfate-D5w Pmx 200 1 gm In Dextrose/Water 1 100ml.bag @ 100 mls/hr IVPB Q1H RAMY Rx#: [id number] Oral 400 500 Output: Urine 0 Other: Voiding Method Toilet Toilet Toilet # Voids 1 1 - Labs CBC & Chem 7: 09/01/21 06:30 09/01/21 06:30 Labs: Abnormal Lab Results - Last 24 Hours (Table) 08/31/21 09/01/21 09/01/21 Range/Units 06:42 06:30 06:30 RBC 4.17 L (4.30-5.90) m/uL Chloride 109 H (98-107) mmol/L Glucose 111 H (74-99) mg/dL HDL Cholesterol 61.80 H (40.00-60.00) mg/dL
--- NOTE | 2021-09-01 11:13 | US ---
EXAMINATION TYPE: US venous doppler duplex LE DATE OF EXAM: 09/01/2021 10:55 AM COMPARISON: NONE CLINICAL HISTORY: R/O DVT. R/O DVT. No hx of DVT. No pain. Pt is on blood thinners. SIDE PERFORMED: Bilateral TECHNIQUE: The lower extremity deep venous system is examined utilizing real time linear array sonog onesimo with graded compression, doppler sonography and color-flow sonography. VESSELS IMAGED: Common Femoral Vein Deep Femoral Vein Greater Saphenous Vein * Femoral Vein Popliteal Vein Small Saphenous Vein * Proximal Calf Veins (* superficial vessels) Grayscale, color doppler, spectral doppler imaging performed of the deep veins of the lower extremiti es. There is normal flow, compressibility, vascular waveforms. Right Leg: Negative for DVT Left Leg: Negative for DVT IMPRESSION: No evidence of deep vein thrombosis of either lower extremity.
--- NOTE | 2021-09-01 11:43 | P.PN ---
Subjective Progress Note Date: 09/01/21 The patient continues to be doing better on daily basis. He continues to have weakness over the right hand. Objective - Vital Signs Vital signs: Vital Signs Temp 97.9 F 09/01/21 04:00 Pulse 69 09/01/21 08:00 Resp 22 09/01/21 08:00 BP 154/97 09/01/21 08:00 Pulse Ox 95 09/01/21 08:00 FiO2 Intake & Output 08/31/21 09/01/21 09/01/21 18:59 06:59 18:59 Intake Total 600 500 Output Total 0 Balance 600 500 Weight 90.1 kg Intake: Intake, IV Titration 200 Amount Magnesium Sulfate-D5w Pmx 200 1 gm In Dextrose/Water 1 100ml.bag @ 100 mls/hr IVPB Q1H RAMY Rx#: [id number] Oral 400 500 Output: Urine 0 Other: Voiding Method Toilet Toilet Toilet # Voids 1 1 - Exam GENERAL: The patient is lying in bed and is not in acute distress. NEUROLOGICAL: Higher mental function: The patient is awake, alert, oriented to self, place and time. Patient is following commands. No aphasia and no neglect. Cranial nerves: The pupils are round, equal and reactive to light . Visual armas are full to confrontation throughout. Extraocular movement is intact no nystagmus is noted. Facial sensation is normal to touch throughout. The facial strength is right nasolabial flattening. No dysarthria is noted. Motor: The strength is right hand surgical training specialist is 4 to 4+, right distal forearm is 4+ to 5-. No drift noted. Otherwise 5 over 5 throughout. Normal tone and bulk. Sensation: Normal to touch throughout - Labs CBC & Chem 7: 09/01/21 06:30 09/01/21 06:30 Labs: Abnormal Lab Results - Last 24 Hours (Table) 08/31/21 09/01/21 09/01/21 Range/Units 06:42 06:30 06:30 RBC 4.17 L (4.30-5.90) m/uL Chloride 109 H (98-107) mmol/L Glucose 111 H (74-99) mg/dL HDL Cholesterol 61.80 H (40.00-60.00) mg/dL Assessment and Plan Assessment: * Acute ischemic stroke (left parietal region. Symptoms of mild right facial brachial paresis, mild right hand weakness and numbness) Patient's NIH stroke scale is 4. Patient is status post TPA. Etiology of stroke is cryptogenic but seems embolic (unsure if artery to artery since has left ICA stenosis of 50% and unsure if prior to stroke was larger and broke off vs cardioembolic). Patient has positive PFO with right to left shunt. * Left ICA carotid stenosis 50% per CTA but per carotid duplex <50%. * While right ICA on duplex is 50-69% stenosis but this is asymptomatic side. * DM (Current HbA1c is 7.4) * Hypertension * Hyperlipidemia * CAD * Arthritis * BPH Plan: * MRI of the brain revealed increased signal on diffusion-weighted images along the cortex of the posterior parietal lobe, compatible with acute cortical infarcts. Some underlying chronic periventricular white matter ischemic change. I personally reviewed MRI agree with the findings. The stroke is clearly embolic. No significant carotid vascular disease noted. Therefore a cardiac source needs to be ruled out. * 2-D echo revealed normal left ventricular size and systolic function with EF 55-60%. Technically difficult study, poor acoustic window, unable to assess for an intra-atrial communication with a bubble study. Patient's stroke is clearly embolic in nature. * MAXINE: It is reported as normal left ventricular size and systolic function. Mild mitral and tricuspid regurgitation. Patent form in all valve with right to left shunting with contrast bubble study. Normal appearance of the descending thoracic aorta. No pericardial effusion. * Venous duplex of bilateral lower extremity is negative for DVT. * I recommend consideration of closing the PFO to avoid further strokes * Recommend an event monitor for 30 days to monitor for any A-fib/flutter. * Patient was taking aspirin 81 mg daily at home. Patient says that he used to take Brilinta in the past and tolerated it well. We will resume Brilinta 90 mg twice a day, along with aspirin 81 mg daily. May consider switching to Plavix after one month. * CTA of head and neck revealed about 50% stenosis of the proximal portion of the left ICA. No arterial occlusion, dissection or aneurysm. * Carotid duplex was reported as 50-69% stenosis of the right carotid bifurcation by ICA/CC ratio. Less than 50% stenosis of the left common bifurcation. * Vascular surgery team was consulted by the primary team. * Fasting a.m. lipid panel with cholesterol 144, LDL 66, HDL 64 and triglycerides 68. Continue Lipitor 80 mg daily. * Hemoglobin A1c 7.4. Suggest optimize control of diabetes to target A1c <7.0 * PT OT, speech therapy are consulted * Continue close neuro checks. * Continue cardiac monitoring. * DVT prophylaxis: Continue subq heparin 5000U every 12 hours.SCDs. * Will defer the rest of medical management to the primary team. * Upon discharge, recommend the patient to follow-up with a neurologist within 1-2 weeks. The plan is discussed with patient and ICU attending. Justus Lui M.D. Neuro-Hospitalist. Time with Patient: Less than 30
--- NOTE | 2021-09-01 12:28 | P.GSCN ---
History of Present Illness Consult date: 09/01/21 History of present illness: Александр is a 76-year-old male with a past medical history of coronary disease, hypertension, hyperlipidemia and arthritis who came in to the hospital for evaluation of possible stroke. He noticed some increasing right arm tingling in his arm not functioning well. He had a slight facial droop and was brought to the hospital. It was discussed with neurology intervention and he was considered a candidate and received TPA. The patient had improvement of the symptoms he is feeling much better at this time. He states his mom has a history of carotid artery stenosis. He denies any history of carotid disease. Throughout his workup he was found to have around 50% stenosis bilaterally. He also was found to have a PFO, no evidence of cardiac thrombus. No evidence of lower extremity thrombus. Review of Systems 14 point review of systems performed. Pertinent positives and negatives per the HPI Past Medical History Past Medical History: Hyperlipidemia, Hypertension, Myocardial Infarction (DC) Additional Past Medical History / Comment(s): anemia Last Myocardial Infarction Date:: 2017 History of Any Multi-Drug Resistant Organisms: None Reported Past Surgical History: Heart Catheterization With Stent Additional Past Surgical History / Comment(s): ulcer, right hand surgery Past Anesthesia/Blood Transfusion Reactions: No Reported Reaction Date of Last Stent Placement:: 02/16 Past Psychological History: No Psychological Hx Reported Smoking Status: Never smoker Past Alcohol Use History: None Reported Past Drug Use History: None Reported - Past Family History Father History Unknown: Yes Mother History Unknown: Yes Brother(s) Family Medical History: Unable to Obtain Sister(s) History Unknown: Yes Daughter(s) History Unknown: Yes Son(s) History Unknown: Yes Medications and Allergies Home Medications Medication Instructions Recorded Confirmed Type Aspirin [Foss Aspirin EC] 81 mg PO DAILY 02/14/18 08/29/21 History Metoprolol Tartrate [Lopressor] 25 mg PO BID #60 tab 02/17/18 08/29/21 Rx Nitroglycerin Sl Tabs [Nitrostat] 0.4 mg SUBLINGUAL Q5M PRN #25 tab 02/17/18 08/29/21 Rx Losartan [Cozaar] 50 mg PO DAILY 08/29/21 08/29/21 History Atorvastatin [Lipitor] 80 mg PO HS tab 09/01/21 Rx Ticagrelor [Brilinta] 90 mg PO BID #30 tab 09/01/21 Rx Allergies Allergy/AdvReac Type Severity Reaction Status Date / Time No Known Allergies Allergy Verified 08/29/21 12:56 Surgical - Exam Vital Signs Temp Pulse Resp BP Pulse Ox 97.7 F 60 15 152/107 98 08/29/21 12:20 08/29/21 12:20 08/29/21 12:20 08/29/21 12:20 08/29/21 12:20 Gen. is a pleasant cooperative male in no acute distress. HEENT is normal cephalic, atraumatic, extraocular motion intact. Heart appears regular at this time. Lungs are clear bilaterally. Abdomen is soft, nontender nondistended. Extremity show no clubbing, cyanosis or edema. Normal mood and affect. Cranial nerves II-[address] and ultrasound are reviewed. Disagree with the ultrasound remark regarding which is 60% right ICA stenosis slowly based on a carotid ratio, the velocities put him at a less than 50% stenosis with a peak systolic velocity of 94.3 area and this correlates with the computed tomography scan and less than 50% stenosis - Labs 09/01/21 06:30 09/01/21 06:30 Abnormal Lab Results - Last 24 Hours (Table) 09/01/21 09/01/21 Range/Units 06:30 06:30 RBC 4.17 L (4.30-5.90) m/uL Chloride 109 H (98-107) mmol/L Glucose 111 H (74-99) mg/dL Diabetes panel 09/01/21 Range/Units 06:30 Sodium 137 (137-145) mmol/L Potassium 4.4 (3.5-5.1) mmol/L Chloride 109 H (98-107) mmol/L Carbon Dioxide 22 (22-30) mmol/L BUN 16 (9-20) mg/dL Creatinine 0.94 (0.66-1.25) mg/dL Glucose 111 H (74-99) mg/dL Calcium 9.0 (8.4-10.2) mg/dL Calcium panel 09/01/21 Range/Units 06:30 Calcium 9.0 (8.4-10.2) mg/dL Pituitary panel 09/01/21 Range/Units 06:30 Sodium 137 (137-145) mmol/L Potassium 4.4 (3.5-5.1) mmol/L Chloride 109 H (98-107) mmol/L Carbon Dioxide 22 (22-30) mmol/L BUN 16 (9-20) mg/dL Creatinine 0.94 (0.66-1.25) mg/dL Glucose 111 H (74-99) mg/dL Calcium 9.0 (8.4-10.2) mg/dL Adrenal panel 09/01/21 Range/Units 06:30 Sodium 137 (137-145) mmol/L Potassium 4.4 (3.5-5.1) mmol/L Chloride 109 H (98-107) mmol/L Carbon Dioxide 22 (22-30) mmol/L BUN 16 (9-20) mg/dL Creatinine 0.94 (0.66-1.25) mg/dL Glucose 111 H (74-99) mg/dL Calcium 9.0 (8.4-10.2) mg/dL Assessment and Plan Assessment: Less than 50% bilateral carotid artery stenosis TIA PFO Plan: After review and imaging workup, the patient likely does have some degree of carotid stenosis however this at best around 50%. Given these findings, she agrees that medical management is his best discourse. We will plan to follow him up in the office for surveillance imaging.
--- NOTE | 2021-09-01 12:31 | P.DS ---
Providers Date of admission: 08/29/21 14:29 Attending physician: Niall Rojo Consults: 08/29/21 14:29 Consult Physician Urgent Consulting Provider: Jeni Krueger Consult Reason/Comments: CVA Do you want consulting provider notified?: Already Contacted 08/29/21 15:32 Consult Physician Urgent Consulting Provider: Ashley Horn Consult Reason/Comments: CVA status post alteplase administration Do you want consulting provider notified?: Already Contacted 08/30/21 19:37 Consult Physician Routine Consulting Provider: Elmer Albert Consult Reason/Comments: Embolic CVA, poor 2D ECHO, Suggest MAXINE Do you want consulting provider notified?: Yes 08/31/21 13:05 Consult Physician Routine Consulting Provider: Alberto Carson Consult Reason/Comments: cva with right ica 69% occlusion Do you want consulting provider notified?: Yes Primary care physician: [facility] Course: HISTORY OF PRESENT ILLNESS 76-year-old male one of my office patient with known for long time with multiple medical problem known to have history of anemia with iron deficiency, history of hypertension, history of CAD post angioplasty and stent placement 3 years ago, history of hyper and severe gastroesophageal Flex syndrome with peptic ulcer disease post stomach surgery in the past the patient presented to the emergency department at [facility] today around 10:15 AM with tingling sensation his right arm with slurred speech and slight weakness in the right side along with asymmetry droopy face. Patient denies any loss of strength completely in the extremity denies any severe headache or blurred vision. He ended up coming to emergency department at [facility] where was seen and evaluated initial assessment with laboratory value came back to be negative, CT of the brain shows no acute intracranial hemorrhage or gross acute cortical infarct small acute or hyper acute infarct cannot be excluded by the CAT scan. Patient was watch clinically demurs department shortly after decided to do TPA which was supported by a stroke team. Patient ended up being transferred to the intensive care unit hemodynamically was stable at the time continued to have tingling sensation and slight weakness with slurred speech and droopy face. Symptoms started improving some shortly after arriving to the intensive care unit but still have slight weakness in the right compared to the left. Vitals with a blood pressure initially was mildly elevated patient apparently has not use any of his blood pressure medication early otherwise not having any significant other abnormality. 08/30: Patient is seen today in the ICU. He has been seen by intesivist and neurology. MRI of the brain is ordered for today. Patient states that the numbness in the right arm is gone but he still has some stiffness. There is only a very slight weakness on the right arm and minimal facial drooping. Speech is back to baseline. Lower extremities equal and strong. Patient will be seen by PT, OT ST today. Patient has been afebrile, heart rate 60, blood pressure 131/82, pulse ox 93% on room air. Tragus rate 68, cholesterol 144, LDL 66, HDL 64. CBC was unremarkable. Creatinine 0.86. 08/31 patient is in ICU for overflow, MAXINE performed, showing small PFO, with right to left shunt, performed by Dr. Del Angel, , carotid Dopplers 50-69% stenosis right carotid bifurcation by the ICA /CCA ratio , less than 50% stenosis left common bifurcation, vertebral arteries are antegrade, neurology thinks this could be an embolic CVA presentation, with improvement on right upper extremity weakness, and right facial droop. Patient does not have any new or pre-existing right lower extremity or left upper and left lower extremity weakness. Patient's walking, without any difficulties, no aspiration noted dysphagia,. MRI of the brain, shows focal increased uptake within the cortex left parietal lobe, compatible with acute cortical infarcts, in view of these findings, we are going to obtain on consult with vascular Dr. Carson, regarding right minimally occlusive, carotid occlusive disease. Further recommendations to follow from cardiology regarding the PFO with [id number] shunt. Neurology thinks, that he might do well with home therapies, patient's receiving PT OT, blood pressures vital signs are stable, laboratories are stable, with blood sugars 128, creatinine 0.9, platelets triglycerides 152, patient is on aspirin and probably into metoprolol and Lipitor 80 09/01: Patient seen both by pulmonary and neurology, cardiology, with clearance for discharge, outpatient therapies, expected for the right upper extremity weakness, patient denies any aspiration events, speech is normal, no significant dysarthria, still facial droop right side. Discussed with Dr. Horne, for which imaging will be followed as an outpatient, medical management at this time, for the right carotid. 50-69%, and left carotid under 50%. PFO needs to be repaired, most likely to be done as an outpatient, with Dr. albert. Patient is to follow-up with normal PCP, Dr. Rojo, and Dr. Del Angel primary ophthalmic technologist. Dr. Sher Cornejo for CVA, embolic most likely secondary to PFO. No significant stenosis noted, with medical management related to the rapid stenosis, Dr. Horne to see as an outpatient for surveillance imaging tests. Patient to be discharged on do want her platelet, aspirin and Brilinta, continue statins Lipitor 80, amlodipine is not needed on discharge, has been been using it on the when necessary basis. Continue losartan and metoprolol REVIEW OF SYSTEMS Constitutional: No fever, no chills, no night sweats. No weight change. No weakness, fatigue or lethargy. No daytime sleepiness. EENT: No headache. No blurred vision or double vision, no loss of vision. No loss of Hearing, no ringing in the ears, no dizziness. No nasal drainage or congestion. No epistaxis. No sore throat.positive droopy face. Lungs: No shortness of breath, cough, no sputum production. No wheezing. Cardiovascular: No chest pain, no lower extremity edema. No palpitations. No paroxysmal nocturnal dyspnea. No orthopnea. No lightheadedness or dizziness. No syncopal episodes. Abdominal: No abdominal pain. No nausea, vomiting. No diarrhea. No constipation. No bloody or tarry stools.. No loss of appetite. Genitourinary: No dysuria, increased frequency, urgency. No urinary retention. Musculoskeletal: No myalgias. No muscle weakness, no gait dysfunction, no frequent falls. No back pain. No neck pain. Integumentary: No wounds, no lesions. No rash or pruritus. No unusual br uising. No change in hair or nails. Neurologic: Tingling right upper extremity resolved, slight facial droop, lower extremity strong and equal. Psychiatric: No depression. No anxiety. No mood swings. Endocrine: No abnormal blood sugars. No weight change. No excessive sweating or thirst. No cold intolerance. PHYSICAL EXAMINATION Gen: This is well-developed laying in bed no acute respiratory distress. HEENT: Head is atraumatic, normocephalic. Pupils equal, round. Sclerae is anicteric. positive asymmetry face with slight droopy face and the right side. NECK: Supple. No JVD. No lymphadenopathy. No thyromegaly. LUNGS: Clear to auscultation. No wheezes or rhonchi. No intercostal retractions. HEART: Regular rate and rhythm. No murmur. ABDOMEN: Soft. Bowel sounds are present. No masses. No tenderness. EXTREMITIES: No pedal edema. No calf tenderness. NEUROLOGICAL: Patient is awake, alert and oriented x3. Cranial nerves 2 through 12 show slight effect and cranial nerve VII on the right side, also patient had slight weakness in the right compared to the left with no flaccid sided this point, slight tingling sensation and numbness in the right side has resolved Final diagnosis - acute CVA affecting the left mid cerebral artery: Patient was hospitalized after giving TPA, will consult neurology. Patient be watch for any complication related TPA further testing and study including echo, might require transesophageal echocardiogram, heart monitor watch for any A. fib. Patient continued on aspirin 81 mg daily, Lipitor 80 mg daily. Right PFO with [id number] shunt, Dr. Del Angel performed MAXINE, 08/31/2021 management per cardiology, Minimal occlusive disease, right carotid artery, with 50-69%, under 50% on the left with CVA affecting the left mid cerebral artery consult with Dr. Horne - Urgent hypertension: Patient continued on losartan 50 mg daily, Lopressor 25 mg twice daily, amlodipine newly added added at 5 mg twice daily as needed with parameters, for systolic blood pressure above 150 or diastolic above 88. - Atherosclerotic heart disease: Post angioplasty and stent placement from January 2018 for the mid LAD, still seeing cardiology regular basis has been on secondary prevention apparently was and see cardiology recently. - Chronic history of iron deficiency anemia with history of gastrectomy: Patient hemoglobin was 13.6 today with normal hematocrit but had mild thrombocytopenia with platelets of 1 56,000 should be bit careful with any type of heparin product. - Hyperlipidemia: Resume atorvastatin 80mg as before. - BPH without any lower urinary tract symptomatology: Watch patient for any urinary retention if need Flomax can be used. - Thrombocytopenia: With no sign and symptom of any pancytopenia this point continue conservative management only. - GI prophylaxis: Patient be on Pepcid. - DVT prophylaxis: Knee-high GLORIA hose and Venodyne boots will be used. CODE STATUS: Full code DISCHARGE PLAN Stable discharge, outpatient PT, OT, speech therapies Patient Condition at Discharge: Stable Plan - Discharge Summary Discharge Rx Participant: No New Discharge Prescriptions: New Ticagrelor [Brilinta] 90 mg PO BID #30 tab Atorvastatin [Lipitor] 80 mg PO HS tab Continue Aspirin [Piatt Aspirin EC] 81 mg PO DAILY Metoprolol Tartrate [Lopressor] 25 mg PO BID #60 tab Nitroglycerin Sl Tabs [Nitrostat] 0.4 mg SUBLINGUAL Q5M PRN #25 tab PRN Reason: Chest Pain Losartan [Cozaar] 50 mg PO DAILY Discontinued Atorvastatin [Lipitor] 80 mg PO HS #30 tab Discharge Medication List Aspirin [Piatt Aspirin EC] 81 mg PO DAILY 02/14/18 [History] Metoprolol Tartrate [Lopressor] 25 mg PO BID #60 tab 02/17/18 [Rx] Nitroglycerin Sl Tabs [Nitrostat] 0.4 mg SUBLINGUAL Q5M PRN #25 tab 02/17/18 [Rx] Losartan [Cozaar] 50 mg PO DAILY 08/29/21 [History] Atorvastatin [Lipitor] 80 mg PO HS tab 09/01/21 [Rx] Ticagrelor [Brilinta] 90 mg PO BID #30 tab 09/01/21 [Rx] Follow up Appointment(s)/Referral(s): Elmer Albert MD [STAFF PHYSICIAN] - 1 Week Anaeyli Del Angel MD [STAFF PHYSICIAN] - 2 Weeks Phillip Cornejo MD [REFERRING] - 1 Week Niall Rojo MD [Primary Care Provider] - 1-2 days Nasra Horne DO [STAFF PHYSICIAN] - 2 Weeks Discharge Disposition: HOME SELF-CARE
[2021-09-01 12:40] VITALS: BP 134/86; PULSE 63; TEMP 97.6
[2021-09-01 13:08] VITALS: RESP 22
[2021-09-02] MEDS ORDERED: amLODIPine 5 MG TAB PO SCH (09:00)
== END 2021-09-01 13:57 | disposition home or self-care (01) | DRG 62 ==
LOC: EC 11:51 → 2SICU 14:29
PROVIDERS: ADMIT Internal Medicine Geriatric Medicine; ATTEND Internal Medicine Geriatric Medicine
PROC: 3E03317 Introduction of Other Thrombolytic into Peripheral Vein, Percutaneous Approach (ICD-10-PCS; principal; 2021-08-29)
PROC: B24BZZ4 Ultrasonography of Heart with Aorta, Transesophageal (ICD-10-PCS; 2021-08-31)
DX: I63.412 Cerebral infarction due to embolism of left middle cerebral artery (principal); G81.91 Hemiplegia, unspecified affecting right dominant side; Q21.1 Atrial septal defect; R29.704 NIHSS score 4; E11.9 Type 2 diabetes mellitus without complications; D69.6 Thrombocytopenia, unspecified; R47.81 Slurred speech; R29.810 Facial weakness; E78.5 Hyperlipidemia, unspecified; M19.90 Unspecified osteoarthritis, unspecified site; N40.0 Benign prostatic hyperplasia without lower urinary tract symptoms; I10 Essential (primary) hypertension; I65.23 Occlusion and stenosis of bilateral carotid arteries; E61.1 Iron deficiency; I44.0 Atrioventricular block, first degree; R20.2 Paresthesia of skin; I25.10 Atherosclerotic heart disease of native coronary artery without angina pectoris; Z95.5 Presence of coronary angioplasty implant and graft; I25.2 Old myocardial infarction; Z79.82 Long term (current) use of aspirin; Z79.899 Other long term (current) drug therapy; Z79.02 Long term (current) use of antithrombotics/antiplatelets; Z90.3 Acquired absence of stomach [part of]; Z82.49 Family history of ischemic heart disease and other diseases of the circulatory system
CPT/HCPCS: 36415; 37195; 70450; 70496; 70498; 70551; 71046; 80048; 80053; 80061; 83036; 83735; 84484; 85025; 85610; 85730; 93005; 93306; 93312; 93880; 93970; 99291

== ENCOUNTER 2021-09-02 17:06 | Inpatient (IN) | payer MEDICARE ==
[2021-09-02 17:39] LABS: Glucose,Whole Blood 100 mg/dL (70-110)
--- NOTE | 2021-09-02 17:39 | ED ---
Neuro HPI - General Chief Complaint: Neuro Symptoms/Deficit Stated Complaint: Possible stroke Time Seen by Provider: 09/02/21 17:10 Source: patient Mode of arrival: ambulatory Limitations: no limitations - History of Present Illness Is the patient presenting with stroke symptoms?: Yes Initial Comments: 76-year-old male presents the emergency room with strokelike symptoms. States that he was cooking dinner around 5 PM when he had weakness in his right hand. His also noted that he had some droop to his right lip. Patient was really just hospitalized and given alteplase for acute stroke on August 29. Workup demonstrated that the patient had left parietal infarct. Patient found to have a PFO and mild carotid disease. Patient left the hospital without any residual deficit. He was placed on Brilinta. He did take his dose this morning. Has follow-up scheduled with Dr. Horne and cardiology. He denies any headaches or visual changes. No other alleviating, precipitating or modifying factors - Related Data Home Medications: Home Medications Medication Instructions Recorded Confirmed Aspirin [Person Aspirin EC] 81 mg PO DAILY 02/14/18 09/02/21 Losartan [Cozaar] 50 mg PO DAILY 08/29/21 09/02/21 Previous Rx's Medication Instructions Recorded Metoprolol Tartrate [Lopressor] 25 mg PO BID #60 tab 02/17/18 Nitroglycerin Sl Tabs [Nitrostat] 0.4 mg SUBLINGUAL Q5M PRN #25 tab 02/17/18 Atorvastatin [Lipitor] 80 mg PO HS tab 09/01/21 Ticagrelor [Brilinta] 90 mg PO BID #30 tab 09/01/21 Allergies/Adverse Reactions: Allergies Allergy/AdvReac Type Severity Reaction Status Date / Time No Known Allergies Allergy Verified 09/02/21 18:06 Review of Systems ROS Statement: Those systems with pertinent positive or pertinent negative responses have been documented in the HPI. ROS Other: All systems not noted in ROS Statement are negative. General Exam Limitations: no limitations General appearance: alert, in no apparent distress Head exam: Present: atraumatic, normocephalic, other (flattening of right nasolabial fold) Eye exam: Present: normal appearance, PERRL, EOMI. Absent: scleral icterus, conjunctival injection, periorbital swelling ENT exam: Present: normal exam, mucous membranes moist Neck exam: Present: normal inspection. Absent: tenderness, meningismus, lymphadenopathy Respiratory exam: Present: normal lung sounds bilaterally. Absent: respiratory distress, wheezes, rales, rhonchi, stridor Cardiovascular Exam: Present: regular rate, normal rhythm, normal heart sounds. Absent: systolic murmur, diastolic murmur, rubs, gallop, clicks GI/Abdominal exam: Present: soft, normal bowel sounds. Absent: distended, tenderness, guarding, rebound, rigid Extremities exam: Present: full ROM, normal capillary refill, other (4/5 strength right upper extremity. 5/5 b/l lower and left upper extremity). Absent: tenderness, pedal edema, joint swelling, calf tenderness Back exam: Present: normal inspection Neurological exam: Present: alert, oriented X3, CN II-XII intact Psychiatric exam: Present: normal affect, normal mood Skin exam: Present: warm, dry, intact, normal color. Absent: rash Stroke MDM - Lab Data Result diagrams: 09/02/21 17:41 09/02/21 17:41 Lab Results 09/02/21 09/02/21 09/02/21 Range/Units 17:38 17:41 17:41 WBC 6.6 (3.8-10.6) k/uL RBC 4.47 (4.30-5.90) m/uL Hgb 13.6 (13.0-17.5) gm/dL Hct 41.7 (39.0-53.0) % MCV 93.2 (80.0-100.0) fL MCH 30.5 (25.0-35.0) pg MCHC 32.7 (31.0-37.0) g/dL RDW 13.7 (11.5-15.5) % Plt Count 138 L (150-450) k/uL MPV 9.9 Neutrophils % 48 % Lymphocytes % 34 % Monocytes % 6 % Eosinophils % 8 % Basophils % 1 % Neutrophils # 3.2 (1.3-7.7) k/uL Lymphocytes # 2.3 (1.0-4.8) k/uL Monocytes # 0.4 (0-1.0) k/uL Eosinophils # 0.5 (0-0.7) k/uL Basophils # 0.1 (0-0.2) k/uL PT 10.5 (9.0-12.0) sec INR 1.0 (<1.2) APTT 23.7 (22.0-30.0) sec Sodium (137-145) mmol/L Potassium (3.5-5.1) mmol/L Chloride (98-107) mmol/L Carbon Dioxide (22-30) mmol/L Anion Gap mmol/L BUN (9-20) mg/dL Creatinine (0.66-1.25) mg/dL Est GFR (CKD-EPI)AfAm (>60 ml/min/1.73 sqM) Est GFR (CKD-EPI)NonAf (>60 ml/min/1.73 sqM) Glucose (74-99) mg/dL POC Glucose (mg/dL) 100 (70-110) mg/dL POC Glu Dry Mixer ID Rae Garvin Calcium (8.4-10.2) mg/dL Total Bilirubin (0.2-1.3) mg/dL AST (17-59) U/L ALT (4-49) U/L Alkaline Phosphatase (38-126) U/L Troponin I (0.000-0.034) ng/mL Total Protein (6.3-8.2) g/dL Albumin (3.5-5.0) g/dL Triglycerides (0.00-149.00) mg/dL Cholesterol (0.00-200.00) mg/dL LDL Cholesterol, Calc (0.0-131.0) mg/dL VLDL Cholesterol, Calc (5.00-40.00) mg/dL HDL Cholesterol (40.00-60.00) mg/dL Cholesterol/HDL Ratio Ratio 09/02/21 09/02/21 09/03/21 Range/Units 17:41 17:41 06:34 WBC (3.8-10.6) k/uL RBC (4.30-5.90) m/uL Hgb (13.0-17.5) gm/dL Hct (39.0-53.0) % MCV (80.0-100.0) fL MCH (25.0-35.0) pg MCHC (31.0-37.0) g/dL RDW (11.5-15.5) % Plt Count (150-450) k/uL MPV Neutrophils % % Lymphocytes % % Monocytes % % Eosinophils % % Basophils % % Neutrophils # (1.3-7.7) k/uL Lymphocytes # (1.0-4.8) k/uL Monocytes # (0-1.0) k/uL Eosinophils # (0-0.7) k/uL Basophils # (0-0.2) k/uL PT (9.0-12.0) sec INR (<1.2) APTT (22.0-30.0) sec Sodium 137 (137-145) mmol/L Potassium 4.3 (3.5-5.1) mmol/L Chloride 105 (98-107) mmol/L Carbon Dioxide 26 (22-30) mmol/L Anion Gap 6 mmol/L BUN 19 (9-20) mg/dL Creatinine 1.05 (0.66-1.25) mg/dL Est GFR (CKD-EPI)AfAm 81 (>60 ml/min/1.73 sqM) Est GFR (CKD-EPI)NonAf 70 (>60 ml/min/1.73 sqM) Glucose 107 H (74-99) mg/dL POC Glucose (mg/dL) (70-110) mg/dL POC Glu Dry Mixer ID Calcium 9.3 (8.4-10.2) mg/dL Total Bilirubin 0.7 (0.2-1.3) mg/dL AST 49 (17-59) U/L ALT 34 (4-49) U/L Alkaline Phosphatase 88 (38-126) U/L Troponin I <0.012 (0.000-0.034) ng/mL Total Protein 6.9 (6.3-8.2) g/dL Albumin 4.1 (3.5-5.0) g/dL Triglycerides 92.50 (0.00-149.00) mg/dL Cholesterol 143.00 (0.00-200.00) mg/dL LDL Cholesterol, Calc 63.5 (0.0-131.0) mg/dL VLDL Cholesterol, Calc 18.50 (5.00-40.00) mg/dL HDL Cholesterol 61.00 H (40.00-60.00) mg/dL Cholesterol/HDL Ratio 2.34 Ratio - Medical Decision Making Upon arrival patient is placed in room 4. Through history and physical exam was performed. 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 NIH is 3. Code alteplase is activated. Patient is taken over for CT. Laboratory studies are reviewed and within normal limits. CT of the brain demonstrates no acute process. A CT angiography demonstrates questionable aneurysm of the anterior wall of the proximal left internal carotid with thrombosis. I spoke with Dr. Kingsley he does feel that this is an area of plaque rupture. Feels that the patient would benefit from carotid endarterectomy or stenting of his carotid. States that he will speak with Dr. Horne in regards the patient's case. Patient is not a TPA candidate as he recently just received TPA. He was given aspirin, Brilinta and statin. Admission orders are placed. Spoke with Dr. Whitmore who agreed to admit the patient with neurology and vascular consult 09/02/21 17:42 EKG demonstrates sinus rhythm with a rate of 64. KS interval 231. QRS 88. QTC 386. No acute ST segment elevations or depressions Past Medical History Past Medical History: Hyperlipidemia, Hypertension, Myocardial Infarction ([place]) Additional Past Medical History / Comment(s): anemia Last Myocardial Infarction Date:: 2017 History of Any Multi-Drug Resistant Organisms: None Reported Past Surgical History: Heart Catheterization With Stent Additional Past Surgical History / Comment(s): ulcer, right hand surgery Past Anesthesia/Blood Transfusion Reactions: No Reported Reaction Date of Last Stent Placement:: 02/16 Past Psychological History: No Psychological Hx Reported Smoking Status: Never smoker Past Alcohol Use History: None Reported Past Drug Use History: None Reported - Past Family History Father History Unknown: Yes Mother History Unknown: Yes Brother(s) Family Medical History: Unable to Obtain Sister(s) History Unknown: Yes Daughter(s) History Unknown: Yes Son(s) History Unknown: Yes Course Vital Signs 09/02/21 09/02/21 09/02/21 17:07 18:10 21:11 Temperature 97.9 F 97.6 F Pulse Rate 67 63 Pulse Rate [ 82 Pulse Oximetery ] Respiratory 20 18 18 Rate Blood Pressure 147/86 128/80 Blood Pressure 121/87 [Right Arm] O2 Sat by Pulse 99 97 97 Oximetry Critical Care Time Critical Care Time: Yes Critical Care Time: 32 minutes Disposition Clinical Impression: Cerebrovascular accident (CVA) Disposition: ADMITTED IP TO THIS HOSP Condition: Serious Is patient prescribed a controlled substance at d/c from ED?: No Time of Disposition: 19:02 Decision to Admit Reason: Admit from EC Decision Date: 09/02/21 Decision Time: 19:02
[2021-09-02 17:51] LABS: Basophils # (A) 0.1 k/uL (0-0.2); Basophils % (A) 1 %; Eosinophils # (A) 0.5 k/uL (0-0.7); Eosinophils % (A) 8 %; HCT 41.7 % (39.0-53.0); HGB 13.6 gm/dL (13.0-17.5); Lymphocytes # (A) 2.3 k/uL (1.0-4.8); Lymphocytes % (A) 34 %; MCH 30.5 pg (25.0-35.0); MCHC 32.7 g/dL (31.0-37.0); MCV 93.2 fL (80.0-100.0); Mean Platelet Volume 9.9; Monocytes # (A) 0.4 k/uL (0-1.0); Monocytes % (A) 6 %; Neutrophils # (A) 3.2 k/uL (1.3-7.7); Neutrophils % (A) 48 %; Platelet Count 138 k/uL (150-450); RBC 4.47 m/uL (4.30-5.90); RDW 13.7 % (11.5-15.5); WBC 6.6 k/uL (3.8-10.6)
--- NOTE | 2021-09-02 17:56 | CT ---
EXAMINATION TYPE: CT brain wo con DATE OF EXAM: 09/02/2021 COMPARISON: 08/29/2021 HISTORY: cva CT DLP: 1125.6 mGycm Automated exposure control for dose reduction was used. Images obtained of the brain with no contrast. There is mild cerebral atrophy. There is no mass effect or midline shift. No sign of intracranial hem orrhage. Calvarium is intact. IMPRESSION: Cerebral atrophy. No acute intracranial abnormality. No change.
[2021-09-02 18:00] LABS: Albumin 4.1 g/dL (3.5-5.0); Calcium 9.3 mg/dL (8.4-10.2); Partial Thromboplastin Time 23.7 sec (22.0-30.0); Potassium 4.3 mmol/L (3.5-5.1); Prothrombin Time 10.5 sec (9.0-12.0); Total Bilirubin 0.7 mg/dL (0.2-1.3); Total Protein 6.9 g/dL (6.3-8.2)
--- NOTE | 2021-09-02 18:33 | CT ---
EXAMINATION TYPE: CT angio head neck DATE OF EXAM: 09/02/2021 COMPARISON: None HISTORY: cva CT DLP: 508.1 mGycm Automated exposure control for dose reduction was used. CONTRAST: Performed with IV Contrast, patient injected with 65cc mL of Isovue 370. Images obtained from the aortic arch to the vertex of the brain with IV contrast. There are Three-D p ostprocessed images. There is normal branching pattern of the great vessels on the aortic arch. There is bilateral arteria l flow in the subclavian arteries. There is arterial flow in the common internal and external carotid arteries bilaterally. There is some aneurysmal changes at the left carotid artery bifurcation with c alcification and thrombus. There is approximate 50% stenosis of the proximal left internal carotid ar mattie. There is 20% stenosis origin of the right internal carotid artery. There is arterial flow in anthony th vertebral arteries. There is arterial flow in the vertebrobasilar artery system. No evidence of ar terial dissection. There is arterial flow in the anterior middle and posterior cerebral arteries bilaterally. No evidenc e of intracranial aneurysm or neovascularity. No mass effect. There is normal enhancement of the veno us sinuses. No evidence of intracranial hemodynamic arterial stenosis. IMPRESSION: No significant intracranial angiographic abnormality. Plaque formation and approximate 50% stenosis origin of the left internal carotid artery and 20% sten osis origin right internal carotid artery. 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
[2021-09-02] MEDS ORDERED: ASPIRIN 325 MG TAB PO STA (19:11)
[2021-09-02] MEDS: METOPROLOL TARTRATE 25 MG TAB PO SCH (21:10)
[2021-09-02] MEDS: TICAGRELOR 90 MG TAB PO SCH (21:10)
[2021-09-02] MEDS: ATORVASTATIN 80 MG TAB PO SCH (21:10)
[2021-09-03] MEDS: ASPIRIN 325 MG TAB PO SCH (07:59)
[2021-09-03] MEDS: METOPROLOL TARTRATE 25 MG TAB PO SCH ×2 (07:59→20:21)
[2021-09-03] MEDS: TICAGRELOR 90 MG TAB PO SCH ×2 (07:59→20:21)
[2021-09-03] MEDS: LOSARTAN 50 MG TAB PO SCH (07:59)
--- NOTE | 2021-09-03 09:15 | P.GSCN ---
History of Present Illness Consult date: 09/03/21 History of present illness: Александр is a 76-year-old male who was recently admitted with TIA/CVA who was found to have around 50% stenosis of his left ICA on computed tomography scan. He is also found to have a PFO and at that time was sent home on antiplatelet therapy. He was home for a few days when he began having increasing weakness again in his right upper extremity therefore he returned to the hospital. Computed tomography scan of the brain found no acute abnormalities The patient this time feels better. He is taking his medications. Past Medical History Past Medical History: Hyperlipidemia, Hypertension, Myocardial Infarction ([place]) Additional Past Medical History / Comment(s): anemia Last Myocardial Infarction Date:: 2017 History of Any Multi-Drug Resistant Organisms: None Reported Past Surgical History: Heart Catheterization With Stent Additional Past Surgical History / Comment(s): ulcer, right hand surgery Past Anesthesia/Blood Transfusion Reactions: No Reported Reaction Date of Last Stent Placement:: 02/16 Past Psychological History: No Psychological Hx Reported Smoking Status: Never smoker Past Alcohol Use History: None Reported Past Drug Use History: None Reported - Past Family History Father History Unknown: Yes Mother History Unknown: Yes Brother(s) Family Medical History: Unable to Obtain Sister(s) History Unknown: Yes Daughter(s) History Unknown: Yes Son(s) History Unknown: Yes Medications and Allergies Home Medications Medication Instructions Recorded Confirmed Type Aspirin [[place] Aspirin EC] 81 mg PO DAILY 02/14/18 09/02/21 History Metoprolol Tartrate [Lopressor] 25 mg PO BID #60 tab 02/17/18 09/02/21 Rx Nitroglycerin Sl Tabs [Nitrostat] 0.4 mg SUBLINGUAL Q5M PRN #25 tab 02/17/18 09/02/21 Rx Losartan [Cozaar] 50 mg PO DAILY 08/29/21 09/02/21 History Atorvastatin [Lipitor] 80 mg PO HS tab 09/01/21 09/02/21 Rx Ticagrelor [Brilinta] 90 mg PO BID #30 tab 09/01/21 09/02/21 Rx Allergies Allergy/AdvReac Type Severity Reaction Status Date / Time No Known Allergies Allergy Verified 09/02/21 18:06 Surgical - Exam Vital Signs Temp Pulse Resp BP Pulse Ox 97.9 F 67 20 147/86 99 09/02/21 17:07 09/02/21 17:07 09/02/21 17:07 09/02/21 17:07 09/02/21 17:07 Gen. is a pleasant cooperative thin male in no acute distress. HEENT is no sac, atraumatic, extra motion intact. Heart appears regular at this time. Lungs are clear bilaterally. Abdomen soft, nontender nondistended. Extremity no clubbing, cyanosis or edema. Cranial nerves II-12 grossly intact. Normal mood and affect Results CT scans reevaluated. The plaque does appear atheromatous in nature. Question of possible plaque rupture versus ulcerative plaque. Doubt true aneurysm - Labs 09/02/21 17:41 09/02/21 17:41 Abnormal Lab Results - Last 24 Hours (Table) 09/02/21 09/02/21 Range/Units 17:41 17:41 Plt Count 138 L (150-450) k/uL Glucose 107 H (74-99) mg/dL Diabetes panel 09/02/21 Range/Units 17:41 Sodium 137 (137-145) mmol/L Potassium 4.3 (3.5-5.1) mmol/L Chloride 105 (98-107) mmol/L Carbon Dioxide 26 (22-30) mmol/L BUN 19 (9-20) mg/dL Creatinine 1.05 (0.66-1.25) mg/dL Glucose 107 H (74-99) mg/dL Calcium 9.3 (8.4-10.2) mg/dL AST 49 (17-59) U/L ALT 34 (4-49) U/L Alkaline Phosphatase 88 (38-126) U/L Total Protein 6.9 (6.3-8.2) g/dL Albumin 4.1 (3.5-5.0) g/dL Calcium panel 09/02/21 Range/Units 17:41 Calcium 9.3 (8.4-10.2) mg/dL Albumin 4.1 (3.5-5.0) g/dL Pituitary panel 09/02/21 Range/Units 17:41 Sodium 137 (137-145) mmol/L Potassium 4.3 (3.5-5.1) mmol/L Chloride 105 (98-107) mmol/L Carbon Dioxide 26 (22-30) mmol/L BUN 19 (9-20) mg/dL Creatinine 1.05 (0.66-1.25) mg/dL Glucose 107 H (74-99) mg/dL Calcium 9.3 (8.4-10.2) mg/dL Adrenal panel 09/02/21 Range/Units 17:41 Sodium 137 (137-145) mmol/L Potassium 4.3 (3.5-5.1) mmol/L Chloride 105 (98-107) mmol/L Carbon Dioxide 26 (22-30) mmol/L BUN 19 (9-20) mg/dL Creatinine 1.05 (0.66-1.25) mg/dL Glucose 107 H (74-99) mg/dL Calcium 9.3 (8.4-10.2) mg/dL Total Bilirubin 0.7 (0.2-1.3) mg/dL AST 49 (17-59) U/L ALT 34 (4-49) U/L Alkaline Phosphatase 88 (38-126) U/L Total Protein 6.9 (6.3-8.2) g/dL Albumin 4.1 (3.5-5.0) g/dL Assessment and Plan Assessment: ? Symptomatic left internal carotid artery stenosis PFO Plan: At this time given the patient's continued concern as well as the appearance of the plaque on imaging and being at 50% stenosis, we will go forward with carotid endarterectomy. Risks and benefits were discussed with the patient and his family. The patient was also discussed with neurology, neuro interventional assist, and the primary team. This point we'll continue the antiplatelet therapy at the time of the surgery.
[2021-09-03 11:09] LABS: Chol/HDL Ratio 2.34 Ratio; LDL Cholesterol,Calculated 63.5 mg/dL (0.0-131.0)
--- NOTE | 2021-09-03 11:25 | P.HPIM ---
History of Present Illness H&P Date: 09/03/21 HISTORY OF PRESENT ILLNESS 76-year-old male one of my office patient with known for long time with multiple medical problem known to have history of anemia with iron deficiency, history of hypertension, history of CAD post angioplasty and stent placement 3 years ago, history of hyper and severe gastroesophageal reflux disease with peptic ulcer disease post stomach surgery. 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 Patient underwent MAXINE that showed a small PFO with [id number] shunt and also carotid ultrasound revealed right carotid artery disease of 50-69%. Patient was discharged home in stable condition. Patient had developed sudden onset of tingling and his fingers and weakness as well as facial droop. He states he was using a stress ball and he could notice a difference. Patient return to the emergency center for further evaluation. Patient was found to be afebrile, heart rate in the 60s, blood pressure 147/86, pulse ox 99% on room air. EKG was a sinus rhythm with no acute ST changes. CBC revealed platelet count of 138. Electrolytes and renal function normal. Blood sugar 107. Liver function tests were normal. Troponin negative. CT angiogram of the head and neck revealed no significant abnormality. Plaque formation approximately 50% stenosis of the left internal carotid artery and 20% stenosis of the right. 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 CAT scan of the brain showed no acute intracranial abnormality. Cerebral atrophy. Patient admitted to the cardiac stepdown unit and consult in place with vascular surgery with plan for left carotid endarterectomy on . Consult added for cardiology regarding PFO which will require probable closure at a later date. REVIEW OF SYSTEMS Constitutional: No fever, no chills, no night sweats. No weight change. No weakness, fatigue or lethargy. No daytime sleepiness. EENT: No headache. No blurred vision or double vision, no loss of vision. No loss of Hearing, no ringing in the ears, no dizziness. No nasal drainage or con gestion. No epistaxis. No sore throat.positive droopy face. Lungs: No shortness of breath, cough, no sputum production. No wheezing. Cardiovascular: No chest pain, no lower extremity edema. No palpitations. No paroxysmal nocturnal dyspnea. No orthopnea. No lightheadedness or dizziness. No syncopal episodes. Abdominal: No abdominal pain. No nausea, vomiting. No diarrhea. No constipation. No bloody or tarry stools.. No loss of appetite. Genitourinary: No dysuria, increased frequency, urgency. No urinary retention. Musculoskeletal: No myalgias. No muscle weakness, no gait dysfunction, no frequent falls. No back pain. No neck pain. Integumentary: No wounds, no lesions. No rash or pruritus. No unusual bruising. No change in hair or nails. Neurologic: Tingling and weakness and the right arm, facial droop Psychiatric: No depression. No anxiety. No mood swings. Endocrine: No abnormal blood sugars. No weight change. No excessive sweating or thirst. No cold intolerance. 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 FAMILY HISTORY his mother dying 90 from CHF, his father in his 80s from pancreatitis. Patient had one sister who from aplastic anemia. Patient has 2 children daughter with breast cancer and son with hypertension. PHYSICAL EXAMINATION Gen: This is well-developed laying in bed no acute respiratory distress. HEENT: Head is atraumatic, normocephalic. Pupils equal, round. Sclerae is anicteric. positive asymmetry face with slight droopy face and the right side. NECK: Supple. No JVD. No lymphadenopathy. No thyromegaly. LUNGS: Clear to auscultation. No wheezes or rhonchi. No intercostal retractions. HEART: Regular rate and rhythm. No murmur. ABDOMEN: Soft. Bowel sounds are present. No masses. No tenderness. EXTREMITIES: No pedal edema. No calf tenderness. NEUROLOGICAL: Patient is awake, alert and oriented x3. Cranial nerves 2 through 12 grossly intact. No right sided upper or lower extremity weakness. ASSESSMENT AND PLAN -Acute CVA affecting the left mid cerebral artery presenting with extension of CVA. Continue patient on aspirin 325 mg daily, Lipitor 80 mg daily, Proventil 90 mg twice daily. Consult with vascular surgery appreciated, plan for left carotid endarterectomy on . PFO with [id number] shunt. Cardiology consult. Recent acute CVA status post TPA. -Hypertension. Continue losartan 50 mg daily, Lopressor 25 mg twice daily. - Atherosclerotic heart disease: Post angioplasty and stent placement from January 2018 for the mid LAD, still seeing cardiology regular basis has been on secondary prevention apparently was and see cardiology recently. - Chronic history of iron deficiency anemia with history of gastrectomy. Hemoglobin stable. - Hyperlipidemia: Resume atorvastatin. - BPH: Watch patient for any urinary retention if need Flomax can be used. - Thrombocytopenia: With no sign and symptom of any pancytopenia this point continue conservative management only. - GI prophylaxis: Patient be on Pepcid. - DVT prophylaxis: Knee-high GLORIA hose and Venodyne boots will be used. CODE STATUS: Full code Patient will be admitted to the hospital for a minimum of 2 night stay. DISCHARGE PLAN home Impression and plan of care have been directed as dictated by the signing physician. Leonora Dominguez nurse practitioner acting as scribe for signing physician. Past Medical History Past Medical History: Hyperlipidemia, Hypertension, Myocardial Infarction ([place]) Additional Past Medical History / Comment(s): anemia Last Myocardial Infarction Date:: 2017 History of Any Multi-Drug Resistant Organisms: None Reported Past Surgical History: Heart Catheterization With Stent Additional Past Surgical History / Comment(s): ulcer, right hand surgery Past Anesthesia/Blood Transfusion Reactions: No Reported Reaction Date of Last Stent Placement:: 02/16 Past Psychological History: No Psychological Hx Reported Smoking Status: Never smoker Past Alcohol Use History: None Reported Past Drug Use History: None Reported - Past Family History Father History Unknown: Yes Mother History Unknown: Yes Brother(s) Family Medical History: Unable to Obtain Sister(s) History Unknown: Yes Daughter(s) History Unknown: Yes Son(s) History Unknown: Yes Medications and Allergies Home Medications Medication Instructions Recorded Confirmed Type Aspirin [[place] Aspirin EC] 81 mg PO DAILY 02/14/18 09/02/21 History Metoprolol Tartrate [Lopressor] 25 mg PO BID #60 tab 02/17/18 09/02/21 Rx Nitroglycerin Sl Tabs [Nitrostat] 0.4 mg SUBLINGUAL Q5M PRN #25 tab 02/17/18 09/02/21 Rx Losartan [Cozaar] 50 mg PO DAILY 08/29/21 09/02/21 History Atorvastatin [Lipitor] 80 mg PO HS tab 09/01/21 09/02/21 Rx Ticagrelor [Brilinta] 90 mg PO BID #30 tab 09/01/21 09/02/21 Rx Allergies Allergy/AdvReac Type Severity Reaction Status Date / Time No Known Allergies Allergy Verified 09/02/21 18:06 Physical Exam Vitals: Vital Signs Temp Pulse Pulse Resp BP BP Pulse Ox 09/03/21 07:57 98.7 F 86 16 120/74 97 09/03/21 03:15 98.1 F 55 L 16 132/73 95 09/03/21 03:14 98.1 F 55 L 16 132/73 95 09/03/21 02:00 56 L 17 09/02/21 23:51 97.8 F 56 L 17 167/91 98 09/02/21 23:20 97.8 F 56 L 17 167/91 98 09/02/21 22:57 97.8 F 56 L 17 167/91 98 09/02/21 21:11 97.6 F 82 18 121/87 97 09/02/21 18:10 63 18 128/80 97 09/02/21 17:07 97.9 F 67 20 147/86 99 Intake and Output 09/02/21 09/03/21 09/03/21 22:59 06:59 14:59 Intake Total 600 Balance 600 Intake: Oral 600 Other: Voiding Method Toilet # Voids 2 Weight 88.2 kg Results CBC & Chem 7: 09/02/21 17:41 09/02/21 17:41 Labs: Abnormal Lab Results - Last 24 Hours (Table) 09/02/21 09/02/21 Range/Units 17:41 17:41 Plt Count 138 L (150-450) k/uL Glucose 107 H (74-99) mg/dL Thrombosis Risk Factor Assmnt - Choose All That Apply Any of the Below Risk Factors Present?: No Other Risk Factors: Yes Each Risk Factor Represents 2 Points: Age 61-74 years Other congenital or acquired thrombophilia - If yes, enter type in comment: Yes Each Risk Factor Represents 5 Points: Stroke (< 1 month) Thrombosis Risk Factor Assessment Total Risk Factor Score: 7 Thrombosis Risk Factor Assessment Level: High Risk
--- NOTE | 2021-09-03 12:13 | P.CNNES ---
History of Present Illness Consult date: 09/03/21 Requesting physician: Mally Thornton Reason for Consult: acute cva, recent cva History of Present Illness: This is a 76-year-old gentleman with a recent stroke over the left parietal region status post IV TPA at the end of July 2021 with residual right mild facial weakness and right hand weakness, left ICA stenosis 50%, diabetes, hypertension, hyperlipidemia, coronary artery disease, benign prostate hyperplasia who presented to our facility again on 09/02/2021 because of worsening of weakness of the right hand and right facial droop. It seems that while the patient the was cooking dinner noted that he is having weakness that's worse than baseline over the right hand and facial droop. Patient was recently discharged from FACILITY regarding his stroke and he had a left parietal stroke and has residual right hand weakness and mild right facial weakness. During that time he received IV TPA and extensive workup was done. Left ICA stenosis was 50% per CTA and the patient was found to have a PFO on MAXINE. Cardiology was on board and vascular surgery was on board. Patient was discharged on aspirin and Brilinta. Was recommended for the PFO to be closed out. I also recommended an event monitor for 30 days to monitor for A. fib or flutter. Please for to our neurology notes for further details. According to the patient's family members who are bedside and his and that his daughters they stated that the patient is back to baseline and the feeling is back to baseline now. And they noticed was back to baseline after being in the emergency department. Some of the workup during this hospital visit consisted off CBC and chemistry panel were reviewed and they seemed unremarkable other than t he platelets was 138,000. CT of the head is reported as cerebral atrophy. No acute intracranial abn ormality. No change. I personally reviewed the CT of the head and there is no acute subacute ischemia. The patient has the risks residual old left frontal parietal seems more subacute to chronic from his recent stroke prior admission. CT angiography of the head and neck was reported as no significant intercranial and angiographic abnormality. Plaque formation proximal was 50% stenosis origin of the left ICA and 20% of the right ICA. 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 Patient NIH stroke scale was a 3. Stroke code was activated. The ED physician spoke with the stroke attending and further that stroke attending does feel that this is the area plaque rupture. And the stroke attending feels the patient will benefit from carotid directly or stenting. Patient is not a TPA candidate because the risk out weigh the benefits especially since the patient just received IV TPA on recent prior admission. Review of Systems Review of system: The 12 point system was reviewed and apparent positive and negative per HPI. Past Medical History Past Medical History: Hyperlipidemia, Hypertension, Myocardial Infarction (DC) Additional Past Medical History / Comment(s): anemia Last Myocardial Infarction Date:: 2017 History of Any Multi-Drug Resistant Organisms: None Reported Past Surgical History: Heart Catheterization With Stent Additional Past Surgical History / Comment(s): ulcer, right hand surgery Past Anesthesia/Blood Transfusion Reactions: No Reported Reaction Date of Last Stent Placement:: 02/16 Past Psychological History: No Psychological Hx Reported Smoking Status: Never smoker Past Alcohol Use History: None Reported Past Drug Use History: None Reported - Past Family History Father History Unknown: Yes Mother History Unknown: Yes Brother(s) Family Medical History: Unable to Obtain Sister(s) History Unknown: Yes Daughter(s) History Unknown: Yes Son(s) History Unknown: Yes Medications and Allergies Home Medications Medication Instructions Recorded Confirmed Type Aspirin [Eddy Aspirin EC] 81 mg PO DAILY 02/14/18 09/02/21 History Metoprolol Tartrate [Lopressor] 25 mg PO BID #60 tab 02/17/18 09/02/21 Rx Nitroglycerin Sl Tabs [Nitrostat] 0.4 mg SUBLINGUAL Q5M PRN #25 tab 02/17/1806/21 Rx Losartan [Cozaar] 50 mg PO DAILY 08/29/21 09/02/21 History Atorvastatin [Lipitor] 80 mg PO HS tab 09/01/21 09/02/21 Rx Ticagrelor [Brilinta] 90 mg PO BID #30 tab 09/01/21 09/02/21 Rx Allergies Allergy/AdvReac Type Severity Reaction Status Date / Time No Known Allergies Allergy Verified 09/02/21 18:06 Physical Examination - Vital Signs Vital Signs: Vital Signs Temp Pulse Pulse Resp BP BP Pulse Ox 09/03/21 07:57 98.7 F 86 16 120/74 97 09/03/21 03:15 98.1 F 55 L 16 132/73 95 09/03/21 03:14 98.1 F 55 L 16 132/73 95 09/03/21 02:00 56 L 17 09/02/21 23:51 97.8 F 56 L 17 167/91 98 09/02/21 23:20 97.8 F 56 L 17 167/91 98 09/02/21 22:57 97.8 F 56 L 17 167/91 98 09/02/21 21:11 97.6 F 82 18 121/87 97 09/02/21 18:10 63 18 128/80 97 09/02/21 17:07 97.9 F 67 20 147/86 99 Intake and Output 09/02/21 09/03/21 09/03/21 22:59 06:59 14:59 Intake Total 600 240 Balance 600 240 Intake: Oral 600 240 Other: Voiding Method Toilet # Voids 2 Weight 88.2 kg GENERAL: The patient is lying in bed and is not in acute distress. CHEST: The heart rate is regular rate rhythm. No murmurs to auscultation. No carotid bruit bilaterally. LUNG: Clear to auscultation bilaterally no wheezing noted throughout. Not labored breathing. ABDOMEN/GI: Bowel sounds present in all 4 quadrants. No tenderness to palpation throughout. NEUROLOGICAL: Higher mental function: The patient is awake, alert, oriented to self, place and time. Patient is following commands. No aphasia and no neglect. Cranial nerves: The pupils are round, equal and reactive to light and accommodation. Visual armas are full to confrontation throughout. Extraocular movement is intact no nystagmus is noted. Facial sensation is normal to touch throughout. The facial strength is mild right facial droop. Hearing is normal bilaterally to hand rub. Tongue is midline and moved [id number] without any difficulty. No dysarthria is noted. Shoulder shrug is normal bilaterally. Motor: The strength is right hand interventional radiology technologist and wrist strength is 4+. Otherwise 5 over 5 throughout. Normal tone and bulk. Cerebellum: Normal finger to nose bilaterally. Sensation: Sensation is slightly decreased to touch over the right distal upper extremity. Otherwise normal to touch throughout. Reflexes (right/left): 2+ throughout Plantars are downgoing bilaterally. Results - Laboratory Findings CBC and BMP: 09/02/21 17:41 09/02/21 17:41 Abnormal Lab Findings: Abnormal Labs 09/02/21 09/02/21 17:41 17:41 Plt Count 138 L Glucose 107 H Assessment and Plan Assessment: Acute worsening of right facial droop and hand weakness: TIA. Seems likely due to symptomatic Left ICA. Recent left parietal region status post IV TPA at the end of July 2021 with residual mild right facial weakness and right hand weakness Left ICA stenosis 50% per CTA +positive PFO on recent MAXINE Diabetes Hypertension Hyperlipidemia Coronary artery disease Benign prostate hyperplasia Plan: Continue aspirin 325 daily and Brilinta 90mg 1 tab bid. I will order a repeat MRI of the brain without to see if there is any new stroke. CT angiography of the head and neck was reported as no significant intercranial and angiographic abnormality. Plaque formation proximal was 50% stenosis origin of the left ICA and 20% of the right ICA. 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 Vascular surgery is on board for the left ICA stenosis and I feel the patient will benefit from surgery. Patient has a PFO and cardiology is consulted for closure. Continue neuro checks Placed on cardiac monitoring PT OT and TISSUE SPECIALIST are consulted Recommend an event monitor for 30 days. Recommend to coordinate prior to discharge. We'll defer the rest of the medical management to primary team The plan is discussed with patient , his daughters and his primary team. Thank you for the consultation. Justus Lui M.D. Neuro-hospitalist Time with Patient: Greater than 30
--- NOTE | 2021-09-03 12:40 | P.CRDCN ---
History of Present Illness History of present illness: HISTORY OF PRESENTING ILLNESS The patient is a 76-year-old male with history of hypertension, hyperlipidemia, Coronary artery disease s/p PCI to LAD in September 2018 (calcified coronary arteries with moderate disease in the second OM and mild disease in the RCA), Recent CVA on 08/29/2021. Patient follows with Dr. Del Angel. We have been consulted for PFO closure at a later day. Patient presents to the ER with complaints of right arm and hand weakness, and right sided facial droop. Patient woke up yesterday, was using an exercise ball in his right hand. He felt his right hand become more weak. Later in the day he was grilling outside, he developed a right sided facial droop and worsening right arm weakness/numbness/felt as if his muscles were cramping. He symptoms have now resolved. He has no history of arrhythmia or atrial fibrillation in the past. He is usually active physically without difficulties. He denies any dizziness or palpitations, No chest pain or shortness of breath. No syncope, no PND or orthopnea. He has no significant valvular disease. Patient recently admitted to the hospital on 08/29/21-08/31/2021 with evidence of CVA, received TPA with improvement in his symptoms. He was started on dual antiplatelet treatment. He was stabilized and discharged home. MAXINE was performed with showed evidence of PFO. CT angiogram showed 50% stenosis of the left internal carotid artery. DIAGNOSTICS EKG reveals sinus rhythm, first-degree AV block, heart rate 64, T wave inversion in lead aVL no acute changes to suggest ischemia Telemetry tracings indicate sinus mechanism Brain CT with no acute intracranial abnormality Laboratory reviewed, CBC unremarkable, troponin negative, sodium 137, potassium 4.3, BUN 19, serum creatinine 1.0, triglycerides 92, cholesterol 43, LDL 63, HDL 61 08/30/2021 Echocardiogram showed a preserved left ventricle size and systolic function 55-60% with no significant valvular disease. Unable to perform bubble studdy 08/31/2021 MAXINE revealed normal systolic function, PFO present, mild mitral and tricuspid regurgitation 08/30/2021 Brain MRI showed focal increased uptake in the left parietal lobe compatible with acute cortical infarct. CT angiogram showed 50% stenosis of the left internal carotid artery. Medications at home : Metoprolol 25 mg twice a day, losartan 50 mg daily, Lipitor 80 mg daily, aspirin 81 mg daily, Brilinta 90mg BID REVIEW OF SYSTEMS At the time of my exam: CONSTITUTIONAL: Denies fever or chills. CARDIOVASCULAR: Denies chest pain, shortness of breath, orthopnea, PND or palpitations. RESPIRATORY: Denies cough. GASTROINTESTINAL: Denies abdominal pain, diarrhea, constipation, nausea or vomiting. MUSCULOSKELETAL: Denies myalgias. NEUROLOGIC: +right arm and hand weakness and numbness, +right facial droop. Denies headache. ENDOCRINE: Denies fatigue, weight change, polydipsia or polyurina. GENITOURINARY: Denies burning, hematuria or urgency with micturation. HEMATOLOGIC: Denies history of anemia or bleeding. PHYSICAL EXAMINATION Vitals reviewed CONSTITUTIONAL: No apparent distress. HEENT: Head is normocephalic. Pupils are equal, round. Sclerae anicteric. Mucous membranes of the mouth are moist. No JVD. No carotid bruit. CHEST EXAMINATION: Lungs are clear to auscultation. No chest wall tenderness is noted on palpation or with deep breathing. HEART EXAMINATION: Regular rate and rhythm. S1, S2 heard. No murmurs, gallops or rub. ABDOMEN: Soft, nontender. Positive bowel sounds. EXTREMITIES: 2+ peripheral pulses, no lower extremity edema and no calf tenderness. NEUROLOGIC EXAMINATION: Patient is awake, alert and oriented x3. ASSESSMENT Acute worsening of right facial droop and right arm/hand weakness Recent CVA left parietal region on 08/29/2021 s/p IV TPA Hypertension Hyperlipidemia Coronary artery disease s/p PCI to LAD in September 2018 (calcified coronary arteries with moderate disease in the second OM and mild disease in the RCA) Carotid Stenosis, 50% with aneurysmal portion PLAN Discussed with neurology, seems likely due to symptomatic Left ICA. Plan for MRI of the brain today. Vascular evaluated the patient and plan for carotid endarterectomy on 09/05/2021. From a cardiology perspective, do not recommend PFO closure at this time, given recurrent symptoms in the same territory, less likely coming from a cardio embolic etiology. We recommend 30 day event monitor prior to discharge. Follow up outpatient with Dr. Del Angel. Nurse practitioner note has been reviewed by physician. Signing provider agrees with the documented findings, assessment, and plan of care. Past Medical History Past Medical History: Hyperlipidemia, Hypertension, Myocardial Infarction (OR) Additional Past Medical History / Comment(s): anemia Last Myocardial Infarction Date:: 2017 History of Any Multi-Drug Resistant Organisms: None Reported Past Surgical History: Heart Catheterization With Stent Additional Past Surgical History / Comment(s): ulcer, right hand surgery Past Anesthesia/Blood Transfusion Reactions: No Reported Reaction Date of Last Stent Placement:: 02/16 Past Psychological History: No Psychological Hx Reported Smoking Status: Never smoker Past Alcohol Use History: None Reported Past Drug Use History: None Reported - Past Family History Father History Unknown: Yes Mother History Unknown: Yes Brother(s) Family Medical History: Unable to Obtain Sister(s) History Unknown: Yes Daughter(s) History Unknown: Yes Son(s) History Unknown: Yes Medications and Allergies Home Medications Medication Instructions Recorded Confirmed Type Aspirin [[place] Aspirin EC] 81 mg PO DAILY 02/14/18 09/02/21 History Metoprolol Tartrate [Lopressor] 25 mg PO BID #60 tab 02/17/18 09/02/21 Rx Nitroglycerin Sl Tabs [Nitrostat] 0.4 mg SUBLINGUAL Q5M PRN #25 tab 02/17/18 09/02/21 Rx Losartan [Cozaar] 50 mg PO DAILY 08/29/21 09/02/21 History Atorvastatin [Lipitor] 80 mg PO HS tab 09/01/21 09/02/21 Rx Ticagrelor [Brilinta] 90 mg PO BID #30 tab 09/01/21 09/02/21 Rx Allergies Allergy/AdvReac Type Severity Reaction Status Date / Time No Known Allergies Allergy Verified 09/02/21 18:06 Physical Exam Vitals: Vital Signs Temp Pulse Pulse Resp BP BP Pulse Ox 09/03/21 07:57 98.7 F 86 16 120/74 97 09/03/21 03:15 98.1 F 55 L 16 132/73 95 09/03/21 03:14 98.1 F 55 L 16 132/73 95 09/03/21 02:00 56 L 17 09/02/21 23:51 97.8 F 56 L 17 167/91 98 09/02/21 23:20 97.8 F 56 L 17 167/91 98 09/02/21 22:57 97.8 F 56 L 17 167/91 98 09/02/21 21:11 97.6 F 82 18 121/87 97 07/04/22 18:10 63 18 128/80 97 09/02/21 17:07 97.9 F 67 20 147/86 99 Intake and Output 09/02/21 09/03/21 09/03/21 22:59 06:59 14:59 Intake Total 600 Balance 600 Intake: Oral 600 Other: Voiding Method Toilet # Voids 2 Weight 88.2 kg Results 09/02/21 17:41 09/02/21 17:41 Cardiac Enzymes 09/02/21 09/02/21 Range/Units 17:41 17:41 AST 49 (17-59) U/L Troponin I <0.012 (0.000-0.034) ng/mL Coagulation 09/02/21 Range/Units 17:41 PT 10.5 (9.0-12.0) sec APTT 23.7 (22.0-30.0) sec CBC 09/02/21 Range/Units 17:41 WBC 6.6 (3.8-10.6) k/uL RBC 4.47 (4.30-5.90) m/uL Hgb 13.6 (13.0-17.5) gm/dL Hct 41.7 (39.0-53.0) % Plt Count 138 L (150-450) k/uL Comprehensive Metabolic Panel 09/02/21 Range/Units 17:41 Sodium 137 (137-145) mmol/L Potassium 4.3 (3.5-5.1) mmol/L Chloride 105 (98-107) mmol/L Carbon Dioxide 26 (22-30) mmol/L BUN 19 (9-20) mg/dL Creatinine 1.05 (0.66-1.25) mg/dL Glucose 107 H (74-99) mg/dL Calcium 9.3 (8.4-10.2) mg/dL AST 49 (17-59) U/L ALT 34 (4-49) U/L Alkaline Phosphatase 88 (38-126) U/L Total Protein 6.9 (6.3-8.2) g/dL Albumin 4.1 (3.5-5.0) g/dL Current Medications Generic Name Dose Route Start Last Admin Trade Name Freq PRN Reason Stop Dose Admin Aspirin 325 mg 09/03/21 09:00 09/03/21 07:59 Aspirin 325 Mg Tab PO 325 mg DAILY RAMY Administration Atorvastatin Calcium 80 mg 09/02/21 21:00 09/02/21 21:10 Atorvastatin 80 Mg Tab PO 80 mg HS RAMY Administration Losartan Potassium 50 mg 09/03/21 09:00 09/03/21 07:59 Losartan 50 Mg Tab PO 50 mg DAILY RAMY Administration Metoprolol Tartrate 25 mg 09/02/21 21:00 09/03/21 07:59 Metoprolol Tartrate 25 Mg Tab PO 25 mg BID RAMY Administration Ticagrelor 90 mg 09/02/21 21:00 09/03/21 07:59 Ticagrelor 90 Mg Tab PO 90 mg BID RAMY Administration Intake and Output 09/02/21 09/03/21 09/03/21 22:59 06:59 14:59 Intake Total 600 Balance 600 Intake: Oral 600 Other: Voiding Method Toilet # Voids 2 Weight 88.2 kg 09/02/21 17:41 09/02/21 17:41
[2021-09-03] MEDS ORDERED: LORazepam 2 MG/ML INJ IV PRN (19:43)
[2021-09-03] MEDS ORDERED: LORazepam 1 MG/0.5 ML VIAL IV PRN (19:47)
[2021-09-03] MEDS: HEPARIN SODIUM,PORCINE/PF 5,000 UNIT/0.5 ML SYRINGE SQ SCH (20:21)
[2021-09-03] MEDS: ATORVASTATIN 80 MG TAB PO SCH (20:21)
[2021-09-04] MEDS: HEPARIN SODIUM,PORCINE/PF 5,000 UNIT/0.5 ML SYRINGE SQ SCH ×2 (09:34→20:00)
[2021-09-04] MEDS: METOPROLOL TARTRATE 25 MG TAB PO SCH ×2 (09:35→20:00)
[2021-09-04] MEDS: TICAGRELOR 90 MG TAB PO SCH ×2 (09:35→20:00)
[2021-09-04] MEDS: FAMOTIDINE 20 MG TAB PO SCH (09:35)
[2021-09-04] MEDS: LOSARTAN 50 MG TAB PO SCH (09:35)
[2021-09-04] MEDS: ASPIRIN 325 MG TAB PO SCH (09:36)
--- NOTE | 2021-09-04 10:56 | P.PN ---
Subjective Progress Note Date: 09/04/21 HISTORY OF PRESENT ILLNESS 76-year-old male one of my office patient with known for long time with multiple medical problem known to have history of anemia with iron deficiency, history of hypertension, history of CAD post angioplasty and stent placement 3 years ago, history of hyper and severe gastroesophageal reflux disease with peptic ulcer disease post stomach surgery. 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 Patient underwent MAXINE that showed a small PFO with [id number] shunt and also carotid ultrasound revealed right carotid artery disease of 50-69%. Patient was discharged home in stable condition. Patient had developed sudden onset of tingling and his fingers and weakness as well as facial droop. He states he was using a stress ball and he could notice a difference. Patient return to the emergency center for further evaluation. Patient was found to be afebrile, heart rate in the 60s, blood pressure 147/86, pulse ox 99% on room air. EKG was a sinus rhythm with no acute ST changes. CBC revealed platelet count of 138. Electrolytes and renal function normal. Blood sugar 107. Liver function tests were normal. Troponin negative. CT angiogram of the head and neck revealed no significant abnormality. Plaque formation approximately 50% stenosis of the left internal carotid artery and 20% stenosis of the right. 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 CAT scan of the brain showed no acute intracranial abnormality. Cerebral atrophy. Patient admitted to the cardiac stepdown unit and consult in place with vascular surgery with plan for left carotid endarterectomy on . Consult added for cardiology regarding PFO which will require probable closure at a later date. 09/04: Patient is found in his room standing and ambulating. No significant weakness. No new complaints from the patient. He is scheduled for carotid endarterectomy tomorrow. MRI of the brain ordered by neurology is currently pending. Patient has been seen by cardiology and event monitor has been ordered. We will plan outpatient follow-up with Dr. Del Angel regarding PFO closure at a later time. REVIEW OF SYSTEMS Constitutional: No fever, no chills, no night sweats. No weight change. No weakness, fatigue or lethargy. No daytime sleepiness. EENT: No headache. No blurred vision or double vision, no loss of vision. No loss of Hearing, no ringing in the ears, no dizziness. No nasal drainage or congestion. No epistaxis. No sore throat.positive droopy face. Lungs: No shortness of breath, cough, no sputum production. No wheezing. Cardiovascular: No chest pain, no lower extremity edema. No palpitations. No paroxysmal nocturnal dyspnea. No orthopnea. No lightheadedness or dizziness. No syncopal episodes. Abdominal: No abdominal pain. No nausea, vomiting. No diarrhea. No constipation. No bloody or tarry stools.. No loss of appetite. Genitourinary: No dysuria, increased frequency, urgency. No urinary retention. Musculoskeletal: No myalgias. No muscle weakness, no gait dysfunction, no frequent falls. No back pain. No neck pain. Integumentary: No wounds, no lesions. No rash or pruritus. No unusual bruising. No change in hair or nails. Neurologic: Tingling and weakness and the right arm, facial droop Psychiatric: No depression. No anxiety. No mood swings. Endocrine: No abnormal blood sugars. No weight change. No excessive sweating or thirst. No cold intolerance. PHYSICAL EXAMINATION Gen: This is well-developed laying in bed no acute respiratory distress. HEENT: Head is atraumatic, normocephalic. Pupils equal, round. Sclerae is anict hardik. positive asymmetry face with slight droopy face and the right side. NECK: Supple. No JVD. No lymphadenopathy. No thyromegaly. LUNGS: Clear to auscultation. No wheezes or rhonchi. No intercostal retractions. HEART: Regular rate and rhythm. No murmur. ABDOMEN: Soft. Bowel sounds are present. No masses. No tenderness. EXTREMITIES: No pedal edema. No calf tenderness. NEUROLOGICAL: Patient is awake, alert and oriented x3. Cranial nerves 2 through 12 grossly intact. No right sided upper or lower extremity weakness. ASSESSMENT AND PLAN -Acute CVA affecting the left mid cerebral artery presenting with extension of CVA. Continue patient on aspirin 325 mg daily, Lipitor 80 mg daily, Proventil 90 mg twice daily. Consult with vascular surgery appreciated, plan for left carotid endarterectomy on . MRI of the brain is pending. Cardiology has ordered event monitor. PFO with [id number] shunt. Cardiology consult appreciated. Follow with Dr. Del Angel. Recent acute CVA status post TPA. -Hypertension. Continue losartan 50 mg daily, Lopressor 25 mg twice daily. - Atherosclerotic heart disease: Post angioplasty and stent placement from January 2018 for the mid LAD, still seeing cardiology regular basis has been on secondary prevention apparently was and see cardiology recently. - Chronic history of iron deficiency anemia with history of gastrectomy. Hemoglobin stable. - Hyperlipidemia: Resume atorvastatin. - BPH: Watch patient for any urinary retention if need Flomax can be used. - Thrombocytopenia: With no sign and symptom of any pancytopenia this point continue conservative management only. - GI prophylaxis: Patient be on Pepcid. - DVT prophylaxis: Knee-high GLORIA hose and Venodyne boots will be used. CODE STATUS: Full code DISCHARGE PLAN home Impression and plan of care have been directed as dictated by the signing physician. Leonora Dominguez nurse practitioner acting as scribe for signing damon [email or web address]. Objective - Vital Signs Vital signs: Vital Signs Temp 98.1 F 09/04/21 04:00 Pulse 57 L 09/04/21 04:00 Resp 18 09/04/21 04:00 BP 128/71 09/04/21 04:00 Pulse Ox 96 09/04/21 04:00 FiO2 Intake & Output 09/03/21 09/04/21 09/04/21 18:59 06:59 18:59 Intake Total 720 Balance 720 Intake: Oral 720 Other: Voiding Method Toilet Toilet # Voids 2 2 - Labs CBC & Chem 7: 09/02/21 17:41 09/02/21 17:41 Labs: Abnormal Lab Results - Last 24 Hours (Table) 09/03/21 Range/Units 06:34 HDL Cholesterol 61.00 H (40.00-60.00) mg/dL
--- NOTE | 2021-09-04 12:21 | P.PN ---
Subjective Progress Note Date: 09/04/21 The patient is seen at bedside and feels about the same. Denies of any new neurological issues. Objective - Vital Signs Vital signs: Vital Signs Temp 97.8 F 09/04/21 08:00 Pulse 75 09/04/21 08:00 Resp 16 09/04/21 08:00 BP 137/86 09/04/21 08:00 Pulse Ox 96 09/04/21 08:00 FiO2 Intake & Output 09/03/21 09/04/21 09/04/21 18:59 06:59 18:59 Intake Total 720 240 Balance 720 240 Intake: Oral 720 240 Other: Voiding Method Toilet Toilet Toilet # Voids 2 2 - Exam GENERAL: The patient is sitting in chair and is not in acute distress. NEUROLOGICAL: Higher mental function: The patient is awake, alert, oriented to self, place and time. Patient is following commands. No aphasia and no neglect. Cranial nerves: The pupils are round, equal and reactive to light and accommodation. Visual armas are full to confrontation throughout. Extraocular movement is intact no nystagmus is noted. Facial sensation is normal to touch throughout. The facial strength is mild right facial droop. Hearing is normal bilaterally to hand rub. Tongue is midline and moved [id number] without any difficulty. No dysarthria is noted. Shoulder shrug is normal bilaterally. Motor: Gait is normal. The strength is right hand facilities manager and wrist strength is 4+. Otherwise 5 over 5 throughout. Normal tone and bulk. Cerebellum: Normal finger to nose bilaterally. Sensation: Sensation is slightly decreased to touch over the right distal upper extremity. Otherwise normal to touch throughout. Reflexes (right/left): 2+ throughout Plantars are downgoing bilaterally. Some of the workup during this hospital visit consisted off Lipid panel: TG 92, Cholestrol 143, LDL 63 and HDL 61 CBC and chemistry panel were reviewed and they seemed unremarkable other than the platelets was 138,000. CT of the head is reported as cerebral atrophy. No acute intracranial abnormality. No change. I personally reviewed the CT of the head and there is no acute subacute ischemia. The patient has the risks residual old left frontal parietal seems more subacute to chronic from his recent stroke prior admission. CT angiography of the head and neck was reported as no significant intercranial and angiographic abnormality. Plaque formation proximal was 50% stenosis origin of the left ICA and 20% of the right ICA. 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 - Labs CBC & Chem 7: 09/02/21 17:41 09/02/21 17:41 Assessment and Plan Assessment: Acute worsening of right facial droop and hand weakness: TIA. Seems likely due to symptomatic Left ICA. Recent left parietal region status post IV TPA at the end of July 2021 with residual mild right facial weakness and right hand weakness Left ICA stenosis 50% per CTA +positive PFO on recent MAXINE Diabetes Hypertension Hyperlipidemia Coronary artery disease Benign prostate hyperplasia Plan: Continue aspirin 325 daily and Brilinta 90mg 1 tab bid. pending repeat MRI of the brain without to see if there is any new stroke. CT angiography of the head and neck was reported as no significant intercranial and angiographic abnormality. Plaque formation proximal was 50% stenosis origin of the left ICA and 20% of the right ICA. 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 Vascular surgery is on board for the left ICA stenosis and I feel the patient will benefit from surgery. He is schedule for carotid endartectomy tomorrow. Patient has a PFO and cardiology is consulted for closure. They will hold off for now and to be addressed down the line if needed. Continue neuro checks Placed on cardiac monitoring PT OT and CLINICAL PHARMACY TECHNICIAN are consulted Recommend an event monitor for 30 days. Recommend to coordinate prior to discharge. We'll defer the rest of the medical management to primary team The plan is discussed with patient and his primary team. Justus Lui M.D. Neuro-hospitalist Time with Patient: Less than 30
--- NOTE | 2021-09-04 15:24 | P.PN ---
Subjective Progress Note Date: 09/04/21 Patient seen and examined. No complaints. Overall feeling well. Awaiting MRI. Objective - Vital Signs Vital signs: Vital Signs Temp 97.7 F 09/04/21 12:00 Pulse 60 09/04/21 12:00 Resp 18 09/04/21 12:00 BP 145/93 09/04/21 12:00 Pulse Ox 96 09/04/21 12:00 FiO2 Intake & Output 09/03/21 09/04/21 09/04/21 18:59 06:59 18:59 Intake Total 720 358 Balance 720 358 Intake: Oral 720 358 Other: Voiding Method Toilet Toilet Toilet # Voids 2 2 - Exam No acute distress resting comfortably. Family at the bedside. HEENT normocephalic. Heart appears regular. Lungs are clear. Abdomen soft. Extremities without clubbing cyanosis or edema. - Labs CBC & Chem 7: 09/02/21 17:41 09/02/21 17:41 Assessment and Plan Assessment: ? Symptomatic left internal carotid artery stenosis PFO Plan: Plan for left carotid endarterectomy 09/05/2021. Risks and benefits discussed with the patient with family. Nothing by mouth after midnight.
[2021-09-04] MEDS ORDERED: LORazepam 1 MG/0.5 ML VIAL IV PRN (16:00)
--- NOTE | 2021-09-04 17:00 | MR ---
EXAMINATION TYPE: MR brain wo con DATE OF EXAM: 09/04/2021 COMPARISON: 08/30/2021 HISTORY: Worsening right hand weakness Multiplanar multiecho imaging of the brain with no contrast. There is diffuse cerebral atrophy. There is coalescent increased signal in the periventricular white matter on the T2 and FLAIR images. Areas measure up to 1 cm in thickness. There is no midline shift. No mass effect brainstem is intact. There is mild thinning of the corpus callosum. Diffusion images s how no sign of an acute infarct. There is some cortical increased signal in the left parietal lobe me asuring up to 6 mm in thickness and consistent with small infarct that measures 2 cm. There is no evidence of orbital mass. Sella turcica appears normal. IMPRESSION: Diffuse cervical atrophy. 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 There is subacute or old small cortical infarct left parietal lobe. No change co mpared to recent exam.
[2021-09-04] MEDS: ATORVASTATIN 80 MG TAB PO SCH (20:00)
[2021-09-05] MEDS: ASPIRIN 325 MG TAB PO SCH (07:06)
[2021-09-05] MEDS: FAMOTIDINE 20 MG TAB PO SCH (07:06)
[2021-09-05] MEDS: METOPROLOL TARTRATE 25 MG TAB PO SCH ×2 (07:06→21:25)
[2021-09-05] MEDS: LOSARTAN 50 MG TAB PO SCH (07:07)
[2021-09-05] MEDS: HEPARIN SODIUM,PORCINE/PF 5,000 UNIT/0.5 ML SYRINGE SQ SCH ×2 (07:50→20:11)
[2021-09-05] MEDS: TICAGRELOR 90 MG TAB PO SCH ×2 (07:51→20:10)
[2021-09-05] MEDS ORDERED: PHENYLEPHRINE 40 MG in SODIUM CHLORIDE 0.9% 250 ML IV SCH (08:58)
[2021-09-05] MEDS ORDERED: NITROGLYCERIN-D5W PMX 50 MG in DEXTROSE/WATER 1 250ML.BAG IV SCH (08:58)
[2021-09-05] MEDS ORDERED: LACTATED RINGERS 1,000 ML IV SCH (08:58)
[2021-09-05] MEDS ORDERED: LACTATED RINGERS 1,000 ML IV ONE ×4 (09:20→12:14)
[2021-09-05] MEDS ORDERED: ONDANSETRON 4 MG/2 ML VIAL IVP ONE (09:30)
[2021-09-05] MEDS ORDERED: MIDAZOLAM 2 MG/2 ML VIAL IV ONE (09:30)
[2021-09-05] MEDS ORDERED: DEXAMETHASONE SOD PHOSPHATE 4 MG/ML 1 ML VIAL IV ONE (09:31)
[2021-09-05] MEDS ORDERED: PROTAMINE SULFATE 10 MG/ML 5 ML VIAL IV ONE (09:58)
[2021-09-05] MEDS ORDERED: NEOSTIGMINE 1 MG/ML 10 ML VIAL ONE (09:58)
[2021-09-05] MEDS ORDERED: LIDOCAINE 2% INJ 20 MG/ML (2 ML VIAL) ONE (09:58)
[2021-09-05] MEDS ORDERED: SUCCINYLCHOLINE CHLORIDE 100 MG/5 ML SYR IV ONE (09:58)
[2021-09-05] MEDS ORDERED: PHENYLEPHRINE-0.9% NACL SYG 1,000 MCG/10 ML SYRINGE ONE (09:58)
[2021-09-05] MEDS ORDERED: ROCURONIUM 10 MG/ML (5 ML VIAL) IV ONE (09:58)
[2021-09-05] MEDS ORDERED: LABETALOL 5 MG/ML VIAL MDV ONE (09:58)
[2021-09-05] MEDS ORDERED: LIDOCAINE 4% LTA KIT (4 ML) TOPICAL ONE (09:58)
[2021-09-05] MEDS ORDERED: fentaNYL (PF) 50 MCG/ML 2 ML AMP ONE (09:58)
[2021-09-05] MEDS ORDERED: GLYCOPYRROLATE 0.2 MG/ML 2 ML VIAL ONE (09:58)
[2021-09-05] MEDS ORDERED: PROPOFOL 10 MG/ML 20 ML VIAL IV ONE (09:58)
[2021-09-05] MEDS ORDERED: HEPARIN SODIUM,PORCINE 10,000 UNIT/ML 1 ML VIAL ONE (09:58)
[2021-09-05] MEDS ORDERED: ePHEDrine 50 MG/ML 1 ML VIAL ONE (09:58)
[2021-09-05] MEDS ORDERED: SODIUM CHLORIDE 0.9% 100 ML with ceFAZolin 2,000 MG IV ONE ×2 (10:20)
--- NOTE | 2021-09-05 10:26 | P.PN ---
Subjective Progress Note Date: 09/05/21 HISTORY OF PRESENT ILLNESS 76-year-old male one of my office patient with known for long time with multiple medical problem known to have history of anemia with iron deficiency, history of hypertension, history of CAD post angioplasty and stent placement 3 years ago, history of hyper and severe gastroesophageal reflux disease with peptic ulcer disease post stomach surgery. 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 Patient underwent MAXINE that showed a small PFO with [id number] shunt and also carotid ultrasound revealed right carotid artery disease of 50-69%. Patient was discharged home in stable condition. Patient had developed sudden onset of tingling and his fingers and weakness as well as facial droop. He states he was using a stress ball and he could notice a difference. Patient return to the emergency center for further evaluation. Patient was found to be afebrile, heart rate in the 60s, blood pressure 147/86, pulse ox 99% on room air. EKG was a sinus rhythm with no acute ST changes. CBC revealed platelet count of 138. Electrolytes and renal function normal. Blood sugar 107. Liver function tests were normal. Troponin negative. CT angiogram of the head and neck revealed no significant abnormality. Plaque formation approximately 50% stenosis of the left internal carotid artery and 20% stenosis of the right. 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 CAT scan of the brain showed no acute intracranial abnormality. Cerebral atrophy. Patient admitted to the cardiac stepdown unit and consult in place with vascular surgery with plan for left carotid endarterectomy on . Consult added for cardiology regarding PFO which will require probable closure at a later date. 09/04: Patient is found in his room standing and ambulating. No significant weakness. No new complaints from the patient. He is scheduled for carotid endarterectomy tomorrow. MRI of the brain ordered by neurology is currently pending. Patient has been seen by cardiology and event monitor has been ordered. We will plan outpatient follow-up with Dr. Del Angel regarding PFO closure at a later time. 09/05: Patient has left for surgery. He has remained afebrile, heart rate in the 50s and 60s, blood pressure 159/93 and pulse ox 95% on room air. Patient's family have been updated. MRI of the brain revealed diffuse cerebral atrophy. White matter changes consistent with extensive microvascular ischemia or demyelinating disease. There is subacute or old small cortical infarct left parietal lobe. No change compared to recent exam. REVIEW OF SYSTEMS Constitutional: No fever, no chills, no night sweats. No weight change. No weakness, fatigue or lethargy. No daytime sleepiness. EENT: No headache. No blurred vision or double vision, no loss of vision. No loss of Hearing, no ringing in the ears, no dizziness. No nasal drainage or congestion. No epistaxis. No sore throat.positive droopy face. Lungs: No shortness of breath, cough, no sputum production. No wheezing. Cardiovascular: No chest pain, no lower extremity edema. No palpitations. No paroxysmal nocturnal dyspnea. No orthopnea. No lightheadedness or dizziness. No syncopal episodes. Abdominal: No abdominal pain. No nausea, vomiting. No diarrhea. No constipation. No bloody or tarry stools.. No loss of appetite. Genitourinary: No dysuria, increased frequency, urgency. No urinary retention. Musculoskeletal: No myalgias. No muscle weakness, no gait dysfunction, no frequent falls. No back pain. No neck pain. Integumentary: No wounds, no lesions. No rash or pruritus. No unusual bruising. No change in hair or nails. Neurologic: Tingling and weakness and the right arm, facial droop-resolved Psychiatric: No depression. No anxiety. No mood swings. Endocrine: No abnormal blood sugars. No weight change. No excessive sweating or thirst. No cold intolerance. PHYSICAL EXAMINATION Gen: This is well-developed laying in bed no acute respiratory distress. HEENT: Head is atraumatic, normocephalic. Pupils equal, round. Sclerae is anicteric. NECK: Supple. No JVD. No lymphadenopathy. No thyromegaly. LUNGS: Clear to auscultation. No wheezes or rhonchi. No intercostal retractions. HEART: Regular rate and rhythm. No murmur. ABDOMEN: Soft. Bowel sounds are present. No masses. No tenderness. EXTREMITIES: No pedal edema. No calf tenderness. NEUROLOGICAL: Patient is awake, alert and oriented x3. Cranial nerves 2 through 12 grossly intact. No right sided upper or lower extremity weakness. ASSESSMENT AND PLAN -Acute CVA affecting the left mid cerebral artery presenting with extension of CVA. Continue patient on aspirin 325 mg daily, Lipitor 80 mg daily, Brilinta 90 mg twice daily. Consult with vascular surgery appreciated, left carotid endarterectomy today. MRI of the brain as above. Cardiology has ordered event monitor. PFO with [id number] shunt. Cardiology consult appreciated. Follow with Dr. Del Angel. Recent acute CVA status post TPA. -Hypertension. Continue losartan 50 mg daily, Lopressor 25 mg twice daily. - Atherosclerotic heart disease: Post angioplasty and stent placement from January 2018 for the mid LAD, still seeing cardiology regular basis has been on secondary prevention apparently was and see cardiology recently. - Chronic history of iron deficiency anemia with history of gastrectomy. Hemoglobin stable. - Hyperlipidemia: Resume atorvastatin. - BPH: Watch patient for any urinary retention if need Flomax can be used. - Thrombocytopenia: With no sign and symptom of any pancytopenia this point continue conservative management only. - GI prophylaxis: Patient be on Pepcid. - DVT prophylaxis: Knee-high GLORIA hose and Venodyne boots will be used. CODE STATUS: Full code DISCHARGE PLAN home Impression and plan of care have been directed as dictated by the signing physician. Leonora Dominguez nurse practitioner acting as scribe for signing physician. Objective - Vital Signs Vital signs: Vital Signs Temp 97.9 F 09/05/21 07:54 Pulse 52 L 09/05/21 07:54 Resp 16 09/05/21 07:54 BP 137/84 09/05/21 07:54 Pulse Ox 97 09/05/21 07:54 FiO2 Intake & Output 09/04/21 09/05/21 09/05/21 18:59 06:59 18:59 Intake Total 358 Balance 358 Intake: Oral 358 Other: Voiding Method Toilet Toilet # Voids 2 1 - Labs CBC & Chem 7: 09/02/21 17:41 09/02/21 17:41
[2021-09-05] MEDS ORDERED: HEPARIN SODIUM,PORCINE 2,000 UNIT in SODIUM CHLORIDE 0.9% 500 ML 1,000 ML IRRIGATION ONE (10:48)
[2021-09-05] MEDS ORDERED: ceFAZolin 2 GM in SODIUM CHLORIDE 0.9% 500 ML 500 ML IRRIGATION ONE (10:48)
[2021-09-05] MEDS ORDERED: LIDOCAINE 1% INJ 10MG/ML (20 ML MDV) SQ ONE (10:59)
--- NOTE | 2021-09-05 11:43 | P.PN ---
Subjective Progress Note Date: 09/05/21 The patient is seen at bedside and feels about the same. Denies of any new neurological issues. He is scheduled for endarectomy today. Objective - Vital Signs Vital signs: Vital Signs Temp 97.5 F L 09/05/21 09:15 Pulse 64 09/05/21 09:32 Resp 14 09/05/21 09:32 BP 167/92 09/05/21 09:15 Pulse Ox 93 L 09/05/21 09:32 FiO2 Intake & Output 09/04/21 09/05/21 09/05/21 18:59 06:59 18:59 Intake Total 358 500 Balance 358 500 Intake: IV 500 Oral 358 Other: Voiding Method Toilet Toilet # Voids 2 1 - Exam GENERAL: The patient is sitting in chair and is not in acute distress. NEUROLOGICAL: Higher mental function: The patient is awake, alert, oriented to self, place and time. Patient is following commands. No aphasia and no neglect. Cranial nerves: The pupils are round, equal and reactive to light and accommodat ion. Visual armas are full to confrontation throughout. Extraocular movement is intact no nystagmus is noted. Facial sensation is normal to touch throughout. The facial strength is mild right facial droop. Hearing is normal bilaterally to hand rub. Tongue is midline and moved [id number] w ithout any difficulty. No dysarthria is noted. Shoulder shrug is normal bilaterally. Motor: Gait is normal. 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 Otherwise 5 over 5 throughout. Normal tone and bulk. Cerebellum: Normal finger to nose bilaterally. Sensation: Sensation is slightly decreased to touch over the right distal upper extremity. Otherwise normal to touch throughout. Reflexes (right/left): 2+ throughout Plantars are downgoing bilaterally. Some of the workup during this hospital visit consisted off Lipid panel: TG 92, Cholestrol 143, LDL 63 and HDL 61 CBC and chemistry panel were reviewed and they seemed unremarkable other than the platelets was 138,000. CT of the head is reported as cerebral atrophy. No acute intracranial abnormality. No change. I personally reviewed the CT of the head and there is no acute subacute ischemia. The patient has the risks residual old left frontal parietal seems more subacute to chronic from his recent stroke prior admission. CT angiography of the head and neck was reported as no significant intercranial and angiographic abnormality. Plaque formation proximal was 50% stenosis origin of the left ICA and 20% of the right ICA. 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 MRI Brain is reported as white matter changes consistent with extensive microvascular ischemia or do mind disease. There subacute or old small cortical infarct over the left parietal lobe. No change compared to recent exam. I reviewed the MRI and I do agree the finding is consistent with the previous MRI on the prior admission. - Labs CBC & Chem 7: 09/02/21 17:41 09/02/21 17:41 Assessment and Plan Assessment: Acute worsening of right facial droop and hand weakness: TIA. Seems likely due to symptomatic Left ICA. Recent left parietal region status post IV TPA at the end of July 2021 with residual mild right facial weakness and right hand weakness Left ICA stenosis 50% per CTA +positive PFO on recent MAXINE Diabetes Hypertension Hyperlipidemia Coronary artery disease Benign prostate hyperplasia Plan: Continue aspirin 325 daily and Brilinta 90mg [address] angiography of the head and neck was reported as no significant intercranial and angiographic abnormality. Plaque formation proximal was 50% stenosis origin of the left ICA and 20% of the right ICA. 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 Vascular surgery is on board for the left ICA stenosis. He is schedule for carotid endartectomy today. Patient has a PFO and cardiology is consulted for closure. They will hold off for now and to be addressed down the line if needed. Continue neuro checks Placed on cardiac monitoring PT OT and HAND DRILLER are consulted Recommend an event monitor for 30 days. Recommend to coordinate prior to discharge. We'll defer the rest of the medical management to primary team The plan is discussed with patient and his primary team. Justus Lui M.D. Neuro-hospitalist Time with Patient: Less than 30
[2021-09-05] MEDS ORDERED: THROMBIN (BOVINE) 5,000 UNIT VIAL TOPICAL ONE (11:47)
[2021-09-05] MEDS ORDERED: GELATIN SPONGE,ABSORB (LARGE) 1 EACH SPONGE TOPICAL ONE (11:47)
--- NOTE | 2021-09-05 12:34 | P.ANPRN ---
Procedure Note - Anesthesia - Invasive Line Left Arterial Line Time Out Performed: Yes Date of Procedure: 09/05/21 Time of Procedure: 09:29 Location of Patient: PreOp Preparation: Sterile Prep, Sterile Dressing Arterial Line Location: Radial Ultrasound Used: No Purpose - Visualization and Identification of Vasculature: No Needle Guage: sterile protocol Image Stored and Saved: No Narrative: Central line placement per sterile protocol utilized.
--- NOTE | 2021-09-05 13:09 | P.OP ---
Date of Procedure: 09/05/21 Description of Procedure: Preoperative Diagnosis: Symptomatic left Internal carotid artery stenosis Postoperative Diagnosis: Same Procedure: Left carotid endarterectomy with patch angioplasty Anesthesia: GET Surgeon: Nasra Horne DO Estimated Blood Loss (ml): 30 mL IV Fluids: See records Urine Output: See records Specimen: #1 carotid plaque #2 cervical lymph node Condition: stable Disposition: PACU Findings and indications: Patient is a 76-year-old male who was found to have symptomatic left ICA stenosis recurrent symptoms. His computed tomography scan was consistent with approximately 50% stenosis however the plaque itself appeared very atheromatous in nature and almost appearing like a plaque rupture. Given his recurrent symptoms, it was decided to go forward with intervention and revascularization. Risks and benefits of a carotid endarterectomy were discussed. He seemingly understood and was willing to proceed. Procedure in detail: After written informed consent was obtained the patient all risks benefits and competitions were described the patient is brought to the operative suite and laid in a supine position. The area of the neck was prepped and draped in usual sterile fashion after appropriate anesthetic was performed per the anesthesiologist. A timeout was performed in normal fashion antibiotics were administered prior to incision. An oblique incision was then created just anterior to the sternocleidomastoid musculature with a 10 blade scalpel and dissection was carried down to the carotid sheath. The carotid sheath was then entered after facial vein was located and suture ligated in normal fashion. Attention was initially made toward the internal carotid artery. It was clamped early due to the soft- appearing nature of the plaque. The common carotid, internal carotid, external carotid and superior thyroid arteries were located and dissected free in a meticulous fashion circumferentially and controlled with vessel loops. Attention was then placed to locating the vagus nerve as well as hypoglossal nerve which were both spared. Once controlled, patient was administered heparin and followed with ACTs for appropriate heparinization. Once ACT was appropriate, the proximal and distal aspects of the dissection were then controlled with vascular clamps. Arteriotomy was then created with 11 blade scalpel and extended with Rodas Hong scissors. Utilizing pressure tubing stump pressures were obtained and were greater than 70. No shunt was required. An endarterectomy was then performed with a Hatfield elevator. The plaque was transected proximally and then feathered at the distal aspect of the internal carotid artery and removed. Due to the distal portion of the plaque look, it was tacked in place with interrupted sutures of 7-0 Prolene The area was copiously irrigated with heparinized saline and all free debris was removed. A 0.8 x 8 cm bovine pericardial patch was then chosen and patch angioplasty was performed with 6-0 Prolene suture in a running fashion. Prior to last sutures being placed the inflow was released flushing any free debris out of the patch. This was reclamped and the internal carotid artery was released revealing good brisk flow and was once again reclamped. The external carotid and superior thyroid artery were then released followed by the common carotid artery to allow any free debris to be flushed into the external system. Final sutures were placed and secured. Internal carotid artery control was then released. Good pulsatile flow was noted through the patch and a Doppler was utilized demonstrating good brisk flow into the internal, external carotid arteries without any signs of obstruction. Hemostasis was then assured with interrupted sutures of 6-0 Prolene as well as thrombin and Gelfoam. A 10-[place] MEGAN drain was then placed in normal fashion and secured with 3-0 nylon suture. The incision was then closed in a multilayer fashion after hemostasis was assured. The skin was then cleansed and dressings were placed. Patient tolerated the procedure well and was following commands and moving all extremities. Patient was then sent to PACU for recovery.
[2021-09-05] MEDS ORDERED: BENZOCAINE/MENTHOL LOZENG 1 EACH LOZENGE MUCOUS MEM PRN (13:35)
[2021-09-05 16:56] LABS: Glucose,Whole Blood 213 mg/dL (70-110)
[2021-09-05] MEDS: SODIUM CHLORIDE 0.9% 1,000 ML IV SCH (17:00)
[2021-09-05] MEDS: PHENYLEPHRINE 40 MG in SODIUM CHLORIDE 0.9% 250 ML IV SCH (18:39)
[2021-09-05] MEDS: ATORVASTATIN 80 MG TAB PO SCH (20:10)
[2021-09-06] MEDS: SODIUM CHLORIDE 0.9% 1,000 ML IV SCH (04:18)
[2021-09-06 05:14] LABS: Basophils % (A) 0 %; Eosinophils # (A) 0.1 k/uL (0-0.7); Eosinophils % (A) 1 %; HCT 37.2 % (39.0-53.0); HGB 12.2 gm/dL (13.0-17.5); Lymphocytes # (A) 1.6 k/uL (1.0-4.8); Lymphocytes % (A) 17 %; MCH 31.5 pg (25.0-35.0); MCHC 32.8 g/dL (31.0-37.0); Mean Platelet Volume 9.3; Monocytes # (A) 0.6 k/uL (0-1.0); Monocytes % (A) 6 %; Neutrophils # (A) 6.8 k/uL (1.3-7.7); Neutrophils % (A) 73 %; Platelet Count 209 k/uL (150-450); RBC 3.88 m/uL (4.30-5.90); RDW 13.9 % (11.5-15.5); WBC 9.2 k/uL (3.8-10.6)
[2021-09-06 05:20] LABS: African American GFR (CKD) >90 (>60 ml/min/1.73 sqM); Anion Gap 3 mmol/L; Blood Urea Nitrogen 12 mg/dL (9-20); Calcium 8.7 mg/dL (8.4-10.2); Carbon Dioxide 23 mmol/L (22-30); Chloride 110 mmol/L (98-107); Glucose 163 mg/dL (74-99); Non-African American GFR(CKD) 86 (>60 ml/min/1.73 sqM); Sodium 136 mmol/L (137-145)
[2021-09-06] MEDS: TICAGRELOR 90 MG TAB PO SCH ×2 (08:15→21:10)
[2021-09-06] MEDS: ASPIRIN 325 MG TAB PO SCH (08:15)
[2021-09-06] MEDS: HEPARIN SODIUM,PORCINE/PF 5,000 UNIT/0.5 ML SYRINGE SQ SCH ×2 (08:15→21:09)
[2021-09-06] MEDS: FAMOTIDINE 20 MG TAB PO SCH (08:15)
[2021-09-06] MEDS: PHENYLEPHRINE 40 MG in SODIUM CHLORIDE 0.9% 250 ML IV SCH (08:16)
[2021-09-06] MEDS: METOPROLOL TARTRATE 25 MG TAB PO SCH ×2 (08:18→21:10)
[2021-09-06] MEDS: LOSARTAN 50 MG TAB PO SCH (08:18)
--- NOTE | 2021-09-06 10:36 | P.PN ---
Subjective Progress Note Date: 09/06/21 HISTORY OF PRESENT ILLNESS 76-year-old male one of my office patient with known for long time with multiple medical problem known to have history of anemia with iron deficiency, history of hypertension, history of CAD post angioplasty and stent placement 3 years ago, history of hyper and severe gastroesophageal reflux disease with peptic ulcer disease post stomach surgery. 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 Patient underwent MAXINE that showed a small PFO with zyrgi-eg-copw shunt and also carotid ultrasound revealed right carotid artery disease of 50-69%. Patient was discharged home in stable condition. Patient had developed sudden onset of tingling and his fingers and weakness as well as facial droop. He states he was using a stress ball and he could notice a difference. Patient return to the emergency center for further evaluation. Patient was found to be afebrile, heart rate in the 60s, blood pressure 147/86, pulse ox 99% on room air. EKG was a sinus rhythm with no acute ST changes. CBC revealed platelet count of 138. Electrolytes and renal function normal. Blood sugar 107. Liver function tests were normal. Troponin negative. CT angiogram of the head and neck revealed no significant abnormality. Plaque formation approximately 50% stenosis of the left internal carotid artery and 20% stenosis of the right. 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 CAT scan of the brain showed no acute intracranial abnormality. Cerebral atrophy. Patient admitted to the cardiac stepdown unit and consult in place with vascular surgery with plan for left carotid endarterectomy on . Consult added for cardiology regarding PFO which will require probable closure at a later date. 09/04: Patient is found in his room standing and ambulating. No significant weakness. No new complaints from the patient. He is scheduled for carotid endarterectomy tomorrow. MRI of the brain ordered by neurology is currently pending. Patient has been seen by cardiology and event monitor has been ordered. We will plan outpatient follow-up with Dr. Del Angel regarding PFO closure at a later time. 09/05: Patient has left for surgery. He has remained afebrile, heart rate in the 50s and 60s, blood pressure 159/93 and pulse ox 95% on room air. Patient's family have been updated. MRI of the brain revealed diffuse cerebral atrophy. White matter changes consistent with extensive microvascular ischemia or demyelinating disease. There is subacute or old small cortical infarct left parietal lobe. No change compared to recent exam. 09/06: Patient is seen today in the intensive care unit postop day #1 left carotid endarterectomy with patch angioplasty performed by Dr. Horne with recommendations for Brilinta and aspirin. He has not been out of bed as of yet. He has slight weakness on the right upper extremity. Blood pressure to be maintained between 120 and 180 currently on Virgil-Synephrine drip per vascular surgery. traffic monitor specialist sinus rhythm. Repeat blood work reveals hemoglobin 12.2. Creatinine 0.86. REVIEW OF SYSTEMS Constitutional: No fever, no chills, no night sweats. No weight change. No weakness, fatigue or lethargy. No daytime sleepiness. EENT: No headache. No blurred vision or double vision, no loss of vision. No loss of Hearing, no ringing in the ears, no dizziness. No nasal drainage or congestion. No epistaxis. No sore throat.positive droopy face. Lungs: No shortness of breath, cough, no sputum production. No wheezing. Cardiovascular: No chest pain, no lower extremity edema. No palpitations. No paroxysmal nocturnal dyspnea. No orthopnea. No lightheadedness or dizziness. No syncopal episodes. Abdominal: No abdominal pain. No nausea, vomiting. No diarrhea. No constipation. No bloody or tarry stools.. No loss of appetite. Genitourinary: No dysuria, increased frequency, urgency. No urinary retention. Musculoskeletal: No myalgias. No muscle weakness, no gait dysfunction, no frequent falls. No back pain. No neck pain. Integumentary: No wounds, no lesions. No rash or pruritus. No unusual bruising. No change in hair or nails. Neurologic: Tingling and weakness and the right arm, facial droop-resolved Psychiatric: No depression. No anxiety. No mood swings. Endocrine: No abnormal blood sugars. No weight change. No excessive sweating or thirst. No cold intolerance. PHYSICAL EXAMINATION Gen: This is well-developed laying in bed no acute respiratory distress. HEENT: Head is atraumatic, normocephalic. Pupils equal, round. Sclerae is anicteric. NECK: Supple. No JVD. No lymphadenopathy. No thyromegaly. LUNGS: Clear to auscultation. No wheezes or rhonchi. No intercostal retractions. HEART: Regular rate and rhythm. No murmur. ABDOMEN: Soft. Bowel sounds are present. No masses. No tenderness. EXTREMITIES: No pedal edema. No calf tenderness. NEUROLOGICAL: Patient is awake, alert and oriented x3. Cranial nerves 2 through 12 grossly intact. No right sided upper or lower extremity weakness. ASSESSMENT AND PLAN -Acute CVA affecting the left mid cerebral artery presenting with extension of CVA status post left carotid endarterectomy with patch angioplasty 09/05. Continue patient on aspirin 325 mg daily, Lipitor 80 mg daily, Brilinta 90 mg twice daily. MRI of the brain as above. Cardiology has ordered event monitor. PFO with [id number] shunt. Cardiology consult appreciated. Follow with Dr. Del Angel. Recent acute CVA status post TPA. -Hypertension. Continue losartan 50 mg daily, Lopressor 25 mg twice daily. - Atherosclerotic heart disease: Post angioplasty and stent placement from January 2018 for the mid LAD, still seeing cardiology regular basis has been on secondary prevention apparently was and see cardiology recently. - Chronic history of iron deficiency anemia with history of gastrectomy. Hemoglobin stable. - Hyperlipidemia: Resume atorvastatin. - BPH: Watch patient for any urinary retention if need Flomax can be used. - Thrombocytopenia: With no sign and symptom of any pancytopenia this point continue conservative management only. - GI prophylaxis: Patient be on Pepcid. - DVT prophylaxis: Knee-high GLORIA hose and Venodyne boots will be used. CODE STATUS: Full code DISCHARGE PLAN home most likely on Thursday Impression and plan of care have been directed as dictated by the signing physician. Leonora Dominguez nurse practitioner acting as scribe for signing physician. Objective - Vital Signs Vital signs: Vital Signs Temp 98 F 09/06/21 08:00 Pulse 71 09/06/21 08:00 Resp 22 09/06/21 08:00 BP 105/65 09/06/21 08:00 Pulse Ox 95 09/06/21 08:00 FiO2 Intake & Output 09/05/21 09/06/21 09/06/21 18:59 06:59 18:59 Intake Total 2902 1270.493 311.893 Output Total 2255 2225 Balance 1337 -954.507 311.893 Weight 94.5 kg Intake: IV 2327 825 150 Sodium Chloride 0.9% 1, 225 825 150 000 ml @ 75 mls/hr IV . [id number] [facility] Rx#:[id number] Intake, IV Titration 75 195.493 41.893 Amount Lactated Ringers 1,000 ml 75 @ 0 mls/hr IV [facility] Rx#:[id number] Phenylephrine 40 mg In 195.493 41.893 Sodium Chloride 0.9% 250 ml @ 0.5 MCG/KG/MIN 16. 802 mls/hr IV .Q15H8M [facility] Rx#:[id number] Oral 500 250 120 Output: Urine 1535 2225 Estimated Blood Loss 30 Other: Voiding Method Indwelling Catheter # Voids 0 ABP, PAP, CO, CI - Last Documented Arterial Blood Pressure 116/48 - Labs CBC & Chem 7: 09/06/21 04:54 09/06/21 04:54 Labs: Abnormal Lab Results - Last 24 Hours (Table) 09/05/21 09/06/21 09/06/21 Range/Units 16:45 04:54 04:54 RBC 3.88 L (4.30-5.90) m/uL Hgb 12.2 L (13.0-17.5) gm/dL Hct 37.2 L (39.0-53.0) % Sodium 136 L (137-145) mmol/L Chloride 110 H (98-107) mmol/L Glucose 163 H (74-99) mg/dL POC Glucose (mg/dL) 213 H (70-110) mg/dL
--- NOTE | 2021-09-06 11:01 | P.PN ---
Subjective Progress Note Date: 09/06/21 The patient had left carotid endarterectomy yesterday and patient feels he is doing well. He feels he has a bit more strength over the right hand compared to prior. Denies of any new neurological issues. Objective - Vital Signs Vital signs: Vital Signs Temp 98 F 09/06/21 08:00 Pulse 61 09/06/21 10:30 Resp 25 H 09/06/21 10:30 BP 127/67 09/06/21 10:30 Pulse Ox 94 L 09/06/21 10:30 FiO2 Intake & Output 09/05/21 09/06/21 09/06/21 18:59 06:59 18:59 Intake Total 2902 1270.493 461.893 Output Total 1565 2225 Balance 1337 -954.507 461.893 Weight 94.5 kg Intake: IV 2327 825 300 Sodium Chloride 0.9% 1, 225 825 300 000 ml @ 75 mls/hr IV . [id number] [facility] Rx#:[id number] Intake, IV Titration 75 195.493 41.893 Amount Lactated Ringers 1,000 ml 75 @ 0 mls/hr IV [facility] Rx#:[id number] Phenylephrine 40 mg In 195.493 41.893 Sodium Chloride 0.9% 250 ml @ 0.5 MCG/KG/MIN 16. 802 mls/hr IV .Q15H8M [facility] Rx#:[id number] Oral 500 250 120 Output: Urine 1535 2225 Estimated Blood Loss 30 Other: Voiding Method Indwelling Catheter # Voids 0 ABP, PAP, CO, CI - Last Documented Arterial Blood Pressure 154/66 - Exam GENERAL: The patient is sitting in chair and is not in acute distress. NEUROLOGICAL: Higher mental function: The patient is awake, alert, oriented to self, place and time. Patient is following commands. No aphasia and no neglect. Cranial nerves: The pupils are round, equal and reactive to light and accommodation. Visual armas are full to confrontation throughout. Extraocular movement is intact no nystagmus is noted. Facial sensation is normal to touch throughout. The facial strength is mild right facial droop. Hearing is normal bilaterally to hand rub. Tongue is midline and moved igfu-bh-[id number] with out any difficulty. No dysarthria is noted. Shoulder shrug is normal bilaterally. Motor: Gait is normal. 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 Otherwise 5 over 5 throughout. Normal tone and bulk. Cerebellum: Normal finger to nose bilaterally. Sensation: Sensation is slightly decreased to touch over the right distal upper extremity. Otherwise normal to touch throughout. Reflexes (right/left): 2+ throughout Plantars are downgoing bilaterally. Some of the workup during this hospital visit consisted off Lipid panel: TG 92, Cholestrol 143, LDL 63 and HDL 61 CBC and chemistry panel were reviewed and they seemed unremarkable other than the platelets was 138,000. CT of the head is reported as cerebral atrophy. No acute intracranial abnormality. No change. I personally reviewed the CT of the head and there is no acute subacute ischemia. The patient has the risks residual old left frontal parietal seems more subacute to chronic from his recent stroke prior admission. CT angiography of the head and neck was reported as no significant intercranial and angiographic abnormality. Plaque formation proximal was 50% stenosis origin of the left ICA and 20% of the right ICA. 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 MRI Brain is reported as white matter changes consistent with extensive microvascular ischemia or do mind disease. There subacute or old small cortical infarct over the left parietal lobe. No change compared to recent exam. I reviewed the MRI and I do agree the finding is consistent with the previous MRI on the prior admission. - Labs CBC & Chem 7: 09/06/21 04:54 09/06/21 04:54 Labs: Abnormal Lab Results - Last 24 Hours (Table) 09/05/21 09/06/21 09/06/21 Range/Units 16:45 04:54 04:54 RBC 3.88 L (4.30-5.90) m/uL Hgb 12.2 L (13.0-17.5) gm/dL Hct 37.2 L (39.0-53.0) % Sodium 136 L (137-145) mmol/L Chloride 110 H (98-107) mmol/L Glucose 163 H (74-99) mg/dL POC Glucose (mg/dL) 213 H (70-110) mg/dL Assessment and Plan Assessment: Symptomatic Left ICA stenosis 50% s/p left carotid endarterectomy (09/05/2021) TIA (Worsening of right facial droop and hand weakness): Seems likely due to symptomatic Left ICA. Recent left parietal region status post IV TPA at the end of July 2021 with residual mild right facial weakness and right hand weakness +positive PFO on recent MAXINE Diabetes Hypertension Hyperlipidemia Coronary artery disease Benign prostate hyperplasia Plan: Continue aspirin 325 daily and Brilinta 90mg 1 tab bid. From neurological perspective no need for any additional antiplatletes or anticoagulation. Continue Lipitor 80mg qhs for secondary stroke prophylaxis. Vascular surgery team is on board. Patient has a PFO and cardiology is consulted for closure. They will hold off for now and to be addressed down the line if needed. Continue neuro checks Placed on cardiac monitoring PT OT and BOW STAPLER are consulted Recommend an event monitor for 30 days. Recommend to coordinate prior to discharge. We'll defer the rest of the medical management to primary team The plan is discussed with patient and his nurse Justus Lui M.D. Neuro-hospitalist Time with Patient: Less than 30
--- NOTE | 2021-09-06 15:11 | P.PN ---
Subjective Progress Note Date: 09/06/21 patient seen and examined. No complaints. Tolerating diet. Horne has been removed. Was on pressor support overnight due to marginal blood pressures. He feels overall he is doing better Objective - Vital Signs Vital signs: Vital Signs Temp 98.1 F 09/06/21 12:00 Pulse 84 09/06/21 15:00 Resp 22 09/06/21 15:00 BP 128/88 09/06/21 15:00 Pulse Ox 93 L 09/06/21 15:00 FiO2 Intake & Output 09/05/21 09/06/21 09/06/21 18:59 06:59 18:59 Intake Total 2902 9149.609 3717.250 Output Total 1565 2225 500 Balance 1337 -954.507 527.250 Weight 94.5 kg Intake: IV 2327 825 550 Sodium Chloride 0.9% 1, 225 825 550 000 ml @ 25 mls/hr IV . Q24H [facility] Rx#:[id number] Intake, IV Titration 75 195.493 117.250 Amount Lactated Ringers 1,000 ml 75 @ 0 mls/hr IV [facility] Rx#:[id number] Phenylephrine 40 mg In 195.493 117.250 Sodium Chloride 0.9% 250 ml @ 0.5 MCG/KG/MIN 16. 802 mls/hr IV .Q15H8M [facility] Rx#:[id number] Oral 500 250 360 Output: Urine 1535 2225 500 Estimated Blood Loss 30 Other: Voiding Method Indwelling Catheter Urinal # Voids 0 ABP, PAP, CO, CI - Last Documented Arterial Blood Pressure 151/64 - Exam No acute distress resting comfortably. Family at the bedside. HEENT normocephalic. Heart appears regular. Lungs are clear. Abdomen soft. Extremities without clubbing cyanosis or edema.drain from left neck is removed. Minimal serous and output. Incision is clean, dry, intact. No evidence of hematoma - Labs CBC & Chem 7: 09/06/21 04:54 09/06/21 04:54 Labs: Abnormal Lab Results - Last 24 Hours (Table) 09/05/21 09/06/21 09/06/21 Range/Units 16:45 04:54 04:54 RBC 3.88 L (4.30-5.90) m/uL Hgb 12.2 L (13.0-17.5) gm/dL Hct 37.2 L (39.0-53.0) % Sodium 136 L (137-145) mmol/L Chloride 110 H (98-107) mmol/L Glucose 163 H (74-99) mg/dL POC Glucose (mg/dL) 213 H (70-110) mg/dL Assessment and Plan Assessment: postoperative day #1 left carotid endarterectomy with patch angioplasty Symptomatic left internal carotid artery stenosis PFO Plan: overall the patient appears to be doing well. We can loosen his blood pressure parameters and then to discontinue the present support. Continue neuro checks. Drain is discontinued. Horne catheter discontinued. It presents as a ports are discontinue may discontinue A-line. May downgrade subsequently. Continue Antiplatelet therapy. hopeful for discharge in the next 24 hours. May followup with me in the office in approximately 2 weeks.
[2021-09-06] MEDS: ATORVASTATIN 80 MG TAB PO SCH (21:10)
[2021-09-07 05:50] VITALS: TEMP 97.7
[2021-09-07] MEDS: PHENYLEPHRINE 40 MG in SODIUM CHLORIDE 0.9% 250 ML IV SCH ×2 (07:35→11:08)
[2021-09-07] MEDS: LOSARTAN 50 MG TAB PO SCH (08:44)
[2021-09-07] MEDS: TICAGRELOR 90 MG TAB PO SCH (08:44)
[2021-09-07] MEDS: FAMOTIDINE 20 MG TAB PO SCH (08:44)
[2021-09-07] MEDS: ASPIRIN 325 MG TAB PO SCH (08:44)
[2021-09-07] MEDS: METOPROLOL TARTRATE 25 MG TAB PO SCH (08:44)
[2021-09-07] MEDS: HEPARIN SODIUM,PORCINE/PF 5,000 UNIT/0.5 ML SYRINGE SQ SCH (08:45)
[2021-09-07 11:02] VITALS: BP 156/90; PULSE 54; RESP 16
--- NOTE | 2021-09-07 11:02 | P.PN ---
Progress Note - Text Progress Note Date: 09/07/21 Patient seen and examined. No complaints. Tolerating diet. Urinating without difficulty. incision is clean, dry, intact. Neurologically intact with no gross deficits. Postoperative day #2 from left carotid endarterectomy for symptomatic carotid stenosis Okay for discharge from vascular standpoint. Follow-up in the office in 2 weeks. May shower.
--- NOTE | 2021-09-07 11:36 | P.DS ---
Providers Date of admission: 09/03/21 11:13 Attending physician: Poonam Pierce Consults: 09/02/21 19:13 Consult Physician Urgent Consulting Provider: Justus Lui Consult Reason/Comments: acute cva, recent cva Do you want consulting provider notified?: Yes Consult Physician Urgent Consulting Provider: Nasra Horne Consult Reason/Comments: carotid disease Do you want consulting provider notified?: Yes 09/03/21 09:08 Consult Physician Routine Consulting Provider: Manolo Casillas Consult Reason/Comments: PFO closure at later date Do you want consulting provider notified?: Yes Primary care physician: [facility] Course: HISTORY OF PRESENT ILLNESS 76-year-old male one of my office patient with known for long time with multiple medical problem known to have history of anemia with iron deficiency, history of hypertension, history of CAD post angioplasty and stent placement 3 years ago, history of hyper and severe gastroesophageal reflux disease with peptic ulcer disease post stomach surgery. 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 Patient underwent MAXINE that showed a small PFO with [id number] shunt and also carotid ultrasound revealed right carotid artery disease of 50-69%. Patient was discharged home in stable condition. Patient had developed sudden onset of tingling and his f ingers and weakness as well as facial droop. He states he was using a stress ball and he could notice a difference. Patient return to the emergency center for further evaluation. Patient was found to be afebrile, heart rate in the 60s, blood pressure 147/86, pulse ox 99% on room air. EKG was a sinus rhythm with no acute ST changes. CBC revealed platelet count of 138. Electrolytes and renal function normal. Blood sugar 107. Liver function tests were normal. Troponin negative. CT angiogram of the head and neck revealed no significant abnormality. Plaque formation approximately 50% stenosis of the left internal carotid artery and 20% stenosis of the right. 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 CAT scan of the brain showed no acute intracranial abnormality. Cerebral atrophy. Patient admitted to the cardiac stepdown unit and consult in place with vascular surgery with plan for left carotid endarterectomy on . Consult added for cardiology regarding PFO which will require probable closure at a later date. 09/04: Patient is found in his room standing and ambulating. No significant weakness. No new complaints from the patient. He is scheduled for carotid endarterectomy tomorrow. MRI of the brain ordered by neurology is currently pending. Patient has been seen by cardiology and event monitor has been ordered. We will plan outpatient follow-up with Dr. Del Angel regarding PFO closure at a later time. 09/05: Patient has left for surgery. He has remained afebrile, heart rate in the 50s and 60s, blood pressure 159/93 and pulse ox 95% on room air. Patient's family have been updated. MRI of the brain revealed diffuse cerebral atrophy. White matter changes consistent with extensive microvascular ischemia or demyelinating disease. There is subacute or old small cortical infarct left parietal lobe. No change compared to recent exam. 09/06: Patient is seen today in the intensive care unit postop day #1 left carotid endarterectomy with patch angioplasty performed by Dr. Horne with recommendations for Brilinta and aspirin. He has not been out of bed as of yet. He has slight weakness on the right upper extremity. Blood pressure to be maintained between 120 and 180 currently on Virgil-Synephrine drip per vascular surgery. 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 Repeat blood work reveals hemoglobin 12.2. Creatinine 0.86. 09/07: Patient is doing very well he stayed in ICU as an overflow from yesterday, his blood pressure has been better controlled with continue to run slightly red around 150, vascular took away the restriction of having the blood pressure above 150 anymore at this point, we'll titrate losartan up to 100 mg and add hydralazine on an as-needed basis to keep the systolic below 150 or diastolic below 88. Discussion with neurology today about antiplatelet agent after this time of surgery with stroke felt strongly keeping antiplatelet agent only necessity for 1 month be on the one month patient can go back on aspirin only the meanwhile will decrease his aspirin from 325 to81 mg keep in mind that patient had history of gastrointestinal bleed and gastrectomy he will be on 81 mg till his Brilinta stopped completely after 1 month we will increase his aspirin to 162 mg by then. She is stable to be discharged home was cleared by vascular and neurology as well. REVIEW OF SYSTEMS Constitutional: No fever, no chills, no night sweats. No weight change. No weakness, fatigue or lethargy. No daytime sleepiness. EENT: No headache. No blurred vision or double vision, no loss of vision. No loss of Hearing, no ringing in the ears, no dizziness. No nasal drainage or congestion. No epistaxis. No sore throat.positive droopy face. Lungs: No shortness of breath, cough, no sputum production. No wheezing. Cardiovascular: No chest pain, no lower extremity edema. No palpitations. No paroxysmal nocturnal dyspnea. No orthopnea. No lightheadedness or dizziness. No syncopal episodes. Abdominal: No abdominal pain. No nausea, vomiting. No diarrhea. No constipation. No bloody or tarry stools.. No loss of appetite. Genitourinary: No dysuria, increased frequency, urgency. No urinary retention. Musculoskeletal: No myalgias. No muscle weakness, no gait dysfunction, no frequent falls. No back pain. No neck pain. Integumentary: No wounds, no lesions. No rash or pruritus. No unusual bruising. No change in hair or nails. Neurologic: Tingling and weakness and the right arm, facial droop-resolved Psychiatric: No depression. No anxiety. No mood swings. Endocrine: No abnormal blood sugars. No weight change. No excessive sweating or thirst. No cold intolerance. PHYSICAL EXAMINATION Gen: This is well-developed laying in bed no acute respiratory distress. HEENT: Head is atraumatic, normocephalic. Pupils equal, round. Sclerae is anicteric. NECK: Supple. No JVD. No lymphadenopathy. No thyromegaly. LUNGS: Clear to auscultation. No wheezes or rhonchi. No intercostal retractions. HEART: Regular rate and rhythm. No murmur. ABDOMEN: Soft. Bowel sounds are present. No masses. No tenderness. EXTREMITIES: No pedal edema. No calf tenderness. NEUROLOGICAL: Patient is awake, alert and oriented x3. Cranial nerves 2 through 12 grossly intact. No right sided upper or lower extremity weakness. ASSESSMENT AND PLAN -Acute CVA affecting the left mid cerebral artery presenting with extension of CVA status post left carotid endarterectomy with patch angioplasty 09/05. We will decrease his aspirin to 81 mg, continue Lipitor at 18 continue Brilinta 90 mg twice a day. - Acute thrombus left carotid: Post carotid endarterectomy successful surgery patient remain on antiplatelet agent along with aspirin. PFO with [id number] shunt. Cardiology consult appreciated. Follow with Dr. Del Angel. Recent acute CVA status post TPA. Able with no sign of bleeding. -Hypertension. Still not control we will titrate losartan up to 100 mg a day continue Lopressor 25 mg a day and add hydralazine 25 mg for systolic above 150 or diastolic above 88. - Atherosclerotic heart disease: Post angioplasty and stent placement from January 2018 for the mid LAD, still seeing cardiology regular basis has been on secondary prevention apparently was and see cardiology recently. - Chronic history of iron deficiency anemia with history of gastrectomy. Hemoglobin stable. - Hyperlipidemia: Resume atorvastatin. - BPH: Watch patient for any urinary retention if need Flomax can be used. - Thrombocytopenia: With no sign and symptom of any pancytopenia this point continue conservative management only. - GI prophylaxis: Patient be on Pepcid. CODE STATUS: Full code Hospital course: Patient ended up going for carotid endarterectomy in the hospital, review his echo with the PFO and felt does not reason why the extension and original stroke happen at the leave the frail area around the Atheroma in the left carotid is the reason why this happened. Patient ended up in the ICU for 2 days his blood pressure was stabilized doing well, he strength in the right side almost back to normal. Patient will be stable to be discharged home today and was cleared by vascular and neurology. DISCHARGE PLAN home today patient is very stable. Patient Condition at Discharge: Good Plan - Discharge Summary Discharge Rx Participant: No New Discharge Prescriptions: New Losartan Potassium [Cozaar] 100 mg PO DAILY #90 tablet Famotidine [Pepcid] 20 mg PO DAILY #60 tab hydrALAZINE HCL 25 mg PO Q6HR PRN #60 tablet PRN Reason: Blood Pressure - High Continue Aspirin [[place] Aspirin EC] 81 mg PO DAILY Metoprolol Tartrate [Lopressor] 25 mg PO BID #60 tab Nitroglycerin Sl Tabs [Nitrostat] 0.4 mg SUBLINGUAL Q5M PRN #25 tab PRN Reason: Chest Pain Ticagrelor [Brilinta] 90 mg PO BID #30 tab Atorvastatin [Lipitor] 80 mg PO HS tab Discontinued Losartan [Cozaar] 50 mg PO DAILY Discharge Medication List Aspirin [[place] Aspirin EC] 81 mg PO DAILY 02/14/18 [History] Metoprolol Tartrate [Lopressor] 25 mg PO BID #60 tab 02/17/18 [Rx] Nitroglycerin Sl Tabs [Nitrostat] 0.4 mg SUBLINGUAL Q5M PRN #25 tab 02/17/18 [Rx] Atorvastatin [Lipitor] 80 mg PO HS tab 09/01/21 [Rx] Ticagrelor [Brilinta] 90 mg PO BID #30 tab 09/01/21 [Rx] Famotidine [Pepcid] 20 mg PO DAILY #60 tab 09/07/21 [Rx] Losartan Potassium [Cozaar] 100 mg PO DAILY #90 tablet 09/07/21 [Rx] hydrALAZINE HCL 25 mg PO Q6HR PRN #60 tablet 09/07/21 [Rx] Follow up Appointment(s)/Referral(s): Anayeli Del Angel MD [STAFF PHYSICIAN] - 10/07/21 (Follow up with Dr. Del Angel in office to evalutate cardiac event monitor, monitor to be worn for 30 days. Plea se call Thursday to make follow up appointment) Niall Rojo MD [Primary Care Provider] - 1-2 days (Please call Thursday to make follow up appointment. When you follow up with Dr. Rojo get a referral for a neurologist outside of [place]. ) Nasra Horne DO [STAFF PHYSICIAN] - 2 Weeks (Please call Thursday to make follow up appointment.) Patient Instructions/Handouts: Carotid Endarterectomy (DC) Activity/Diet/Wound Care/Special Instructions: Keep event rn cardiac on until October 06, change the cardiac patches every 7 days. You may shower with cardiac patches on. Do not bathe or submerge patches in water. You have been given 2 batteries to keep the monitor charged. Keep phone with you at all times. Follow instructions packet. Discharge Disposition: HOME SELF-CARE
--- NOTE | 2021-09-07 13:25 | P.PN ---
Subjective Progress Note Date: 09/07/21 The patient is seen at beside and states he continues to be doing well. Denies of any new neurological issues. Objective - Vital Signs Vital signs: Vital Signs Temp 97.7 F 09/07/21 08:00 Pulse 54 L 09/07/21 11:00 Resp 16 09/07/21 11:00 BP 156/90 09/07/21 11:00 Pulse Ox 95 09/07/21 11:00 FiO2 Intake & Output 09/06/21 09/07/21 09/07/21 18:59 06:59 18:59 Intake Total 1147.250 480 Output Total 1300 650 0 Balance -152.750 -170 0 Weight 95.4 kg Intake: IV 550 Sodium Chloride 0.9% 1, 550 000 ml @ 25 mls/hr IV . Q24H RAMY Rx#:[id number] Intake, IV Titration 117.250 Amount Phenylephrine 40 mg In 117.250 Sodium Chloride 0.9% 250 ml @ 0.5 MCG/KG/MIN 16. 802 mls/hr IV .Q15H8M RAMY Rx#:[id number] Oral 480 480 Output: Urine 1300 650 0 Other: Voiding Method Urinal Urinal Urinal # Voids 0 1 ABP, PAP, CO, CI - Last Documented Arterial Blood Pressure 151/64 - Exam GENERAL: The patient is sitting in chair and is not in acute distress. HENT: Scar over the left side of neck. NEUROLOGICAL: Higher mental function: The patient is awake, alert, oriented to self, place and time. Patient is following commands. No aphasia and no neglect. Cranial nerves: The pupils are round, equal and reactive to light and accommodation. Visual armas are full to confrontation throughout. Extraocular movement is intact no nystagmus is noted. Facial sensation is normal to touch throughout. The facial strength is mild right facial droop. Hearing is emy l bilaterally to hand rub. Tongue is midline and moved [id number] without any difficulty. No dysarthria is noted. Shoulder shrug is normal bilaterally. Motor: Gait is normal. The strength is right hand cullet crusher and washer and wrist strength is 4+. Otherwise 5 over 5 throughout. Normal tone and bulk. Cerebellum: Normal finger to nose bilaterally. Sensation: Sensation is slightly decreased to touch over the right distal upper extremity. Otherwise normal to touch throughout. Reflexes (right/left): 2+ throughout Plantars are downgoing bilaterally. Some of the workup during this hospital visit consisted off Lipid panel: TG 92, Cholestrol 143, LDL 63 and HDL 61 CBC and chemistry panel were reviewed and they seemed unremarkable other than the platelets was 138,000. CT of the head is reported as cerebral atrophy. No acute intracranial abnormality. No change. I personally reviewed the CT of the head and there is no acute subacute ischemia. The patient has the risks residual old left frontal parietal seems more subacute to chronic from his recent stroke prior admission. CT angiography of the head and neck was reported as no significant intercranial and angiographic abnormality. Plaque formation proximal was 50% stenosis origin of the left ICA and 20% of the right ICA. 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 MRI Brain is reported as white matter changes consistent with extensive microvascular ischemia or do mind disease. There subacute or old small cortical infarct over the left parietal lobe. No change compared to recent exam. I reviewed the MRI and I do agree the finding is consistent with the previous MRI on the prior admission. - Labs CBC & Chem 7: 09/06/21 04:54 09/06/21 04:54 Assessment and Plan Assessment: Symptomatic Left ICA stenosis 50% s/p left carotid endarterectomy (09/05/2021) TIA (Worsening of right facial droop and hand weakness): Seems likely due to symptomatic Left ICA. Recent left parietal region status post IV TPA at the end of July 2021 with residual mild right facial weakness and right hand weakness +positive PFO on recent MAXINE Diabetes Hypertension Hyperlipidemia Coronary artery disease Benign prostate hyperplasia Plan: Continue aspirin 325 daily and Brilinta 90mg 1 tab bid for 4 weeks (was not on antiplatelets prior to this) and had endarerectomy. I spoke with primary and since patient has history of chronic anemia with history of gastrectomy consider stopping dual antiplatetlets after 4 week but continue ASA indefinetily but needs to be evaluated as outpatient within 2 weeks to further discussion. Continue Lipitor 80mg qhs for secondary stroke prophylaxis. Vascular surgery team is on board. Patient has a PFO and cardiology is consulted for closure. They will hold off for now and to be addressed down the line if needed. Continue neuro checks Placed on cardiac monitoring PT OT and LABOR ECONOMICS PROFESSOR are consulted Recommend an event monitor for 30 days. Recommend to coordinate prior to discharge. We'll defer the rest of the medical management to primary team Patient is clear for discharge from neurological perspective. The plan is discussed with patient and primary team. Justus Lui M.D. Neuro-hospitalist Time with Patient: Less than 30
== END 2021-09-07 12:10 | disposition home or self-care (01) | DRG 37 ==
LOC: EC 17:06 → 3SCARD 19:11 → OBSVTOIN 09-03 11:13 → 2SICU 09-05 16:20
PROVIDERS: ADMIT Family Medicine; ATTEND Family Medicine
PROC: 03UL0KZ Supplement Left Internal Carotid Artery with Nonautologous Tissue Substitute, Open Approach (ICD-10-PCS; 2021-09-05)
PROC: 03CL0ZZ Extirpation of Matter from Left Internal Carotid Artery, Open Approach (ICD-10-PCS; principal; 2021-09-05 10:00)
DX: I63.032 Cerebral infarction due to thrombosis of left carotid artery (principal); I63.512 Cerebral infarction due to unspecified occlusion or stenosis of left middle cerebral artery; Q21.1 Atrial septal defect; I65.22 Occlusion and stenosis of left carotid artery; E78.5 Hyperlipidemia, unspecified; I10 Essential (primary) hypertension; K21.9 Gastro-esophageal reflux disease without esophagitis; I67.1 Cerebral aneurysm, nonruptured; N40.0 Benign prostatic hyperplasia without lower urinary tract symptoms; I44.0 Atrioventricular block, first degree; G83.21 Monoplegia of upper limb affecting right dominant side; E11.9 Type 2 diabetes mellitus without complications; R29.810 Facial weakness; D50.9 Iron deficiency anemia, unspecified; R29.703 NIHSS score 3; I25.10 Atherosclerotic heart disease of native coronary artery without angina pectoris; D69.6 Thrombocytopenia, unspecified; I25.2 Old myocardial infarction; Z95.5 Presence of coronary angioplasty implant and graft; Z82.49 Family history of ischemic heart disease and other diseases of the circulatory system; Z79.02 Long term (current) use of antithrombotics/antiplatelets; Z79.82 Long term (current) use of aspirin; Z79.899 Other long term (current) drug therapy; Z90.3 Acquired absence of stomach [part of]
CPT/HCPCS: 36415; 70450; 70496; 70498; 70551; 80048; 80053; 80061; 84484; 85025; 85610; 85730; 86850; 86900; 86901; 88304; 88305; 88311; 93005; 93270; 99291

== ENCOUNTER → 2022-03-05 | Outpatient (CLI) | payer MEDICARE ==
[2022-03-05 16:16] LABS: Chol/HDL Ratio 2.27 Ratio; LDL Cholesterol,Calculated 82.9 mg/dL (0.0-131.0); VLDL Calculation 18.36 mg/dL (5.00-40.00)
[2022-03-05 18:23] LABS: ALT 38 U/L (10-49); AST 38 U/L (14-35)
== END | disposition home or self-care (01) ==
LOC: LABWHC1 07:55
PROVIDERS: ATTEND Internal Medicine Interventional Cardiology
DX: E78.2 Mixed hyperlipidemia (principal)
CPT/HCPCS: 36415; 80061; 84450; 84460

== ENCOUNTER 2023-10-30 10:48 | Day surgery (SDC) | payer MEDICARE ==
[~2023-10-30 10:48] MED LIST: Pre Op ABX Message 1 EACH MISC MISCELLANE ONE
[2023-10-30] MEDS: IV FLUID CONTINUATION 1,000 ML IV ONE (11:00)
[2023-10-30] MEDS: LACTATED RINGERS 1,000 ML IV SCH (11:05)
[2023-10-30] MEDS: ONDANSETRON 4 MG/2 ML VIAL IVP STA (11:07)
[2023-10-30] MEDS: DEXAMETHASONE SOD PHOSPHATE 4 MG/ML 1 ML VIAL IVP STA (11:08)
[2023-10-30] MEDS: OFLOXACIN 0.3% OPHTH DROPS 5 ML BOTTLE LEFT EAR ONE ×2 (11:46→12:06)
[2023-10-30] MEDS ORDERED: MIDAZOLAM 2 MG/2 ML VIAL ONE (11:50)
[2023-10-30] MEDS ORDERED: PROPOFOL 10 MG/ML 20 ML VIAL IV ONE (11:50)
[2023-10-30] MEDS ORDERED: fentaNYL (PF) 50 MCG/ML 2 ML AMP ONE (11:50)
[2023-10-30] MEDS ORDERED: PHENYLEPHRINE 10 MG/ML VIAL ONE (11:50)
[2023-10-30] MEDS ORDERED: LIDOCAINE 1% INJ 10MG/ML (20 ML MDV) ONE (11:50)
[2023-10-30 12:31] VITALS: TEMP 98
[2023-10-30 14:20] VITALS: BP 141/90; PULSE 55; RESP 18
--- NOTE | 2023-11-03 11:48 | OP ---
OPERATIVE REPORT DATE OF SERVICE : 10/30/2023 PREOPERATIVE DIAGNOSIS: Chronic left serous otitis media. POSTOPERATIVE DIAGNOSIS: Chronic left serous otitis media. ANESTHESIA: General with LMA tube. OPERATIVE PROCEDURE: Left myringotomy with insertion of a plastic ventilation tube. COMPLICATIONS: None. ESTIMATED BLOOD LOSS: 0. DESCRIPTION OF PROCEDURE: The patient was placed on the operating table in supine position. After uneventful induction and LMA insertion, satisfactory general anesthesia was obtained. Next, the patient's head was draped in the usual and customary fashion. Following this, #3 aural speculum was inserted into the patient's left ear and using the Zeiss operating microscope under magnified visualization, the left external auditory canal was cleansed of all wax and debris. Next, the myringotomy knife was used to make an incision in the anterior-inferior quadrant of the left tympanic membrane. The middle ear space was suctioned free of all fluid and a plastic Goldie-bobbin ventilation tube was inserted without difficulty. At this point, the procedure was terminated. There were no intraoperative complications. The patient tolerated the procedure well and was returned to the recovery room in satisfactory condition. MMODL / IJN: [id number] /
--- NOTE | 2023-11-04 15:55 | HP ---
HISTORY AND PHYSICAL CHIEF COMPLAINT: Fluid in the left ear. HISTORY OF PRESENT ILLNESS: The patient is a 78-year-old male who was recently seen in my office complaining of a plugged sensation in his left ear. The patient has had a previous right stapedectomy for otosclerosis by Dr. Byrne at the [facility]. At the time that the patient was seen in my office, clinical examination of ears revealed that there was fluid in the left middle ear space. It was recommended the patient undergo a left myringotomy with insertion of a ventilation tube under IV sedation with MAC. PAST MEDICAL HISTORY: Reveals he has no allergies to medications. CURRENT MEDICATIONS: Include: 1. Metoprolol. 2. Lisinopril. 3. Brilinta. 4. Zantac. 5. Atorvastatin. 6. FeroSul. 7. Nitrostat. 8. Metformin. REVIEW OF SYSTEMS: CARDIOVASCULAR SYSTEM: Positive for hypertension and ASHD. GASTROINTESTINAL SYSTEM: Positive for GERD (gastroesophageal reflux disorder). METABOLIC/ENDOCRINE SYSTEM: Positive for type 2 diabetes mellitus and hypercholesterolemia. The remainder of the review of systems is essentially unremarkable. PHYSICAL EXAMINATION: GENERAL: This patient is a 78-year-old male who is alert and cooperative. HEENT: The patient is normocephalic. Examination of the right ear is unremarkable. Examination of the left ear reveals chronic left serous otitis media. Pupils are equal, round, reactive to light and accommodation. Extraocular movements within normal limits. Intranasal examination reveals severe septal deviation with compensatory hypertrophy of inferior turbinates and a moderate amount of mucus on the mucous membranes and draining down the posterior pharynx. Examination of the oropharynx and the remainder of the head and neck exam are within normal limits. CHEST/CARDIOVASCULAR: Both lung armas are clear to percussion and auscultation. The patient is in regular sinus rhythm. S1, S2 are present without murmurs. Peripheral pulses are bilaterally symmetrical. ABDOMEN: No evidence any masses, megaly, or tenderness. The abdomen is soft. SKIN: Unremarkable. MUSCULOSKELETAL/NEUROLOGICAL: Within normal limits. RECTAL: Deferred at this time because the patient has done on a regular basis at his family physician's office. The remainder of the physical exam is essentially unremarkable. IMPRESSION: Chronic left serous otitis media. PLAN: The patient is scheduled to undergo a left myringotomy with insertion of a ventilation tube under IV sedation with MAC in a.m. Attention RNs in the pre-surgical area, I have not ordered any pre-surgical prophylactic antibiotics for this patient. If the pharmacy department sends any pre-surgical prophylactic antibiotics to the pre-surgical area for this patient, that order should be cancelled, and the medication should be returned to the pharmacy department. Also make sure that the patient's account is credited appropriately. I have discussed the risks, benefits and alternative therapies for the above-mentioned procedure and for both sedation/analgesia as well as necessary blood product administration, if indicated, as they pertain to this patient. The patient has indicated his or her understanding and acceptance of the risks and procedures discussed. MMODL / IJN: [id number] /
== END 2023-10-30 14:22 | disposition home or self-care (01) ==
LOC: OR 10:48
PROVIDERS: ATTEND Otolaryngology
DX: H65.22 Chronic serous otitis media, left ear